=== PATIENT | male | born 1990 | race Caucasian/White ===

== ENCOUNTER → 2017-08-01 | Outpatient (CLI) | payer MEDICARE, MEDICAID ==
[~2017-08-01] MED LIST: AMLO1TAB52; ATRV10T PO; CHLO250T9; CYCL100C3 PO; CYCLOSPORIN PO; CYCLOSPORINE; DIPH25TA82; FLT05NA16; FURO40TA4; HYDR10TA13 PO; HYDR1TAB PO; HYDROCHLOROTHIAZIDE; INSU3CAR; INSULIN PUMP; LABE100T2; LAMO100T69; LAMO100T69 PO; LAMO150T3 PO; LAMO200T14; LISI20TA; LISI40TA; LISI40TA PO; MULT-608 PO; NF-FLON16G; NOVOLOG; OMEP-10; OMG1KC PO; PENICILLIN; PRD10T; PRD10T PO; PRD20T PO; RNT150T; SAWP1CAP PO; SERT50TA2 PO; TRAZ150T42 PO; TRM50T PO; [UNRECOGNIZED DRUG - CODE]; [UNRECOGNIZED DRUG - CODE] PO
[2017-08-01 13:51] LABS: BILIRUBIN,URINE NEGATIVE (NEGATIVE); KETONES,URINE NEGATIVE (NEGATIVE); LEUKOCYTE ESTERASE ,URINE NEGATIVE (NEGATIVE); NITRITE,URINE NEGATIVE (NEGATIVE); PH,URINE 5 (5-9); PROTEIN,URINE 2+ (NEGATIVE); UROBILINOGEN,URINE NORMAL (NORMAL)
[2017-08-01 14:02] LABS: MEAN PLATELET VOLUME 9.9 FL (7.4-10.4); RED BLOOD COUNT 4.4 10^6/uL (4.35-5.85); RED CELL DISTRIBUTION WIDTH 12.1 % (10.0-14.5); WHITE BLOOD COUNT 10.4 10^3/uL (4.3-11.0)
[2017-08-01 14:10] LABS: PROTEIN/CREATININE RATIO 0.76
[2017-08-01 14:16] LABS: SQUAMOUS EPITHELIAL CELL,UR RARE /HPF; WBC,URINE RARE /HPF
[2017-08-01 14:23] LABS: ALBUMIN 3.9 GM/DL (3.2-4.5); CALCIUM 9.3 MG/DL (8.5-10.1); CREATININE SERUM 4.01 MG/DL (0.60-1.30); PHOSPHORUS 4.4 MG/DL (2.3-4.7); POTASSIUM 4.3 MMOL/L (3.6-5.0)
[2017-08-02 07:14] LABS: CALCIUM PARA THYROID HORMONE 9.3 mg/dL (8.5-10.5)
== END ==
LOC: LAB 13:33
PROVIDERS: ATTEND Internal Medicine Nephrology
DX: E10.22 Type 1 diabetes mellitus with diabetic chronic kidney disease (principal); N18.4 Chronic kidney disease, stage 4 (severe); G40.109 Localization-related (focal) (partial) symptomatic epilepsy and epileptic syndromes with simple partial seizures, not intractable, without status epilepticus; R80.9 Proteinuria, unspecified; Z87.448 Personal history of other diseases of urinary system
CPT/HCPCS: 36415; 80069; 81000; 82306; 82570; 83970; 84156; 85027

== ENCOUNTER → 2017-11-06 | Outpatient (CLI) | payer MEDICARE, MEDICAID ==
[2017-11-06 15:28] LABS: HEMOGLOBIN 14.7 G/DL (13.3-17.7); MEAN PLATELET VOLUME 9.7 FL (7.4-10.4); RED BLOOD COUNT 4.95 10^6/uL (4.35-5.85); RED CELL DISTRIBUTION WIDTH 13.2 % (10.0-14.5); WHITE BLOOD COUNT 9.9 10^3/uL (4.3-11.0)
[2017-11-06 15:47] LABS: ALBUMIN 4.2 GM/DL (3.2-4.5); BILIRUBIN,TOTAL 0.4 MG/DL (0.1-1.0); CREATININE SERUM 4.72 MG/DL (0.60-1.30); POTASSIUM 4.9 MMOL/L (3.6-5.0); TOTAL PROTEIN 6.9 GM/DL (6.4-8.2)
== END ==
LOC: LAB 14:43
PROVIDERS: ATTEND Psychiatry & Neurology Neurology
DX: G40.909 Epilepsy, unspecified, not intractable, without status epilepticus (principal); Z79.899 Other long term (current) drug therapy
CPT/HCPCS: 36415; 80053; 80175; 85027

== ENCOUNTER 2017-11-14 18:07 | Emergency (ER) | payer MEDICARE, MEDICAID ==
[~2017-11-14] VITALS: Ht 154.9 cm; Wt 64.4 kg
--- OUTSIDE RECORDS SUMMARY | 2017-11-14 18:13 | XMS REPORT ---
Author Author ROSENDO RODRÍGUEZ Organization [facility] [place], [facility] Address [address] [place] [address] Care Team Providers Care Caterpillar Tractor Operator Name Role Phone ROSENDO RODRÍGUEZ Unavailable PROBLEMS Type Condition ICD9-CM Code WOK41-UT Code Onset Dates Condition Status SNOMED Code Problem Intrinsic eczema L20.84 Active 06062875 Problem Type 1 diabetes mellitus without complication E10.9 Active 007400154 Problem Dysthymic disorder F34.1 Active 94115403 ALLERGIES No Information SOCIAL HISTORY Never Assessed PLAN OF CARE Activity Details Follow Up next available Reason:depression VITAL SIGNS MEDICATIONS Medication Instructions Dosage Frequency Start Date End Date Duration Status PredniSONE Active Lamotrigine Active Furosemide Active Potassium Active Lisinopril Active Citalopram Hydrobromide Active RESULTS No Results PROCEDURES Procedure Date Ordered Result Body Site Psychotherapy, patient &/family, 30 minutes, new patient January 05, 2017 IMMUNIZATIONS No Known Immunizations MEDICAL (GENERAL) HISTORY Type Description Date Medical History nephrotic syndrome Medical History diabetes Medical History epilepsy Medical History HTN Medical History low testosterone Surgical History kidney biopsy Hospitalization History Concussion- hospitalized for 1 month 2014 (?)
--- OUTSIDE RECORDS SUMMARY | 2017-11-14 18:13 | XMS REPORT ---
Author Author ROSENDO RODRÍGUEZ Organization [facility] Address [address] [place] [address] Care Team Providers Care Customer Accounts Advisor Name Role Phone ROSENDO RODRÍGUEZ Unavailable PROBLEMS Type Condition ICD9-CM Code [id number] Code Onset Dates Condition Status SNOMED Code Problem Intrinsic eczema L20.84 Active 29418161 Problem Type 1 diabetes mellitus without complication E10.9 Active 466060120 Problem Dysthymic disorder F34.1 Active 35315247 ALLERGIES No Information SOCIAL HISTORY Never Assessed PLAN OF CARE VITAL SIGNS MEDICATIONS Unknown Medications RESULTS No Results PROCEDURES Procedure Date Ordered Result Body Site [facility] VISIT MENTAL HEALTH ESTAB PT January 23, 2017 Psychotherapy, patient &/family, 30 minutes, established patient January 23, 2017 IMMUNIZATIONS No Known Immunizations MEDICAL (GENERAL) HISTORY Type Description Date Medical History nephrotic syndrome Medical History diabetes Medical History epilepsy Medical History HTN Medical History low testosterone Surgical History kidney biopsy Hospitalization History Concussion- hospitalized for 1 month 2014 (?)
--- OUTSIDE RECORDS SUMMARY | 2017-11-14 18:13 | XMS REPORT ---
Author Author ROSENDO RODRÍGUEZ Organization [facility] Address [address] [place] [address] Care Team Providers Care Real Estate Attorney Name Role Phone ROSENDO RODRÍGUEZ Unavailable PROBLEMS Type Condition ICD9-CM Code GAW26-UD Code Onset Dates Condition Status SNOMED Code Problem Intrinsic eczema L20.84 Active 86439696 Problem Type 1 diabetes mellitus without complication E10.9 Active 562397141 Problem Dysthymic disorder F34.1 Active 78559601 ALLERGIES No Information SOCIAL HISTORY Never Assessed PLAN OF CARE Activity Details Follow Up Next available Reason:depression VITAL SIGNS MEDICATIONS Unknown Medications RESULTS No Results PROCEDURES Procedure Date Ordered Result Body Site [facility] VISIT MENTAL HEALTH ESTAB PT January 15, 2017 Psychotherapy, patient &/family, 30 minutes, established patient January 15, 2017 IMMUNIZATIONS No Known Immunizations MEDICAL (GENERAL) HISTORY Type Description Date Medical History nephrotic syndrome Medical History diabetes Medical History epilepsy Medical History HTN Medical History low testosterone Surgical History kidney biopsy Hospitalization History Concussion- hospitalized for 1 month 2014 (?)
--- NOTE | 2017-11-14 20:12 | ED Head Injury ---
General Chief Complaint: Trauma-Non Activation Stated Complaint: JAW PAIN;NAUSEA Nursing Triage Note: PT AMBULATED TO ED C/O JAW PAIN FROM FALL ON 11/10/17. Source: patient Exam Limitations: no limitations History of Present Illness Date Seen by Provider: Nov 14, 2017 Allergies and Home Medications Allergies Coded Allergies: Penicillins (Verified Allergy, Unknown, 11/14/17) levetiracetam (Verified Allergy, Unknown, 11/14/17) promethazine (Verified Allergy, Unknown, 04/04/09) Home Medications Atorvastatin Calcium 10 Mg Tablet, 1 EACH PO DAILY, (Reported) Chlorothiazide 500 Mg Tablet, 500 MG PO DAILY, (Reported) Cyclosporine, Modified 100 Mg Capsule, 125 MG PO BID, (Reported) Fluticasone Propionate 50 Mcg/16 G [place], 50 MCG NA DAILY, (Reported) Hydrocodone Bit/Acetaminophen 1 Tab Tab, 1 TAB PO Q4H PRN for pain Prescribed by: MAYELA LOPEZ on 11/14/172229 Lamotrigine 100 Mg Tablet, 125 MG PO BID, (Reported) Lisinopril 40 Mg Tablet, 1 EACH PO DAILY, (Reported) Multivitamins 1 Tab Tablet, 1 TAB PO DAILY, (Reported) [place] 3 Polyunsat Fatty Acids 1,000 Mg Cap, 900 MG PO DAILY, (Reported) Prednisone 10 Mg Tab, 10 MG PO QOD, (Reported) Sawpalmtofrtxt/Zinc Picolinate 1 Each Capsule, 1 EACH PO BID, (Reported) Sertraline Hcl 50 Mg Tablet, 50 MG PO DAILY, (Reported) Trazodone Hcl 150 Mg Tablet, 100 MG PO PRN, (Reported) Past Qwxxwcg-Nntqpb-Swfpvi Hx Patient Social History Recent Foreign Travel: No Contact w/Someone Who Travel: No Recent Infectious Disease Expo: No Reproductive System Hx Reproductive Disorders: No Physical Exam Vital Signs Vital Signs - First Documented 11/14/17 11/14/17 18:27 19:10 Temp 98.0 Pulse 87 Resp 16 B/P (MAP) 130/91 (104) Pulse Ox 97 O2 Delivery Room Air Capillary Refill : Less Than 3 Seconds Progress/Results/Core Measures Results/Orders Lab Results Laboratory Tests Test 11/14/17 20:30 11/14/17 20:36 Range/Units White Blood Count 9.6 4.3-11.0 10^3/uL Red Blood Count 4.98 4.35-5.85 10^6/uL Hemoglobin 14.9 13.3-17.7 G/DL Hematocrit 43 40-54 % Mean Corpuscular Volume 86 80-99 FL Mean Corpuscular Hemoglobin 30 25-34 PG Mean Corpuscular Hemoglobin Concent 35 32-36 G/DL Red Cell Distribution Width 13.1 10.0-14.5 % Platelet Count 384 130-400 10^3/uL Mean Platelet Volume 10.0 7.4-10.4 FL Neutrophils (%) (Auto) 52 42-75 % Lymphocytes (%) (Auto) 26 12-44 % Monocytes (%) (Auto) 7 0-12 % Eosinophils (%) (Auto) 14 H 0-10 % Basophils (%) (Auto) 1 0-10 % Neutrophils # (Auto) 5.0 1.8-7.8 X 10^3 Lymphocytes # (Auto) 2.5 1.0-4.0 X 10^3 Monocytes # (Auto) 0.7 0.0-1.0 X 10^3 Eosinophils # (Auto) 1.3 H 0.0-0.3 10^3/uL Basophils # (Auto) 0.1 0.0-0.1 10^3/uL Neutrophils % (Manual) 45 % Lymphocytes % (Manual) 28 % Monocytes % (Manual) 5 % Eosinophils % (Manual) 18 % Basophils % (Manual) 2 % Band Neutrophils 2 % Blood Morphology Comment NORMAL Sodium Level 134 L 135-145 MMOL/L Potassium Level 4.5 3.6-5.0 MMOL/L Chloride Level 109 H 98-107 MMOL/L Carbon Dioxide Level 14 L 21-32 MMOL/L Anion Gap 11 5-14 MMOL/L Blood Urea Nitrogen 42 H 7-18 MG/DL Creatinine 4.90 H 0.60-1.30 MG/DL Estimat Glomerular Filtration Rate 14 BUN/Creatinine Ratio 9 Glucose Level 245 H 70-105 MG/DL Calcium Level 9.4 8.5-10.1 MG/DL Total Bilirubin 0.3 0.1-1.0 MG/DL Aspartate Amino Transf (AST/SGOT) 14 5-34 U/L Alanine Aminotransferase (ALT/SGPT) 15 0-55 U/L Alkaline Phosphatase 83 40-136 U/L Total Protein 6.5 6.4-8.2 GM/DL Albumin 4.1 3.2-4.5 GM/DL TSH Cuming Testing 0.98 0.35-4.94 UIU/ML Urine Color YELLOW Urine Clarity CLEAR Urine pH 5 5-9 Urine Specific [place] 1.015 L 1.016-1.022 Urine Protein 3+ H NEGATIVE Urine Glucose (UA) 4+ H NEGATIVE Urine Ketones NEGATIVE NEGATIVE Urine Nitrite NEGATIVE NEGATIVE Urine Bilirubin NEGATIVE NEGATIVE Urine Urobilinogen NORMAL NORMAL MG/DL Urine Leukocyte Esterase NEGATIVE NEGATIVE Urine RBC (Auto) 1+ H NEGATIVE Urine RBC 0-2 /HPF Urine WBC RARE /HPF Urine Squamous Epithelial Cells 0-2 /HPF Urine Crystals NONE /LPF Urine Bacteria NONE /HPF Urine Casts NONE /LPF Urine Mucus NEGATIVE /LPF Urine Culture Indicated NO My Orders Orders - MAYELA LOPEZ Cbc With Automated Diff (11/14/17 19:26) Comprehensive Metabolic Panel (11/14/17 19:26) Thyroid Analyzer (11/14/17 19:26) Ua Culture If Indicated (11/14/17 19:26) Ct Head/Face/Cervical Wo (11/14/17 19:26) Ct Thoracic/Lumbar Spine Wo (11/14/17 19:26) Saline Lock/Iv-Start (11/14/17 19:26) Manual Differential (11/14/17 20:30) Morphine Injection (Morphine Injection (11/14/17 21:15) Lamotrigine Level (11/14/17 21:18) Free T4 (Free Thyroxine) (11/14/17 20:30) Vital Signs/I&O Vital Sign - Last 12Hours 11/14/17 11/14/17 11/14/17 18:27 19:10 22:49 Temp 98.0 98.0 98.2 Pulse 87 87 94 Resp 16 18 18 B/P (MAP) 130/91 (104) 130/91 (104) 133/97 Pulse Ox 97 98 O2 Delivery Room Air Room Air Departure Impression Impression: Primary Impression: Minor head injury Additional Impressions: Seizures Strain of lumbar spine Strain of thoracic spine Contusion of jaw Disposition: HOME, SELF-CARE Condition: Improved Departure-Patient Inst. Decision time for Depature: 22:27 Referrals: JORGE L JEFFERSON MD (PCP/Family) Primary Care Physician Patient Instructions: Lumbar Muscle Strain (DC), Minor Head Injury (DC) Add. Discharge Instructions: All discharge instructions reviewed with patient and/or family. Voiced understanding. Medications as instructed. Continue usual home medications. Ice pack for 20 minute intervals for 2-3 days, then heating pad or pack as needed. Avoid strenuous activity. Follow-up with Dr. Jefferson, your neurologist your regional vice president surgical sales as an outpatient for recheck. Return to the emergency department for worsened headache, dizziness, changes in behavior, slurred speech , weakness, difficulty swallowing, difficulty breathing, numbness, seizure, shortness of air, chest pain, vomiting, or any other concerns. Scripts Hydrocodone Bit/Acetaminophen (Hydrocodone/Acetaminophen 5/325mg Tablet) 1 Tab Tab 1 TAB PO Q4H Y for pain, #20 TAB 0 Refills Prov: MAYELA LOPEZ 11/14/17 MAYELA LOPEZ Nov 14, 2017 20:12
--- NOTE | 2017-11-14 20:12 | Diagnostic Imaging Report ---
PROCEDURE: CT head, face, and cervical spine without contrast. TECHNIQUE: Multiple contiguous axial images were obtained through the head, neck, and facial bones without the use of intravenous contrast. Sagittal and coronal reformations through the cervical spine and facial bones were also performed. INDICATION: Seizure, fell on Sunday, left jaw pain and headache COMPARISON STUDY: CT scan of the head, face and cervical spine from 2008. FINDINGS: CT scan of the head demonstrates no mass effect, midline shift, hemorrhage, or extra-axial collections. [place]-white matter differentiation is normal. Mastoid air cells are clear. CT scan of the facial bones demonstrates no fracture. Previous sinus disease has cleared. The temporomandibular joints are normally seated. The eye globes appear unremarkable. No hematomas or foreign bodies are identified. CT scanning of the cervical spine demonstrates no fracture or subluxation. The disc spaces are of normal width. No stenotic lesions are present. The soft tissues of the neck appear normal. IMPRESSION: Normal CT scan of the head, cervical spine, and facial bones. The previous sinusitis has cleared. Dictated by: Dictated on workstation # [id number]
--- NOTE | 2017-11-14 20:13 | Diagnostic Imaging Report ---
INDICATION: Seizure, fell on Sunday mid and lower back pain. COMPARISON STUDY: None FINDINGS: CT scanning of the thoracic spine demonstrates normal ossification. No fracture or subluxation is present. Disc spaces are of normal width. Visualized portions of the lungs are clear. A left jugular central venous catheter is in place. CT imaging of the lumbar spine demonstrates no fracture or subluxation. 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 No fractures or subluxations are present. 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 IMPRESSION: 1. Normal thoracic spine. 2. 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 These appear chronic. Dictated by: Dictated on workstation # [id number]
[2017-11-14 20:39] LABS: BASOPHILS # (AUTO) 0.1 10^3/uL (0.0-0.1); BASOPHILS % (AUTO) 1 % (0-10); EOSINOPHILS # (AUTO) 1.3 10^3/uL (0.0-0.3); EOSINOPHILS % (AUTO) 14 % (0-10); HEMATOCRIT 43 % (40-54); HEMOGLOBIN 14.9 G/DL (13.3-17.7); LYMPHOCYTES # (AUTO) 2.5 X 10^3 (1.0-4.0); LYMPHOCYTES % (AUTO) 26 % (12-44); MEAN CORPUSCULAR HEMOGLOBIN 30 PG (25-34); MEAN CORPUSCULAR HGB CONC 35 G/DL (32-36); MEAN CORPUSCULAR VOLUME 86 FL (80-99); MONOCYTES # (AUTO) 0.7 X 10^3 (0.0-1.0); MONOCYTES % (AUTO) 7 % (0-12); NEUTROPHILS % (AUTO) 52 % (42-75); PLATELET COUNT 384 10^3/uL (130-400); RED BLOOD COUNT 4.98 10^6/uL (4.35-5.85); RED CELL DISTRIBUTION WIDTH 13.1 % (10.0-14.5); WHITE BLOOD COUNT 9.6 10^3/uL (4.3-11.0)
[2017-11-14 20:44] LABS: BILIRUBIN,URINE NEGATIVE (NEGATIVE); CLARITY,URINE CLEAR; COLOR,URINE YELLOW; GLUCOSE, URINE (UA) 4+ (NEGATIVE); KETONES,URINE NEGATIVE (NEGATIVE); LEUKOCYTE ESTERASE ,URINE NEGATIVE (NEGATIVE); NITRITE,URINE NEGATIVE (NEGATIVE); PH,URINE 5 (5-9); PROTEIN,URINE 3+ (NEGATIVE); UROBILINOGEN,URINE NORMAL (NORMAL)
[2017-11-14 20:58] LABS: RBC,URINE 0-2 /HPF; SQUAMOUS EPITHELIAL CELL,UR 0-2 /HPF; WBC,URINE RARE /HPF
[2017-11-14 20:59] LABS: ALBUMIN 4.1 GM/DL (3.2-4.5); BILIRUBIN,TOTAL 0.3 MG/DL (0.1-1.0); CALCIUM 9.4 MG/DL (8.5-10.1); CREATININE SERUM 4.9 MG/DL (0.60-1.30); POTASSIUM 4.5 MMOL/L (3.6-5.0); TOTAL PROTEIN 6.5 GM/DL (6.4-8.2)
[2017-11-14 21:05] LABS: BAND NEUTROPHILS 2 %; BASOPHILS % (MANUAL) 2 %; EOSINOPHILS % (MANUAL) 18 %; LYMPHOCYTES % (MANUAL) 28 %; MONOCYTES % (MANUAL) 5 %; NEUTROPHILS % (MANUAL) 45 %; RBC MORPH NORMAL
[2017-11-14] MEDS ORDERED: morphine INJ 10 MG/ML 1ML (SYR OR VIAL) IVP STA (21:15)
[2017-11-14 22:15] LABS: TSH (THYROID ANALYZER) 0.98 UIU/ML (0.35-4.94)
[2017-11-14] MEDS ORDERED: ACHD5005 PO (22:30)
[2017-11-14 22:49] VITALS: BP 133/97
[2017-11-14 23:50] LABS: FREE T4 (FREE THYROXINE) 1.32 NG/DL (0.70-1.48)
== END 2017-11-14 22:47 | disposition home or self-care (01) ==
LOC: EDUNIT# 18:07 → ER 18:08
DX: S09.90XA Unspecified injury of head, initial encounter (principal); S39.012A Strain of muscle, fascia and tendon of lower back, initial encounter; S23.3XXA Sprain of ligaments of thoracic spine, initial encounter; S00.83XA Contusion of other part of head, initial encounter; R56.9 Unspecified convulsions; Z79.52 Long term (current) use of systemic steroids; Z88.0 Allergy status to penicillin; Z88.8 Allergy status to other drugs, medicaments and biological substances; Z88.1 Allergy status to other antibiotic agents; W19.XXXA Unspecified fall, initial encounter
CPT/HCPCS: 36415; 70450; 70486; 72125; 72128; 72131; 80053; 80175; 81000; 84439; 84443; 85007; 85027

== ENCOUNTER → 2017-11-22 | Outpatient (CLI) | payer MEDICARE, MEDICAID ==
[~2017-11-22] MED LIST changes: +ACHD5005 PO
[2017-11-22 18:10] LABS: HEMOGLOBIN 13.8 G/DL (13.3-17.7); MEAN PLATELET VOLUME 9.6 FL (7.4-10.4); RED BLOOD COUNT 4.61 10^6/uL (4.35-5.85); WHITE BLOOD COUNT 13.3 10^3/uL (4.3-11.0)
[2017-11-22 18:27] LABS: ALBUMIN 4.1 GM/DL (3.2-4.5); CALCIUM 9.6 MG/DL (8.5-10.1); CREATININE SERUM 4.56 MG/DL (0.60-1.30); PHOSPHORUS 3.3 MG/DL (2.3-4.7); POTASSIUM 4.7 MMOL/L (3.6-5.0)
== END ==
LOC: RAD 17:48
DX: N18.4 Chronic kidney disease, stage 4 (severe) (principal); G40.109 Localization-related (focal) (partial) symptomatic epilepsy and epileptic syndromes with simple partial seizures, not intractable, without status epilepticus; E10.9 Type 1 diabetes mellitus without complications; R80.9 Proteinuria, unspecified; N04.9 Nephrotic syndrome with unspecified morphologic changes; Z87.448 Personal history of other diseases of urinary system
CPT/HCPCS: 36415; 80069; 82306; 82570; 83970; 84156; 85027

== ENCOUNTER → 2017-12-04 | Outpatient (CLI) | payer MEDICARE, MEDICAID ==
[2017-12-04 17:44] LABS: BASOPHILS # (AUTO) 0.1 10^3/uL (0.0-0.1); BASOPHILS % (AUTO) 1 % (0-10); EOSINOPHILS # (AUTO) 0.9 10^3/uL (0.0-0.3); EOSINOPHILS % (AUTO) 9 % (0-10); HEMATOCRIT 42 % (40-54); HEMOGLOBIN 14.1 G/DL (13.3-17.7); LYMPHOCYTES # (AUTO) 2.7 X 10^3 (1.0-4.0); LYMPHOCYTES % (AUTO) 28 % (12-44); MEAN CORPUSCULAR HEMOGLOBIN 30 PG (25-34); MEAN CORPUSCULAR HGB CONC 34 G/DL (32-36); MEAN CORPUSCULAR VOLUME 88 FL (80-99); MONOCYTES # (AUTO) 0.9 X 10^3 (0.0-1.0); MONOCYTES % (AUTO) 10 % (0-12); NEUTROPHILS % (AUTO) 52 % (42-75); PLATELET COUNT 417 10^3/uL (130-400); RED BLOOD COUNT 4.72 10^6/uL (4.35-5.85); RED CELL DISTRIBUTION WIDTH 13.4 % (10.0-14.5); WHITE BLOOD COUNT 9.6 10^3/uL (4.3-11.0)
[2017-12-04 18:00] LABS: ALBUMIN 4.2 GM/DL (3.2-4.5); BILIRUBIN,TOTAL 0.4 MG/DL (0.1-1.0); CALCIUM 9.4 MG/DL (8.5-10.1); CREATININE SERUM 3.97 MG/DL (0.60-1.30); MAGNESIUM 1.8 MG/DL (1.8-2.4); PHOSPHORUS 3.5 MG/DL (2.3-4.7); POTASSIUM 4.3 MMOL/L (3.6-5.0); TOTAL PROTEIN 6.6 GM/DL (6.4-8.2)
== END ==
LOC: LAB 17:20
PROVIDERS: ATTEND Family Medicine
DX: E10.22 Type 1 diabetes mellitus with diabetic chronic kidney disease (principal); R53.83 Other fatigue; N18.4 Chronic kidney disease, stage 4 (severe)
CPT/HCPCS: 36415; 80053; 83605; 83735; 84100; 85025

== ENCOUNTER → 2017-12-07 | Outpatient (CLI) | payer MEDICARE, MEDICAID ==
--- NOTE | 2017-12-07 15:12 | Diagnostic Imaging Report ---
PROCEDURE: CT head without contrast. TECHNIQUE: Multiple contiguous axial images were obtained through the brain without the use of intravenous contrast. INDICATION: Seizure with fall and headache. CT HEAD: Multiple contiguous axial CT images of the head were obtained. FINDINGS: Ventricles and sulci are within normal limits for size. There is no intracranial hemorrhage identified. There is no abnormal mass effect or shift of midline structures. IMPRESSION: Unremarkable CT of the head. Dictated by: Dictated on workstation # [id number]
== END ==
LOC: RAD 14:56
PROVIDERS: ATTEND Physician Assistant
DX: S06.9X9A Unspecified intracranial injury with loss of consciousness of unspecified duration, initial encounter (principal); R56.9 Unspecified convulsions; W19.XXXA Unspecified fall, initial encounter
CPT/HCPCS: 70450

== ENCOUNTER → 2018-01-31 | Outpatient (CLI) | payer MEDICARE, MEDICAID ==
[2018-01-31 12:13] LABS: HEMOGLOBIN 12.9 G/DL (13.3-17.7); MEAN PLATELET VOLUME 9.8 FL (7.4-10.4); RED BLOOD COUNT 4.32 10^6/uL (4.35-5.85); RED CELL DISTRIBUTION WIDTH 13.5 % (10.0-14.5); WHITE BLOOD COUNT 9.8 10^3/uL (4.3-11.0)
[2018-01-31 12:31] LABS: CALCIUM 8.8 MG/DL (8.5-10.1); CREATININE SERUM 4.72 MG/DL (0.60-1.30); PHOSPHORUS 4.1 MG/DL (2.3-4.7); POTASSIUM 3.9 MMOL/L (3.6-5.0)
== END ==
LOC: LAB 11:40
PROVIDERS: ATTEND Internal Medicine Nephrology
DX: E10.9 Type 1 diabetes mellitus without complications (principal); G40.109 Localization-related (focal) (partial) symptomatic epilepsy and epileptic syndromes with simple partial seizures, not intractable, without status epilepticus; Z87.448 Personal history of other diseases of urinary system; N18.4 Chronic kidney disease, stage 4 (severe); R80.9 Proteinuria, unspecified; N04.9 Nephrotic syndrome with unspecified morphologic changes
CPT/HCPCS: 36415; 80069; 82306; 82570; 83970; 84156; 85027

== ENCOUNTER → 2018-01-31 | Outpatient (CLI) | payer MEDICARE, MEDICAID ==
[2018-01-31 12:13] LABS: MEAN PLATELET VOLUME 9.8 FL (7.4-10.4); RED BLOOD COUNT 4.31 10^6/uL (4.35-5.85); RED CELL DISTRIBUTION WIDTH 13.5 % (10.0-14.5); WHITE BLOOD COUNT 9.5 10^3/uL (4.3-11.0)
[2018-01-31 12:31] LABS: ALBUMIN 4.1 GM/DL (3.2-4.5); BILIRUBIN,TOTAL 0.3 MG/DL (0.1-1.0); CALCIUM 8.7 MG/DL (8.5-10.1); CREATININE SERUM 4.7 MG/DL (0.60-1.30); MAGNESIUM 1.7 MG/DL (1.8-2.4); PHOSPHORUS 4.1 MG/DL (2.3-4.7); POTASSIUM 3.9 MMOL/L (3.6-5.0); TOTAL PROTEIN 6.5 GM/DL (6.4-8.2)
== END ==
LOC: LAB 11:38
PROVIDERS: ATTEND Family Medicine
DX: R53.83 Other fatigue (principal); E10.22 Type 1 diabetes mellitus with diabetic chronic kidney disease; N18.4 Chronic kidney disease, stage 4 (severe)
CPT/HCPCS: 36415; 80053; 83605; 83735; 84100; 85027

== ENCOUNTER → 2018-02-11 | Outpatient (CLI) | payer MEDICARE, MEDICAID ==
--- NOTE | 2018-02-11 10:55 | Diagnostic Imaging Report ---
PROCEDURE: US Renal Bilateral. TECHNIQUE: Multiple real-time grayscale images were obtained over the kidneys in various projections bilaterally. INDICATION: Diabetes and chronic kidney disease. FINDINGS: The right kidney measures 8.8 x 5.3 x 4.9 cm and the left kidney measures 9.8 x 4.9 x 4.4 cm. Cortical thickness and echogenicity is grossly unremarkable. No calculi or hydronephrosis is seen. The bladder is unremarkable. IMPRESSION: Unremarkable renal ultrasound. Dictated by: Dictated on workstation # [id number]
--- NOTE | 2018-02-11 11:03 | Diagnostic Imaging Report ---
INDICATION: Chronic kidney disease. TECHNIQUE: Multiple real-time grayscale images were obtained over the pelvis in various projections transabdominally. Prevoid bladder volume is 32 mL. Post void bladder volume is 0. No bladder wall thickening or mass is seen. IMPRESSION: Unremarkable bladder ultrasound. Dictated by: Dictated on workstation # [id number]
== END ==
LOC: RAD 09:57
PROVIDERS: ATTEND Internal Medicine Nephrology
DX: N18.4 Chronic kidney disease, stage 4 (severe) (principal); E10.9 Type 1 diabetes mellitus without complications; G40.109 Localization-related (focal) (partial) symptomatic epilepsy and epileptic syndromes with simple partial seizures, not intractable, without status epilepticus; G40.909 Epilepsy, unspecified, not intractable, without status epilepticus; N04.9 Nephrotic syndrome with unspecified morphologic changes; N05.9 Unspecified nephritic syndrome with unspecified morphologic changes; E87.2 Acidosis; R39.198 Other difficulties with micturition; Z87.448 Personal history of other diseases of urinary system
CPT/HCPCS: 76770; 76857

== ENCOUNTER → 2018-04-18 | Outpatient (CLI) | payer MEDICARE, MEDICAID ==
[~2018-04-18] MED LIST changes: +CLON1TAB4; +HYDR-3812 PO; +ONDA4TAB8 SL
[2018-04-18 17:56] LABS: HEMOGLOBIN 13.7 G/DL (13.3-17.7); MEAN PLATELET VOLUME 9.2 FL (7.4-10.4); RED BLOOD COUNT 4.6 10^6/uL (4.35-5.85); WHITE BLOOD COUNT 10.3 10^3/uL (4.3-11.0)
[2018-04-18 18:13] LABS: BILIRUBIN,URINE NEGATIVE (NEGATIVE); CLARITY,URINE CLEAR; COLOR,URINE YELLOW; GLUCOSE, URINE (UA) 1+ (NEGATIVE); KETONES,URINE NEGATIVE (NEGATIVE); LEUKOCYTE ESTERASE ,URINE NEGATIVE (NEGATIVE); NITRITE,URINE NEGATIVE (NEGATIVE); PH,URINE 5 (5-9); PROTEIN,URINE 3+ (NEGATIVE); UROBILINOGEN,URINE NORMAL (NORMAL)
[2018-04-18 18:15] LABS: ALBUMIN 4.5 GM/DL (3.2-4.5); CALCIUM 9.1 MG/DL (8.5-10.1); CREATININE SERUM 4.5 MG/DL (0.60-1.30); PHOSPHORUS 4.6 MG/DL (2.3-4.7); POTASSIUM 4.1 MMOL/L (3.6-5.0); URIC ACID 8.3 MG/DL (2.6-7.2)
[2018-04-18 18:24] LABS: RBC,URINE 0-2 /HPF
[2018-04-18 18:25] LABS: URINE OTHER 3+ SPERM /HPF
== END ==
LOC: LAB 17:35
PROVIDERS: ATTEND Internal Medicine Nephrology
DX: N18.4 Chronic kidney disease, stage 4 (severe) (principal); E10.9 Type 1 diabetes mellitus without complications; G40.109 Localization-related (focal) (partial) symptomatic epilepsy and epileptic syndromes with simple partial seizures, not intractable, without status epilepticus; R80.9 Proteinuria, unspecified; N04.9 Nephrotic syndrome with unspecified morphologic changes; N05.0 Unspecified nephritic syndrome with minor glomerular abnormality; E87.2 Acidosis; Z87.448 Personal history of other diseases of urinary system
CPT/HCPCS: 36415; 80069; 81000; 82306; 82570; 83970; 84156; 84550; 85027

== ENCOUNTER → 2018-05-31 | Outpatient (CLI) | payer MEDICARE, MEDICAID ==
[~2018-05-31] MED LIST changes: +CLON1TAB13; -CLON1TAB4
--- NOTE | 2018-05-31 11:57 | Diagnostic Imaging Report ---
INDICATION: Abdominal pain for at least one month. Chronic renal disease. TECHNIQUE: Multiple grayscale sonographic images were obtained of the right upper quadrant of the abdomen. CORRELATION STUDY: None FINDINGS: LIVER: There is uniform echotexture within the visualized portions of the liver. There is normal, hepatopedal direction of flow within the main portal vein. Liver appearing somewhat small at 12 cm. GALLBLADDER: The gallbladder demonstrates no definitive shadowing gallstones. No abnormal gallbladder wall thickening or pericholecystic fluid. COMMON BILE DUCT: Nondilated at 3 mm. PANCREAS: Largely obscured. RIGHT KIDNEY: Measures 7.4 x 5.1 x 4.5 cm. Diffuse thinning of the renal parenchyma likely reflect chronic medical renal disease. No hydronephrosis. AORTA/IVC: Not well visualized. OTHER: None. IMPRESSION: 1. Overall somewhat small appearance about the liver, nonspecific. 2. Diffusely small, thin parenchyma about the left kidney. Dictated by: Dictated on workstation # [id number]
== END ==
LOC: RAD 08:30
PROVIDERS: ATTEND Internal Medicine Endocrinology, Diabetes & Metabolism
DX: R10.9 Unspecified abdominal pain (principal); N18.9 Chronic kidney disease, unspecified
CPT/HCPCS: 76705

== ENCOUNTER → 2018-07-09 | Outpatient (CLI) | payer MEDICARE, MEDICAID ==
[2018-07-09 17:54] LABS: HEMOGLOBIN 13.9 G/DL (13.3-17.7); MEAN PLATELET VOLUME 9.4 FL (7.4-10.4); RED BLOOD COUNT 4.75 10^6/uL (4.35-5.85); WHITE BLOOD COUNT 7.4 10^3/uL (4.3-11.0)
[2018-07-09 17:56] LABS: BILIRUBIN,URINE NEGATIVE (NEGATIVE); CLARITY,URINE CLEAR; COLOR,URINE YELLOW; GLUCOSE, URINE (UA) 1+ (NEGATIVE); KETONES,URINE NEGATIVE (NEGATIVE); LEUKOCYTE ESTERASE ,URINE NEGATIVE (NEGATIVE); NITRITE,URINE NEGATIVE (NEGATIVE); PH,URINE 6.5 (5-9); PROTEIN,URINE 3+ (NEGATIVE); UROBILINOGEN,URINE NORMAL (NORMAL)
[2018-07-09 18:03] LABS: BACTERIA,URINE NEGATIVE /HPF; WBC,URINE RARE /HPF
[2018-07-09 18:14] LABS: ALBUMIN 4.1 GM/DL (3.2-4.5); CALCIUM 9.4 MG/DL (8.5-10.1); CREATININE SERUM 3.22 MG/DL (0.60-1.30); PHOSPHORUS 5.1 MG/DL (2.3-4.7); POTASSIUM 4.3 MMOL/L (3.6-5.0); URIC ACID 9.5 MG/DL (2.6-7.2)
== END ==
LOC: LAB 17:35
PROVIDERS: ATTEND Internal Medicine Nephrology
DX: E10.9 Type 1 diabetes mellitus without complications (principal); N18.4 Chronic kidney disease, stage 4 (severe); G40.109 Localization-related (focal) (partial) symptomatic epilepsy and epileptic syndromes with simple partial seizures, not intractable, without status epilepticus; Z87.448 Personal history of other diseases of urinary system; R80.9 Proteinuria, unspecified; N04.9 Nephrotic syndrome with unspecified morphologic changes; N05.0 Unspecified nephritic syndrome with minor glomerular abnormality; E87.2 Acidosis
CPT/HCPCS: 36415; 80069; 81000; 82306; 82570; 83970; 84156; 84550; 85027

== ENCOUNTER → 2018-07-18 | Outpatient (CLI) | payer MEDICARE, MEDICAID ==
--- NOTE | 2018-07-18 11:52 | Diagnostic Imaging Report ---
INDICATION: Rib fracture. COMPARISON: None. FINDINGS: AP Spine L1-L4: [BMD (g/cm2): 1.074] [T-Score: -1.4] [Z-Score: -0.7] [BMD Previous: ] [BMD % Change: ] LT Hip Neck: [BMD (g/cm2): 0.815] [T-Score: -2.0] [Z-Score: -1.6] LT Hip Total: [BMD (g/cm2):0.865] [T-Score:-1.6] [Z-Score: -1.2] [BMD Previous: ] [BMD % Change: ] RT Hip Neck: [BMD (g/cm2):0.816] [T-Score:-2.0] [Z-Score:-1.6] RT Hip Total: [BMD (g/cm2):0.902] [T-score:-1.4] [Z-Score:-0.9] [BMD Previous: ] [BMD % Change: ] *Indicates significant change from prior examination based on 95% confidence level. World Health Organization criteria for BMD interpretation classify patients as Normal (T-score at or above -1.0), Osteopenic (T-score between -1.0 and -2.5) or Osteoporotic (T-score at or below -2.5). LIMITATIONS AND MODIFICATION: None. FRACTURE RISK (FRAX SCORE): The ten year probability of (%): Major Osteoporotic Fracture: [ ] Hip Fracture: [ ] IMPRESSION: 1. The bone mineral density is below the expected range for the patient's age. 2. Baseline examination. 3. See below National Osteoporosis Foundation guidelines on when to potentially initiate pharmacologic therapy. Based on the National Osteoporosis Foundation Guidelines, pharmacologic treatment should be initiated in any of the following, unless clinical conditions suggest otherwise: * Any patient with prior fragility fracture of the hip or vertebrae. A spine fracture indicates 5X risk for subsequent spine fracture and 2X risk for subsequent hip fracture. * Osteoporosis (T-score <-2.5). * Postmenopausal women and men age 50 and older with low bone mass/osteopenia (T-score between -1.0 and -2.5) by DXA and 10-year major osteoporotic fracture greater than 20% or a 10-year probability of hip fracture greater than 3%. These fracture risks are supplied above in the FRAX score, if applicable. * Clinician judgment and/or patient preferences may indicate treatment for people with 10-year fracture probabilities above or below these levels. Dictated by: Dictated on workstation # [id number]
== END ==
LOC: RAD 08:02
PROVIDERS: ATTEND Family Medicine
DX: S22.31XD Fracture of one rib, right side, subsequent encounter for fracture with routine healing (principal)
CPT/HCPCS: 77080

== ENCOUNTER → 2018-09-11 | Outpatient (CLI) | payer MEDICARE, MEDICAID ==
[2018-09-11 18:10] LABS: BASOPHILS # (AUTO) 0.1 10^3/uL (0.0-0.1); BASOPHILS % (AUTO) 1 % (0-10); EOSINOPHILS % (AUTO) 9 % (0-10); HEMATOCRIT 38 % (40-54); HEMOGLOBIN 12.6 G/DL (13.3-17.7); LYMPHOCYTES # (AUTO) 3.1 X 10^3 (1.0-4.0); LYMPHOCYTES % (AUTO) 29 % (12-44); MEAN CORPUSCULAR HEMOGLOBIN 29 PG (25-34); MEAN CORPUSCULAR HGB CONC 33 G/DL (32-36); MEAN CORPUSCULAR VOLUME 88 FL (80-99); MEAN PLATELET VOLUME 10.1 FL (7.4-10.4); MONOCYTES % (AUTO) 9 % (0-12); NEUTROPHILS # (AUTO) 5.5 X 10^3 (1.8-7.8); NEUTROPHILS % (AUTO) 51 % (42-75); PLATELET COUNT 396 10^3/uL (130-400); RED BLOOD COUNT 4.34 10^6/uL (4.35-5.85); RED CELL DISTRIBUTION WIDTH 13.5 % (10.0-14.5); WHITE BLOOD COUNT 10.6 10^3/uL (4.3-11.0)
== END ==
LOC: LAB 17:45
PROVIDERS: ATTEND Internal Medicine Endocrinology, Diabetes & Metabolism
DX: E29.1 Testicular hypofunction (principal); E10.9 Type 1 diabetes mellitus without complications
CPT/HCPCS: 36415; 84403; 84443; 85025

== ENCOUNTER → 2018-10-31 | Outpatient (CLI) | payer MEDICARE, MEDICAID ==
[2018-10-31 12:43] LABS: HEMOGLOBIN 13.9 G/DL (13.3-17.7); MEAN PLATELET VOLUME 9.9 FL (7.4-10.4); RED CELL DISTRIBUTION WIDTH 14.2 % (10.0-14.5); WHITE BLOOD COUNT 7.8 10^3/uL (4.3-11.0)
[2018-10-31 12:44] LABS: BILIRUBIN,URINE NEGATIVE (NEGATIVE); CLARITY,URINE CLEAR; COLOR,URINE YELLOW; GLUCOSE, URINE (UA) 4+ (NEGATIVE); KETONES,URINE 1+ (NEGATIVE); LEUKOCYTE ESTERASE ,URINE NEGATIVE (NEGATIVE); NITRITE,URINE NEGATIVE (NEGATIVE); PH,URINE 5 (5-9); PROTEIN,URINE 2+ (NEGATIVE); UROBILINOGEN,URINE NORMAL (NORMAL)
[2018-10-31 12:51] LABS: BACTERIA,URINE NEGATIVE /HPF; RBC,URINE RARE /HPF; SQUAMOUS EPITHELIAL CELL,UR RARE /HPF
[2018-10-31 13:03] LABS: ALBUMIN 4.6 GM/DL (3.2-4.5); CALCIUM 9.4 MG/DL (8.5-10.1); CREATININE SERUM 4.03 MG/DL (0.60-1.30); PHOSPHORUS 5.1 MG/DL (2.3-4.7); POTASSIUM 4.4 MMOL/L (3.6-5.0); URIC ACID 10.2 MG/DL (2.6-7.2)
== END ==
LOC: LAB 12:22
PROVIDERS: ATTEND Internal Medicine Nephrology
DX: E10.22 Type 1 diabetes mellitus with diabetic chronic kidney disease (principal); N18.4 Chronic kidney disease, stage 4 (severe); G40.109 Localization-related (focal) (partial) symptomatic epilepsy and epileptic syndromes with simple partial seizures, not intractable, without status epilepticus; R80.9 Proteinuria, unspecified; N04.9 Nephrotic syndrome with unspecified morphologic changes; N05.0 Unspecified nephritic syndrome with minor glomerular abnormality; E87.2 Acidosis
CPT/HCPCS: 36415; 80069; 81000; 82306; 82570; 83970; 84156; 84550; 85027

== ENCOUNTER → 2019-01-02 | Outpatient (CLI) | payer MEDICAID, MEDICARE ==
[2019-01-02 18:01] LABS: HEMOGLOBIN 13.1 G/DL (13.3-17.7); MEAN PLATELET VOLUME 9.9 FL (7.4-10.4); RED CELL DISTRIBUTION WIDTH 14.2 % (10.0-14.5); WHITE BLOOD COUNT 7.7 10^3/uL (4.3-11.0)
[2019-01-02 18:02] LABS: BILIRUBIN,URINE NEGATIVE (NEGATIVE); CLARITY,URINE CLEAR; COLOR,URINE YELLOW; GLUCOSE, URINE (UA) 3+ (NEGATIVE); KETONES,URINE NEGATIVE (NEGATIVE); LEUKOCYTE ESTERASE ,URINE NEGATIVE (NEGATIVE); NITRITE,URINE NEGATIVE (NEGATIVE); PH,URINE 5 (5-9); PROTEIN,URINE 2+ (NEGATIVE); UROBILINOGEN,URINE NORMAL (NORMAL)
[2019-01-02 18:12] LABS: SQUAMOUS EPITHELIAL CELL,UR RARE /HPF
[2019-01-02 18:27] LABS: ALBUMIN 4.2 GM/DL (3.2-4.5); CALCIUM 9.5 MG/DL (8.5-10.1); CREATININE SERUM 4.33 MG/DL (0.60-1.30); PHOSPHORUS 3.7 MG/DL (2.3-4.7); POTASSIUM 4.2 MMOL/L (3.6-5.0); URIC ACID 8.5 MG/DL (2.6-7.2)
== END ==
LOC: LAB 17:40
PROVIDERS: ATTEND Internal Medicine Nephrology
DX: E10.22 Type 1 diabetes mellitus with diabetic chronic kidney disease (principal); N18.4 Chronic kidney disease, stage 4 (severe); G40.109 Localization-related (focal) (partial) symptomatic epilepsy and epileptic syndromes with simple partial seizures, not intractable, without status epilepticus; R80.9 Proteinuria, unspecified; N04.9 Nephrotic syndrome with unspecified morphologic changes; N05.0 Unspecified nephritic syndrome with minor glomerular abnormality; E87.2 Acidosis; R39.198 Other difficulties with micturition; Z87.448 Personal history of other diseases of urinary system
CPT/HCPCS: 36415; 80069; 81000; 82306; 82570; 83970; 84156; 84550; 85027

== ENCOUNTER → 2019-01-06 | Outpatient (CLI) | payer MEDICARE ==
[2019-01-06 17:58] LABS: HEMOGLOBIN 12.1 G/DL (13.3-17.7); MEAN PLATELET VOLUME 9.6 FL (7.4-10.4); RED CELL DISTRIBUTION WIDTH 14.1 % (10.0-14.5)
== END ==
LOC: LAB 17:34
PROVIDERS: ATTEND Internal Medicine Endocrinology, Diabetes & Metabolism
DX: E10.9 Type 1 diabetes mellitus without complications (principal)
CPT/HCPCS: 36415; 84402; 84403; 84443; 85027

== ENCOUNTER → 2019-05-06 | Outpatient (CLI) | payer MEDICARE ==
[2019-05-06 19:18] LABS: BASOPHILS # (AUTO) 0.1 10^3/uL (0.0-0.1); BASOPHILS % (AUTO) 1 % (0-10); EOSINOPHILS # (AUTO) 0.7 10^3/uL (0.0-0.3); EOSINOPHILS % (AUTO) 9 % (0-10); HEMATOCRIT 37 % (40-54); HEMOGLOBIN 12.5 G/DL (13.3-17.7); LYMPHOCYTES # (AUTO) 2.3 X 10^3 (1.0-4.0); LYMPHOCYTES % (AUTO) 30 % (12-44); MEAN CORPUSCULAR HEMOGLOBIN 30 PG (25-34); MEAN CORPUSCULAR HGB CONC 34 G/DL (32-36); MEAN CORPUSCULAR VOLUME 87 FL (80-99); MEAN PLATELET VOLUME 9.7 FL (7.4-10.4); MONOCYTES # (AUTO) 0.7 X 10^3 (0.0-1.0); MONOCYTES % (AUTO) 8 % (0-12); NEUTROPHILS # (AUTO) 4.1 X 10^3 (1.8-7.8); NEUTROPHILS % (AUTO) 53 % (42-75); PLATELET COUNT 355 10^3/uL (130-400); RED CELL DISTRIBUTION WIDTH 13.8 % (10.0-14.5); WHITE BLOOD COUNT 7.8 10^3/uL (4.3-11.0)
== END ==
LOC: LAB 18:52
PROVIDERS: ATTEND Internal Medicine Endocrinology, Diabetes & Metabolism
DX: E10.9 Type 1 diabetes mellitus without complications (principal); E29.1 Testicular hypofunction
CPT/HCPCS: 36415; 84403; 85025

== ENCOUNTER → 2019-05-13 | Outpatient (CLI) | payer MEDICARE ==
[2019-05-13 18:32] LABS: BASOPHILS # (AUTO) 0.1 10^3/uL (0.0-0.1); BASOPHILS % (AUTO) 1 % (0-10); EOSINOPHILS # (AUTO) 0.7 10^3/uL (0.0-0.3); EOSINOPHILS % (AUTO) 11 % (0-10); HEMATOCRIT 36 % (40-54); LYMPHOCYTES # (AUTO) 1.7 X 10^3 (1.0-4.0); LYMPHOCYTES % (AUTO) 26 % (12-44); MEAN CORPUSCULAR HEMOGLOBIN 30 PG (25-34); MEAN CORPUSCULAR HGB CONC 34 G/DL (32-36); MEAN CORPUSCULAR VOLUME 87 FL (80-99); MEAN PLATELET VOLUME 9.8 FL (7.4-10.4); MONOCYTES # (AUTO) 0.6 X 10^3 (0.0-1.0); MONOCYTES % (AUTO) 9 % (0-12); NEUTROPHILS # (AUTO) 3.6 X 10^3 (1.8-7.8); NEUTROPHILS % (AUTO) 54 % (42-75); PLATELET COUNT 336 10^3/uL (130-400); RED CELL DISTRIBUTION WIDTH 13.4 % (10.0-14.5); WHITE BLOOD COUNT 6.7 10^3/uL (4.3-11.0)
[2019-05-13 18:35] LABS: BILIRUBIN,URINE NEGATIVE (NEGATIVE); CLARITY,URINE CLEAR; COLOR,URINE YELLOW; GLUCOSE, URINE (UA) 1+ (NEGATIVE); KETONES,URINE NEGATIVE (NEGATIVE); LEUKOCYTE ESTERASE ,URINE NEGATIVE (NEGATIVE); NITRITE,URINE NEGATIVE (NEGATIVE); PH,URINE 7 (5-9); PROTEIN,URINE 1+ (NEGATIVE); UROBILINOGEN,URINE NORMAL (NORMAL)
[2019-05-13 18:42] LABS: BACTERIA,URINE TRACE /HPF; SQUAMOUS EPITHELIAL CELL,UR RARE /HPF; WBC,URINE RARE /HPF
[2019-05-13 18:43] LABS: URINE OTHER MOD SPERM /HPF
[2019-05-13 18:56] LABS: CALCIUM 9.4 MG/DL (8.5-10.1); CREATININE SERUM 4.48 MG/DL (0.60-1.30); PHOSPHORUS 4.5 MG/DL (2.3-4.7); POTASSIUM 4.4 MMOL/L (3.6-5.0); URIC ACID 8.2 MG/DL (2.6-7.2)
== END ==
LOC: LAB 18:06
PROVIDERS: ATTEND Internal Medicine Nephrology
DX: E10.22 Type 1 diabetes mellitus with diabetic chronic kidney disease (principal); N18.4 Chronic kidney disease, stage 4 (severe); G40.109 Localization-related (focal) (partial) symptomatic epilepsy and epileptic syndromes with simple partial seizures, not intractable, without status epilepticus; G40.909 Epilepsy, unspecified, not intractable, without status epilepticus; N04.9 Nephrotic syndrome with unspecified morphologic changes; N05.0 Unspecified nephritic syndrome with minor glomerular abnormality; R80.9 Proteinuria, unspecified; R39.198 Other difficulties with micturition; Z87.448 Personal history of other diseases of urinary system
CPT/HCPCS: 36415; 80069; 81000; 82306; 82570; 83970; 84156; 84550; 85025

== ENCOUNTER → 2019-09-08 | Outpatient (CLI) | payer MEDICARE ==
[2019-09-08 18:03] LABS: BASOPHILS # (AUTO) 0.1 10^3/uL (0.0-0.1); BASOPHILS % (AUTO) 1 % (0-10); EOSINOPHILS # (AUTO) 1.5 10^3/uL (0.0-0.3); EOSINOPHILS % (AUTO) 16 % (0-10); HEMATOCRIT 38 % (40-54); HEMOGLOBIN 12.7 G/DL (13.3-17.7); LYMPHOCYTES # (AUTO) 2.7 X 10^3 (1.0-4.0); LYMPHOCYTES % (AUTO) 29 % (12-44); MEAN CORPUSCULAR HEMOGLOBIN 29 PG (25-34); MEAN CORPUSCULAR HGB CONC 34 G/DL (32-36); MEAN CORPUSCULAR VOLUME 87 FL (80-99); MEAN PLATELET VOLUME 9.5 FL (7.4-10.4); MONOCYTES # (AUTO) 0.8 X 10^3 (0.0-1.0); MONOCYTES % (AUTO) 9 % (0-12); NEUTROPHILS # (AUTO) 4.3 X 10^3 (1.8-7.8); NEUTROPHILS % (AUTO) 45 % (42-75); PLATELET COUNT 397 10^3/uL (130-400); RED CELL DISTRIBUTION WIDTH 13.8 % (10.0-14.5); WHITE BLOOD COUNT 9.5 10^3/uL (4.3-11.0)
[2019-09-08 18:21] LABS: CHOLESTEROL 216 MG/DL (< 200); HDL CHOLESTEROL 56 MG/DL (40-60); TRIGLYCERIDES 339 MG/DL (<150); VLDL CHOLESTEROL 68 MG/DL (5-40)
[2019-09-08 18:29] LABS: BASOPHILS % (MANUAL) 1 %; EOSINOPHILS % (MANUAL) 17 %; LYMPHOCYTES % (MANUAL) 32 %; MONOCYTES % (MANUAL) 6 %; NEUTROPHILS % (MANUAL) 44 %; RBC MORPH NORMAL
== END ==
LOC: LAB 17:25
PROVIDERS: ATTEND Internal Medicine Endocrinology, Diabetes & Metabolism
DX: E10.9 Type 1 diabetes mellitus without complications (principal); E29.1 Testicular hypofunction
CPT/HCPCS: 36415; 80061; 84403; 85007; 85027

== ENCOUNTER → 2019-09-08 | Outpatient (CLI) | payer MEDICARE ==
[2019-09-08 18:01] LABS: HEMOGLOBIN 12.7 G/DL (13.3-17.7); MEAN PLATELET VOLUME 9.5 FL (7.4-10.4); RED CELL DISTRIBUTION WIDTH 13.8 % (10.0-14.5); WHITE BLOOD COUNT 9.5 10^3/uL (4.3-11.0)
[2019-09-08 18:07] LABS: BILIRUBIN,URINE NEGATIVE (NEGATIVE); CLARITY,URINE CLEAR; COLOR,URINE YELLOW; GLUCOSE, URINE (UA) 2+ (NEGATIVE); KETONES,URINE NEGATIVE (NEGATIVE); LEUKOCYTE ESTERASE ,URINE NEGATIVE (NEGATIVE); NITRITE,URINE NEGATIVE (NEGATIVE); PH,URINE 6.5 (5-9); PROTEIN,URINE TRACE (NEGATIVE)
[2019-09-08 18:16] LABS: BACTERIA,URINE NEGATIVE /HPF; SQUAMOUS EPITHELIAL CELL,UR RARE /HPF
[2019-09-08 18:21] LABS: ALBUMIN 4.4 GM/DL (3.2-4.5); CALCIUM 9.2 MG/DL (8.5-10.1); CREATININE SERUM 4.35 MG/DL (0.60-1.30); PHOSPHORUS 3.9 MG/DL (2.3-4.7); POTASSIUM 3.9 MMOL/L (3.6-5.0); URIC ACID 7.2 MG/DL (2.6-7.2)
== END ==
LOC: LAB 17:29
PROVIDERS: ATTEND Internal Medicine Nephrology
DX: E10.22 Type 1 diabetes mellitus with diabetic chronic kidney disease (principal); G40.109 Localization-related (focal) (partial) symptomatic epilepsy and epileptic syndromes with simple partial seizures, not intractable, without status epilepticus; N18.4 Chronic kidney disease, stage 4 (severe); G40.909 Epilepsy, unspecified, not intractable, without status epilepticus; N04.9 Nephrotic syndrome with unspecified morphologic changes; N05.0 Unspecified nephritic syndrome with minor glomerular abnormality; R39.198 Other difficulties with micturition
CPT/HCPCS: 80069; 81000; 82306; 82570; 83970; 84156; 84550

== ENCOUNTER → 2019-12-16 | Outpatient (CLI) | payer MEDICARE, MEDICAID ==
[~2019-12-16] MED LIST changes: -HYDR-3812 PO
[2019-12-16 17:49] LABS: BILIRUBIN,URINE NEGATIVE (NEGATIVE); CLARITY,URINE CLEAR; COLOR,URINE YELLOW; GLUCOSE, URINE (UA) 2+ (NEGATIVE); KETONES,URINE NEGATIVE (NEGATIVE); LEUKOCYTE ESTERASE ,URINE NEGATIVE (NEGATIVE); NITRITE,URINE NEGATIVE (NEGATIVE); PH,URINE 6.5 (5-9); PROTEIN,URINE NEGATIVE (NEGATIVE)
[2019-12-16 17:50] LABS: HEMOGLOBIN 11.6 G/DL (13.3-17.7); MEAN PLATELET VOLUME 9.6 FL (7.4-10.4); RED CELL DISTRIBUTION WIDTH 14.7 % (10.0-14.5); WHITE BLOOD COUNT 8.1 10^3/uL (4.3-11.0)
[2019-12-16 18:02] LABS: BACTERIA,URINE NEGATIVE /HPF
[2019-12-16 18:11] LABS: ALBUMIN 4.4 GM/DL (3.2-4.5); CALCIUM 8.6 MG/DL (8.5-10.1); CREATININE SERUM 4.22 MG/DL (0.60-1.30); PHOSPHORUS 5.6 MG/DL (2.3-4.7); POTASSIUM 4.1 MMOL/L (3.6-5.0); URIC ACID 8.9 MG/DL (2.6-7.2)
== END ==
LOC: LAB 17:22
PROVIDERS: ATTEND Internal Medicine Nephrology
DX: E10.22 Type 1 diabetes mellitus with diabetic chronic kidney disease (principal); N18.4 Chronic kidney disease, stage 4 (severe); G40.109 Localization-related (focal) (partial) symptomatic epilepsy and epileptic syndromes with simple partial seizures, not intractable, without status epilepticus; R80.9 Proteinuria, unspecified; N04.9 Nephrotic syndrome with unspecified morphologic changes; N05.0 Unspecified nephritic syndrome with minor glomerular abnormality; E87.2 Acidosis; R39.198 Other difficulties with micturition; Z87.448 Personal history of other diseases of urinary system
CPT/HCPCS: 36415; 80069; 81000; 82306; 82570; 83970; 84156; 84550; 85027

== ENCOUNTER → 2020-03-01 | Outpatient (CLI) | payer MEDICARE, MEDICAID ==
[2020-03-01 18:01] LABS: BASOPHILS # (AUTO) 0.1 10^3/uL (0.0-0.1); BASOPHILS % (AUTO) 1 % (0-10); EOSINOPHILS % (AUTO) 11 % (0-10); HEMATOCRIT 36 % (40-54); HEMOGLOBIN 11.7 G/DL (13.3-17.7); LYMPHOCYTES # (AUTO) 2.1 X 10^3 (1.0-4.0); LYMPHOCYTES % (AUTO) 22 % (12-44); MEAN CORPUSCULAR HEMOGLOBIN 30 PG (25-34); MEAN CORPUSCULAR HGB CONC 33 G/DL (32-36); MEAN CORPUSCULAR VOLUME 91 FL (80-99); MONOCYTES # (AUTO) 0.8 X 10^3 (0.0-1.0); MONOCYTES % (AUTO) 9 % (0-12); NEUTROPHILS # (AUTO) 5.6 X 10^3 (1.8-7.8); NEUTROPHILS % (AUTO) 58 % (42-75); PLATELET COUNT 304 10^3/uL (130-400); RED CELL DISTRIBUTION WIDTH 15.3 % (10.0-14.5); WHITE BLOOD COUNT 9.6 10^3/uL (4.3-11.0)
== END ==
LOC: LAB 17:42
PROVIDERS: ATTEND Internal Medicine Endocrinology, Diabetes & Metabolism
DX: E29.1 Testicular hypofunction (principal); E10.9 Type 1 diabetes mellitus without complications
CPT/HCPCS: 36415; 84403; 85025

== ENCOUNTER 2020-03-03 13:23 | Emergency (ER) | payer MEDICARE, MEDICAID ==
[~2020-03-03] VITALS: Ht 154.9 cm; Wt 50.8 kg
--- NOTE | 2020-03-03 13:51 | ED Lower Extremity ---
General Stated Complaint: TOE INJ Source: patient Exam Limitations: no limitations History of Present Illness Date Seen by Provider: Mar 03, 2020 Time Seen by Provider: 13:51 Initial Comments 29-year-old male presents with right toe pain. He reports that he hit his hurt it about a month ago on a refrigerator and that he was doing [employer] couple days ago and re-hurt it. He comes in today because he is taking Tylenol so that doesn't help. He wants to have it evaluated for fracture. He reports no other injuries. Allergies and Home Medications Allergies Coded Allergies: Penicillins (Verified Allergy, Unknown, 03/03/20) levetiracetam (Verified Allergy, Unknown, 11/14/17) promethazine (Verified Allergy, Unknown, 03/03/20) Home Medications Atorvastatin Calcium 10 Mg Tablet, 1 EACH PO DAILY, (Reported) Chlorothiazide 500 Mg Tablet, 500 MG PO DAILY, (Reported) Cyclosporine, Modified 100 Mg Capsule, 125 MG PO BID, (Reported) Fluticasone Propionate 50 Mcg/16 G [place], 50 MCG NA DAILY, (Reported) Hydrocodone Bit/Acetaminophen 1 Tab Tab, 1 TAB PO Q4H PRN for pain Prescribed by: MAYELA LOPEZ on 11/14/17 2230 Hydrocodone Bit/Acetaminophen 1 Each Tablet, 1 EACH PO Q4H PRN for PAIN-MODERATE TO SEVERE Prescribed by: SIMONE MADISON on 04/23/18 1352 Lamotrigine 100 Mg Tablet, 125 MG PO BID, (Reported) Lisinopril 40 Mg Tablet, 1 EACH PO DAILY, (Reported) Multivitamins 1 Tab Tablet, 1 TAB PO DAILY, (Reported) [place] 3 Polyunsat Fatty Acids 1,000 Mg Cap, 900 MG PO DAILY, (Reported) Ondansetron 4 Mg Tab.rapdis, 4 MG SL Q4H PRN for NAUSEA/VOMITING-1ST LINE Prescribed by: SIMONE MADISON on 04/23/18 1408 Prednisone 10 Mg Tab, 10 MG PO QOD, (Reported) Sawpalmtofrtxt/Zinc Picolinate 1 Each Capsule, 1 EACH PO BID, (Reported) Sertraline Hcl 50 Mg Tablet, 50 MG PO DAILY, (Reported) Trazodone Hcl 150 Mg Tablet, 100 MG PO PRN, (Reported) Patient Home Medication List Home Medication List Reviewed: Yes Review of Systems Constitutional: no symptoms reported Respiratory: no symptoms reported Cardiovascular: no symptoms reported Gastrointestinal: no symptoms reported Musculoskeletal: see HPI Past Kgjpzld-Okikgp-Uunhuy Hx Past Med/Social Hx: Reviewed Nursing Past Med/Soc Hx Patient Social History Drug of Choice: POT Type Used: Cigarettes 2nd Hand Smoke Exposure: No Recent Foreign Travel: No Contact w/Someone Who Travel: No Recent Hopitalizations: No ( renal failure, need for transplant) Immunizations Up To Date PED Vaccines UTD: Yes Past Medical History Surgeries: Yes (5 groshong placements; kidney bx's.) Respiratory: Yes Pneumonia Cardiac: Yes Hypertension Neurological: Yes Headaches /Migraines, Seizure Disorder Reproductive Disorders: No Sexually Transmitted Disease: No Genitourinary: Yes Renal Failure Gastrointestinal: Yes Musculoskeletal: No Endocrine: Yes Diabetes, Insulin dep HEENT: No Cancer: No Psychosocial: Yes Suicide Attempts Integumentary: No Blood Disorders: No Family Medical History No Pertinent Family Hx Physical Exam Vital Signs Vital Signs - First Documented 03/03/20 13:43 Temp 36.3 Pulse 72 Resp 20 B/P (MAP) 128/88 (101) Pulse Ox 99 Capillary Refill : Height, Weight, BMI Height: 5'1.00" Weight: 132lbs. oz. 59.438216rs; BMI Method:Stated General Appearance: WD/WN, no apparent distress Neck: supple Cardiovascular: regular rate, rhythm Respiratory: no respiratory distress, no accessory muscle use Gastrointestinal: non tender, soft Hips: bilateral hip non-tender Legs: bilateral leg non-tender Knees: bilateral knee non-tender Ankles: bilateral ankle non-tender Feet: bilateral foot other (tenderness to the right great toe, no obvious swelling or deformity) Neurologic/Tendon: normal sensation, normal motor functions, normal tendon functions Neurologic/Psychiatric: alert, normal mood/affect, oriented x 3 Skin: normal color, warm/dry Progress/Results/Core Measures Results/Orders My Orders Orders - CLARK DONOHUE DO Toe(S) (03/03/20 13:53) Vital Signs/I&O 03/03/20 03/03/20 13:43 15:05 Temp 36.3 36.3 Pulse 72 72 Resp 20 20 B/P (MAP) 128/88 (101) 128/88 (101) Pulse Ox 99 99 Diagnostic Imaging Diagonstic Imaging: Xray Comments [facility]. [place], [place] NAME: [facility] REC#: [id number] PT STATUS: REG ER : 1990 PHYSICIAN: CLARK DONOHUE DO ADMIT DATE: 03/03/20/ER Draft Date of Exam:03/03/20 TOE(S) INDICATION: Stubbed right big toe one month ago on a freezer. Reinjury more recently. Increasing pain. TECHNIQUE: Three views, right toes. CORRELATION STUDY: None. FINDINGS: There is no acute fracture of the toes. Alignment is anatomic. Mild cystic change at the first MTP joint is noted with joint space otherwise maintained. No significant marginal osteophyte formation. There is noted prominent-severity vascular calcification in the soft tissues. IMPRESSION: 1. Negative for acute fracture of the toes of the right foot. Cystic change is noted at the first MTP joint. 2. There is noted prominent vascular calcification, particularly given the patient's age. Question for potential etiologies such as is there a history of diabetes or renal disease. Departure Impression Primary Impression: Unspecified sprain of right great toe, initial encounter Disposition: HOME, SELF-CARE Condition: Stable Departure-Patient Inst. Referrals: JORGE L TYLER MD (PCP/Family) Primary Care Physician Patient Instructions: Toe Injury (DC), Foot Sprain (DC) Add. Discharge Instructions: Emergency department focuses on treating and ruling out life-threatening diseases. Whenever possible, a diagnosis is given. However, most patients are given an impression based on their history, physical exam, and workup during your brief time in the ER. Information about probable diagnosis and other educational material has been provided. Please take the time to read and understand this information. It is very important that you follow up with a physician as discussed during the visit today. Failure to adhere to your follow-up instructions may lead to severe disability, injury, or so please make sure to keep your appointments or obtain one as requested. Please keep in mind the emergency department is not designed to your primary care or "family doctor" and nonurgent issues are best evaluated by an outpatient physician CLARK DONOHUE DO Mar 03, 2020 13:51
--- NOTE | 2020-03-03 14:36 | Diagnostic Imaging Report ---
INDICATION: Stubbed right big toe one month ago on a freezer. Reinjury more recently. Increasing pain. TECHNIQUE: Three views, right toes. CORRELATION STUDY: None. FINDINGS: There is no acute fracture of the toes. Alignment is anatomic. Mild cystic change at the first MTP joint is noted with joint space otherwise maintained. No significant marginal osteophyte formation. There is noted prominent-severity vascular calcification in the soft tissues. IMPRESSION: 1. Negative for acute fracture of the toes of the right foot. Cystic change is noted at the first MTP joint. 2. There is noted prominent vascular calcification, particularly given the patient's age. Question for potential etiologies such as is there a history of diabetes or renal disease. Dictated by: Dictated on workstation # [id number]
[2020-03-03 15:05] VITALS: BP 128/88
--- OUTSIDE RECORDS SUMMARY | 2020-03-03 17:06 | XMS REPORT ---
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 Active 356088294 Problem Cough R05 Active 46861349 Problem Common cold virus J00 Active 82 935643 Problem Intrinsic eczema L20.84 Active 240 06743 Problem 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 Active 92697362 Problem Nonintractable epilepsy with out status epilepticus, unspecified epilepsy type G40.909 Active 288441055 Problem Mild episode of recurrent major depressive disorder F33.0 Active 653586550 ALLERGIES No Information ENCOUNTERS Encounter Location Date Diagnosis [facility] [address] [facility] [id number] [address] [place] [phone] Jun, [facility] [address] [facility] [id number] [address] [place] [address] May, [facility] [address] [facility] [id number] [address] [place] [address] Apr, [facility] [address] [facility] [id number] [address] [place] [address] Apr, [facility] [address] [facility] [id number] [address] [place] [address] Apr, Nausea R11.0 ; Insect bite ( nonvenomous) of right hand, initial encounter S60.561A and Insect bite, initial encounter W57.XXXA [facility] [address] [facility] [id number] [address] [place] [address] Mar, [facility] [address] [facility] [id number] [address] [place] [phone] January, [facility] [address] [facility] [id number] [address] [place] [address] January, [facility] [address] [place] [id number] [address] [place] [phone] January, [facility] [address] [facility] [id number] [address] [place] [phone] January, Cough R05 and Common cold vi sonia J00 [facility] [address] [place] [id number] [address] [place] [phone] January, [facility] [address] [place] [id number] [address] [place] [id number] Dec, Encounter for dental examina tion Z01.20 [facility] [id number] [place] [address] Dec, [facility] [address] [place] [id number] [address] [place] [phone] Dec, 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, initial encounter S06.9X9A and Nonintractable epilepsy without status epilepticus, unspecified epilepsy type G40.909 [facility] [address] [place] [id number] [address] [place] [address] Dec, Fatigue, unspecified type R5 3.83 ; 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 and Mild episode of recurrent major depressive disorder F33.0 [facility] [address] [address] Oct, [facility] [address] [address] Oct, [facility] [address] [address] Aug, [facility] [address] [address] Jul, [facility] [address] [address] Jul, History of renal insufficien cy syndrome Z87.448 [facility] [address] [address] Jun, [facility] [address] [address] May, [facility] [address] [address] May, History of renal insufficien cy syndrome Z87.448 [facility] [address] [address] May, [facility] [address] [address] Mar, [facility] [address] [address] Mar, Intrinsic eczema L20.84 [facility] [address] [place] [id number] [address] [place] [phone] Mar, Type 1 diabetes mellitus wit hout complication E10.9 [place] [address] [place] [address] Feb, Type 1 diabetes mellitus wit hout complication E10.9 ; Partial symptomatic epilepsy with simple partial seizures, not intractable, without status epilepticus G40.109 ; History of renal insufficiency syndrome Z87.448 and 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 [place] [address] [place] [id number] [address] [place] [address] January, Dysthymic disorder F34.1 [place] [address] [place] [id number] [address] [place] [address] January, Dysthymic disorder F34.1 [place] [address] [place] [id number] [address] [place] [address] January, Dysthymic disorder F34.1 IMMUNIZATIONS No Known Immunizations SOCIAL HISTORY Never Assessed REASON FOR VISIT medication PLAN OF CARE VITAL SIGNS MEDICATIONS Unknown Medications RESULTS No Results PROCEDURES No Known procedures INSTRUCTIONS MEDICATIONS ADMINISTERED No Known Medications MEDICAL (GENERAL) HISTORY Type Description Date Medical History nephrotic syndrome Medical History diabetes Medical History epilepsy Medical History HTN Medical History low testosterone Surgical History kidney biopsy Hospitalization History Concussion- hospitalized for 1 month 2014 (?)
--- OUTSIDE RECORDS SUMMARY | 2020-03-03 17:06 | XMS REPORT ---
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 Active 749568982 Problem Cough R05 Active 46219603 Problem Common cold virus J00 Active 82 180339 Problem Intrinsic eczema L20.84 Active 240 37646 Problem 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 Active 05792837 Problem Nonintractable epilepsy with out status epilepticus, unspecified epilepsy type G40.909 Active 256051102 Problem Mild episode of recurrent major depressive disorder F33.0 Active 505298662 ALLERGIES Substance Reaction Event Type Date Status Phenergan anaphylaxis Drug Allergy May, Active Penicillin V Potassium hives Drug Allergy May, Activ e Keppra Unknown Drug Allergy May, Active ENCOUNTERS Encounter Location Date Diagnosis [facility] [address] [facility] [id number] [address] [place] [phone] Jun, [facility] [address] [facility] [id number] [address] [place] [address] May, Type 1 diabetes mellitus wit h diabetic chronic kidney disease E10.22 ; Chronic kidney disease, stage 4 (severe) N18.4 ; 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 ; Nonintractable epilepsy without status epilepticus, unspecified epilepsy type G40.909 and Elevated parathyroid hormone E34.9 [facility] [address] [facility] [id number] [address] [place] [address] Apr, [facility] [address] [facility] [id number] [address] [place] [address] Apr, [facility] [address] [facility] [id number] [address] [place] [address] Apr, Nausea R11.0 ; Insect bite ( nonvenomous) of right hand, initial encounter S60.561A and Insect bite, initial encounter W57.XXXA [facility] [address] [facility] [id number] [address] [place] [address] Mar, [facility] [address] [facility] [id number] [address] [place] [address] January, [facility] [address] [facility] [id number] [address] [place] [address] January, [facility] [address] [facility] [id number] [address] [place] [address] January, [facility] [address] [facility] [id number] [address] [place] [address] January, Cough R05 and Common cold vi sonia J00 [facility] [address] [facility] [id number] [address] [place] [address] January, [facility] [address] [facility] [id number] [address] [place] [id number] Dec, Encounter for dental examina tion Z01.20 [facility] [address] [id number] [place] [address] Dec, [facility] [address] [facility] [id number] [address] [place] [address] Dec, 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, initial encounter S06.9X9A and Nonintractable epilepsy without status epilepticus, unspecified epilepsy type G40.909 [facility] [address] [facility] [id number] [address] [place] [address] 03 Apr, 2018 Fatigue, unspecified type R5 3.83 ; 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 ; Chronic kidney disease, stage 4 (severe) N18.4 and Nephrotic syndrome N04.9 [facility] [address] [place] [id number] [address] [place] [address] Dec, [facility] [address] [place] [id number] [address] [place] [address] Nov, [facility] [address] [place] [id number] [address] [place] [address] Nov, Dermatitis L30.9 [facility] [address] [place] [id number] [place] [address] Nov, Chronic kidney disease, stag e 4 (severe) N18.4 ; 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 and Mild episode of recurrent major depressive disorder F33.0 [place] [address] [address] Oct, [facility] [address] [place] [id number] [address] [place] [address] Oct, [facility] [address] [address] Aug, [facility] [address] [place] [id number] [address] [place] [address] Jul, [facility] [address] [place] [id number] [address] [place] [address] Jul, History of renal insufficien cy syndrome Z87.448 [facility] [address] [place] [id number] [address] [place] [address] Jun, [facility] [address] [place] [id number] [address] [place] [address] May, [facility] [address] [place] [id number] [address] [place] [address] May, History of renal insufficien cy syndrome Z87.448 [facility] [address] [place] [id number] [address] [place] [address] May, [place] [address] [facility] [id number] [address] [place] [address] Mar, [place] [address] [place] [id number] [address] [place] [address] Mar, Intrinsic eczema L20.84 [place] [address] [place] [id number] [address] [place] [address] Mar, Type 1 diabetes mellitus wit hout complication E10.9 [place] [address] [place] [id number] [address] [place] [address] Feb, Type 1 diabetes mellitus wit hout complication E10.9 ; Partial symptomatic epilepsy with simple partial seizures, not intractable, without status epilepticus G40.109 ; History of renal insufficiency syndrome Z87.448 and 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 [place] [address] [place] [address] January, Dysthymic disorder F34.1 [place] [address] [place] [id number] [address] [place] [address] January, Dysthymic disorder F34.1 [place] [address] [place] [id number] [address] [place] [address] January, Dysthymic disorder F34.1 IMMUNIZATIONS No Known Immunizations SOCIAL HISTORY Never Assessed REASON FOR VISIT [facility]- PTH levels high, increased seizure activity, dehydration- 04/23 and 04/30/18 CORINNE Webb PLAN OF CARE Activity Details Follow Up 3 Months with Li baptiste: VITAL SIGNS Height 62 in 2018-05-08 Weight 134.1 lbs 2018-05-08 Temperature 98.2 degrees Fahrenheit 2018-05-08 Heart Rate 65 bpm 2018-05-08 Respiratory Rate 18 2018-05-08 BMI 24.52 kg/m2 2018-05-08 Blood pressure systolic 144 mmHg 2018-05-08 Blood pressure diastolic 104 mmHg 2018-05-08 MEDICATIONS Medication Instructions Dosage Frequency Start Date End Date Duration S tatus Lasix 40 mg Orally PRN 1 tablet Active Klonopin 1 MG Orally every night at bedtime 1 capsule Dec, Active Testosterone Cypionate 200 MG/ML Intramuscular every 2 weeks 1 ml May, Active Lamictal 200 mg Orally Twice a day 1 tablet 12h Active PredniSONE 5 mg Orally Once a day 1 tablet every other day alternating w/ 1.5 tablets every other day 24h Acti ve Lisinopril 10 mg Orally Once a day 1 tablet 24h Active Zonisamide 100 MG Orally every night at bedtime 2 capsules Active Lancets - Active Flonase 50 MCG/ACT Nasally twice a day 1 spray in each nostril 12h January, 30 day(s) Active Zoloft 50 mg Orally Once a day 1/2 tab x 1 week then 1 tab daily 24 h Nov, 30 day(s) Active Propranolol HCl ER 60 MG Orally Once a day 1 capsule 24h Active Amlodipine Besylate 5 MG Orally Once a day 1 tablet 24h Active Triamcinolone Acetonide 0.025 % Externally Twice a day for u p to two weeks 1 application to affected area Mar, Active Test strips Active Percocet 10-325 MG Orally every 6 hrs 1 tablet as needed 6h Active NovoLog 100 UNIT/ML Subcutaneous, via pump daily 50 units 24h Active Sodium Bicarbonate 650 MG Orally 2 times a day 2 tablets 12h Active RESULTS No Results PROCEDURES Procedure Date Ordered Result Body Site [facility] VISIT ESTABLISHED PATIENT May 08, 2018 INSTRUCTIONS MEDICATIONS ADMINISTERED No Known Medications MEDICAL (GENERAL) HISTORY Type Description Date Medical History nephrotic syndrome Medical History diabetes Medical History epilepsy Medical History HTN Medical History low testosterone Surgical History kidney biopsy Hospitalization History Concussion- hospitalized for 1 month 2014 (?)
--- OUTSIDE RECORDS SUMMARY | 2020-03-03 17:06 | XMS REPORT ---
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 Active 21994329864175 Problem Chronic kidney disease, stage 4 (severe) N18.4 Active 988591239 Problem Growth hormone deficiency E23.0 Acti ve 172727315 Problem 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 Active 802680127 Problem Cough R05 Active 67433848 Problem Common cold virus J00 Active 82 668335 Problem Intrinsic eczema L20.84 Active 240 70808 Problem 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 Active 02426651 Problem Nonintractable epilepsy with out status epilepticus, unspecified epilepsy type G40.909 Active 430385882 Problem Mild episode of recurrent major depressive disorder F33.0 Active 960459881 ALLERGIES No Information ENCOUNTERS Encounter Location Date Diagnosis [facility] [address] [facility] [id number] [address] [place] [address] Jun, [facility] [address] [facility] [id number] [address] [place] [address] 05 May, 2018 Type 1 diabetes mellitus wit h diabetic chronic kidney disease E10.22 ; Chronic kidney disease, stage 4 (severe) N18.4 ; 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 ; Nonintractable epilepsy without status epilepticus, unspecified epilepsy type G40.909 and Elevated parathyroid hormone E34.9 [facility] [address] [facility] [id number] [address] [place] [address] Apr, [facility] [address] [facility] [id number] [address] [place] [address] Apr, [facility] [address] [place] [id number] [address] [place] [address] Apr, Nausea R11.0 ; Insect bite ( nonvenomous) of right hand, initial encounter S60.561A and Insect bite, initial encounter W57.XXXA [facility] [address] [place] [id number] [address] [place] [address] Mar, [facility] [address] [place] [id number] [address] [place] [address] January, [facility] [address] [facility] [id number] [address] [place] [address] January, [facility] [address] [place] [id number] [place] [address] January, [facility] [address] [place] [id number] [place] [address] January, Cough R05 and Common cold vi sonia J00 [facility] [address] [place] [id number] [address] [place] [address] January, [facility] [address] [place] [id number] [address] [place] [id number] Dec, Encounter for dental examina tion Z01.20 [facility] [address] [id number] [address] [address] Dec, [facility] [address] [place] [id number] [address] [place] [address] Dec, 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, initial encounter S06.9X9A and Nonintractable epilepsy without status epilepticus, unspecified epilepsy type G40.909 [facility] [address] [place] [id number] [address] [place] [address] Dec, Fatigue, unspecified type R5 3.83 ; 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 ; Chronic kidney disease, stage 4 (severe) N18.4 and Nephrotic syndrome N04.9 [facility] [address] [facility] [id number] [address] [place] [address] Dec, [facility] [address] [facility] [id number] [address] [place] [phone] Nov, [facility] [address] [facility] [id number] [address] [place] [address] Nov, Dermatitis L30.9 [facility] [address] [facility] [id number] [address] [place] [address] Nov, Chronic kidney disease, stag e 4 (severe) N18.4 ; 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 and Mild episode of recurrent major depressive disorder F33.0 [facility] [address] [facility] [id number] [address] [place] [address] Oct, [facility] [address] [place] [id number] [address] [place] [address] Oct, [facility] [address] [place] [id number] [address] [place] [address] Aug, [facility] [address] [place] [id number] [address] [place] [address] Jul, [facility] [address] [place] [id number] [address] [place] [address] Jul, History of renal insufficien cy syndrome Z87.448 [facility] [address] [place] [id number] [address] [place] [address] Jun, [facility] [address] [facility] [id number] [address] [place] [address] May, [facility] [address] [place] [id number] [address] [place] [address] May, History of renal insufficien cy syndrome Z87.448 [facility] [address] [place] [id number] [address] [place] [address] May, [facility] [address] [place] [id number] [address] [place] [address] Mar, [place] [address] [place] [id number] [address] [place] [address] Mar, Intrinsic eczema L20.84 [place] [address] [place] [id number] [address] [place] [address] Mar, Type 1 diabetes mellitus wit hout complication E10.9 [place] [address] [address] Feb, Type 1 diabetes mellitus wit hout complication E10.9 ; Partial symptomatic epilepsy with simple partial seizures, not intractable, without status epilepticus G40.109 ; History of renal insufficiency syndrome Z87.448 and 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 [place] [address] [place] [id number] [address] [place] [address] January, Dysthymic disorder F34.1 [place] [address] [place] [id number] [address] [place] [address] January, Dysthymic disorder F34.1 [place] [address] [place] [id number] [address] [place] [address] January, Dysthymic disorder F34.1 IMMUNIZATIONS No Known Immunizations SOCIAL HISTORY Never Assessed REASON FOR VISIT Refill Request PLAN OF CARE VITAL SIGNS MEDICATIONS Medication Instructions Dosage Frequency Start Date End Date Duration S tatus Lisinopril 10 mg Orally Once a day 1 tablet 24h Active RESULTS No Results PROCEDURES No Known procedures INSTRUCTIONS MEDICATIONS ADMINISTERED No Known Medications MEDICAL (GENERAL) HISTORY Type Description Date Medical History nephrotic syndrome Medical History diabetes Medical History epilepsy Medical History HTN Medical History low testosterone Surgical History kidney biopsy Hospitalization History Concussion- hospitalized for 1 month 2014 (?)
--- OUTSIDE RECORDS SUMMARY | 2020-03-03 17:06 | XMS REPORT ---
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 Active 19344040825980 Problem Chronic kidney disease, stage 4 (severe) N18.4 Active 458371581 Problem Growth hormone deficiency E23.0 Acti ve 092275837 Problem 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 Active 229809182 Problem Cough R05 Active 19306829 Problem Common cold virus J00 Active 82 572867 Problem Intrinsic eczema L20.84 Active 240 20445 Problem 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 Active 84754514 Problem Nonintractable epilepsy with out status epilepticus, unspecified epilepsy type G40.909 Active 018471394 Problem Mild episode of recurrent major depressive disorder F33.0 Active 087438178 ALLERGIES Substance Reaction Event Type Date Status Phenergan anaphylaxis Drug Allergy Apr, Active Penicillin V Potassium hives Drug Allergy Apr, Activ e Keppra Unknown Drug Allergy Apr, Active ENCOUNTERS Encounter Location Date Diagnosis [id number] [place] [id number] [place] [phone] Jun, [place] [address] [place] [id number] [place] [phone] May, Type 1 diabetes mellitus wit h diabetic chronic kidney disease E10.22 ; Chronic kidney disease, stage 4 (severe) N18.4 ; 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 [id number] [address] [place] [phone] Apr, [facility] [address] [facility] [id number] [address] [place] [phone] Apr, Nausea R11.0 ; Insect bite ( nonvenomous) of right hand, initial encounter S60.561A and Insect bite, initial encounter W57.XXXA [facility] [address] [facility] [id number] [address] [place] [phone] Mar, [facility] [address] [facility] [facility] [id number] [address] [place] [phone] January, [facility] [address] [facility] [id number] [address] [place] [phone] January, [facility] [address] [facility] [id number] [address] [place] [phone] January, [facility] [address] [facility] [id number] [address] [place] [phone] January, Cough R05 and Common cold vi sonia J00 [facility] [address] [facility] [id number] [address] [place] [phone] January, [facility] [address] [facility] [id number] [address] [place] [id number] Dec, Encounter for dental examina tion Z01.20 [facility] [address] [id number] [place], [place] [address] Dec, [facility] [address] 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 ; Chronic kidney disease, stage 4 (severe) N18.4 and Nephrotic syndrome N04.9 [facility] [address] [place] [id number] [place] [phone] Dec, [facility] [address] [place] [id number] [place] [phone] Nov, [facility] [address] [address] Nov, Dermatitis L30.9 [facility] [address] [address] Nov, Chronic kidney disease, stag e 4 (severe) N18.4 ; 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 and Mild episode of recurrent major depressive disorder F33.0 [facility] [address] [address] Oct, [facility] [address] [address] Oct, [facility] [address] [phone] Aug, [facility] [address] [address] Jul, [facility] [address] [address] Jul, History of renal insufficien cy syndrome Z87.448 [facility] [address] [place] [id number] [place] [phone] Jun, [place] [address] [place] [id number] [place] [phone] May, [facility] [address] [place] [id number] [place] [phone] May, History of renal insufficien cy syndrome Z87.448 [place] [address] [place] [id number] [place] [phone] May, [place] [address] [place] [id number] [place] [phone] Mar, [place] [address] [place] [id number] [place] [address] Mar, Intrinsic eczema L20.84 [place] [address] [place] [id number] [place] [phone] Mar, Type 1 diabetes mellitus wit hout complication E10.9 [place] [address] [address] Feb, Type 1 diabetes mellitus wit hout complication E10.9 ; Partial symptomatic epilepsy with simple partial seizures, not intractable, without status epilepticus G40.109 ; History of renal insufficiency syndrome Z87.448 and 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 [place] [address] [place] [id number] [place] [phone] January, Dysthymic disorder F34.1 [place] [address] [address] January, Dysthymic disorder F34.1 [place] [address] [place] [id number] [place] [phone] January, Dysthymic disorder F34.1 IMMUNIZATIONS No Known Immunizations SOCIAL HISTORY Never Assessed REASON FOR VISIT was complaining of nausea last noc, and when he woke up this am...he had a "bump " on his right hand betweem his thumb et index finger. reports the bump itches. [email or web address] PLAN OF CARE Activity Details Follow Up prn Reason: VITAL SIGNS Height 62 in 2018-04-07 Weight 139.4 lbs 2018-04-07 Temperature 98.4 degrees Fahrenheit 2018-04-07 Heart Rate 86 bpm 2018-04-07 Respiratory Rate 20 2018-04-07 BMI 25.49 kg/m2 2018-04-07 Blood pressure systolic 120 mmHg 2018-04-07 Blood pressure diastolic 76 mmHg 2018-04-07 MEDICATIONS Medication Instructions Dosage Frequency Start Date End Date Duration S tat Lancets - Active Zoloft 50 mg Orally Once a day 1/2 tab x 1 week then 1 tab daily 24 h Nov, 30 day(s) Active Abilify 20 MG Orally Once a day 1 tablet 24h Active Triamcinolone Acetonide 0.025 % Externally Twice a day for u p to two weeks 1 application to affected area Mar, Active Lamictal 200 mg Orally Twice a day 1 tablet 12h Active Flonase 50 MCG/ACT Nasally twice a day 1 spray in each nostril 12h January, 30 day(s) Active Lisinopril 10 mg Orally Once a day 1 tablet 24h Active Lasix 40 mg Orally PRN 1 tablet Active Testosterone Cypionate 200 MG/ML Intramuscular every 2 weeks 1 ml May, Active PredniSONE 5 mg Orally Once a day 1 tablet every other day alternating w/ 1.5 tablets every other day 24h Acti ve Klonopin 0.5 MG Orally Once a day 1 tablet for 1 week, then increas e to 2 24h Dec, Active Test strips Active Propranolol HCl ER 60 MG Orally Once a day 1 capsule 24h Active Tramadol HCl 50 mg Orally every 12 PRN pain 1-2 tablet Dec, 018 Active NovoLog 100 UNIT/ML Subcutaneous, via pump daily 50 units 24h Active Percocet 10-325 MG Orally every 6 hrs 1 tablet as needed 6h Active RESULTS No Results PROCEDURES Procedure Date Ordered Result Body Site [facility] VISIT ESTABLISHED PATIENT Apr 07, 2018 INSTRUCTIONS MEDICATIONS ADMINISTERED No Known Medications MEDICAL (GENERAL) HISTORY Type Description Date Medical History nephrotic syndrome Medical History diabetes Medical History epilepsy Medical History HTN Medical History low testosterone Surgical History kidney biopsy Hospitalization History Concussion- hospitalized for 1 month 2014 (?)
--- OUTSIDE RECORDS SUMMARY | 2020-03-03 17:06 | XMS REPORT ---
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 Active 206857656 Problem Cough R05 Active 53448984 Problem Common cold virus J00 Active 82 430133 Problem Intrinsic eczema L20.84 Active 240 40398 Problem 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 Active 34107770 Problem Nonintractable epilepsy with out status epilepticus, unspecified epilepsy type G40.909 Active 519452390 Problem Mild episode of recurrent major depressive disorder F33.0 Active 637301886 ALLERGIES No Information ENCOUNTERS Encounter Location Date Diagnosis [facility] [address] [facility] [id number] [address] [place] [phone] Jun, [facility] [address] [facility] [address] [facility] [id number] [address] [place] [address] 05 May, 2018 Type 1 diabetes mellitus wit h diabetic chronic kidney disease E10.22 ; Chronic kidney disease, stage 4 (severe) N18.4 ; 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0 ; Insect bite ( nonvenomous) of right hand, initial encounter S60.561A and Insect bite, initial encounter W57.XXXA [facility] [address] [place] [id number] [place] [phone] Mar, [facility] [address] [place] [id number] [place] [phone] January, [facility] [address] [facility] [address] [facility] [id number] [address] [place] [phone] January, [facility] [address] [place] [id number] [place] [phone] January, [facility] [address] [place] [id number] [place] [phone] January, Cough R05 and Common cold vi sonia J00 [facility] [address] [place] [id number] [place] [phone] January, [facility] [address] [place] [id number] [place] [id number] Dec, Encounter for dental examina tion Z01.20 [facility] [address] [id number] [address], [place] [address] Dec, [facility] [address] [place] [id number] [place] [phone] Dec, 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, initial encounter S06.9X9A and Nonintractable epilepsy without status epilepticus, unspecified epilepsy type G40.909 [facility] [address] [place] [id number] [place] [phone] Dec, Fatigue, unspecified type R5 3.83 ; 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 ; Chronic kidney disease, stage 4 (severe) N18.4 and Nephrotic syndrome N04.9 [facility] [address] [facility] [address] [facility] [id number] [address] [place] [phone] Dec, [facility] [address] [address] [facility] [id number] [address] [place] [phone] Nov, [facility] [address] [facility] [address] [facility] [id number] [address] [place] [phone] Nov, Dermatitis L30.9 [facility] [address] [facility] [address] [facility] [id number] [address] [place] [phone] Nov, Chronic kidney disease, stag e 4 (severe) N18.4 ; 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 and Mild episode of recurrent major depressive disorder F33.0 [facility] [address] [facility] [address] [facility] [id number] [address] [place] [phone] Oct, [facility] [address] [place] [id number] [place] [phone] Oct, [facility] [address] [place] [id number] [place] [phone] Aug, [facility] [address] [place] [id number] [place] [phone] Jul, [facility] [address] [place] [id number] [place] [phone] Jul, History of renal insufficien cy syndrome Z87.448 [facility] [address] [place] [id number] [place] [phone] Jun, [facility] [address] [facility] [address] [facility] [id number] [address] [place] [phone] May, [facility] [address] [place] [id number] [place] [address] May, History of renal insufficien cy syndrome Z87.448 [facility] [address] [place] [id number] [place] [address] May, [facility] [id number] [place] [phone] Mar, [place] [address] [address] Mar, Intrinsic eczema L20.84 [place] [address] [address] Mar, Type 1 diabetes mellitus wit hout complication E10.9 [place] [address] [address] Feb, Type 1 diabetes mellitus wit hout complication E10.9 ; Partial symptomatic epilepsy with simple partial seizures, not intractable, without status epilepticus G40.109 ; History of renal insufficiency syndrome Z87.448 and 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 [place] [address] [place] [id number] [address] [place] [address] January, Dysthymic disorder F34.1 [place] [address] [address] January, Dysthymic disorder F34.1 [place] [address] [address] January, Dysthymic disorder F34.1 IMMUNIZATIONS No Known Immunizations SOCIAL HISTORY Never Assessed REASON FOR VISIT ER Visit PLAN OF CARE VITAL SIGNS MEDICATIONS Unknown [...]
--- OUTSIDE RECORDS SUMMARY | 2020-03-03 17:06 | XMS REPORT ---
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 Active 542731162 Problem Nephrotic syndrome N04.9 Active 5 4359778 Problem Chronic kidney disease, stage 4 (severe) N18.4 Active 245014325 Problem senior living (current) use of systemic steroids Z79.5 2 Active [id number] Problem Frequent fractures of bone Z87.81 Act jamie 785253492 Problem Nonintractable epilepsy with out status epilepticus, unspecified epilepsy type G40.909 Active 815421342 Problem Mild episode of recurrent major depressive disorder F33.0 Active 842135050 Problem Cough R05 Active 09152379 Problem Common cold virus J00 Active 82 104436 ALLERGIES No Information ENCOUNTERS Encounter Location Date Diagnosis [facility] [address] [facility] [id number] [address] [place] [phone] Aug, [facility] [address] [facility] [id number] [address] [place] [address] Jul, Frequent fractures of bone Z 87.81 and 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 [facility] [address] [facility] [id number] [address] [place] [address] Jun, Medicare annual wellness vis it, initial Z00.00 ; Encounter for immunization Z23 ; Mild episode of recurrent major depressive disorder F33.0 ; 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 ; Chronic kidney disease, stage 4 (severe) N18.4 ; Nephrotic syndrome N04.9 and Growth hormone deficiency E23.0 [facility] [address] [place] [id number] [address] [place] [address] Jun, [place] [address] [address] Jun, Mild episode of recurrent ma patric depressive disorder F33.0 [facility] [address] [address] Jun, Rib pain on right side R07.8 1 ; Finger pain, right M79.644 and Pain around toenail, left foot M79.675 [place] [address] [address] May, Type 1 diabetes mellitus wit h diabetic chronic kidney disease E10.22 ; Chronic kidney disease, stage 4 (severe) N18.4 ; 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 ; Nonintractable epilepsy without status epilepticus, unspecified epilepsy type G40.909 and Elevated parathyroid hormone E34.9 [place] [address] [address] Apr, [place] [address] [address] Apr, [facility] [address] [address] Apr, Nausea R11.0 ; Insect bite ( nonvenomous) of right hand, initial encounter S60.561A and Insect bite, initial encounter W57.XXXA [place] [address] [address] Mar, [place] [address] [address] January, [place] [address] [address] January, [facility] [address] [facility] [id number] [address] [place] [address] January, [facility] [address] [facility] [id number] [address] [place] [address] January, Cough R05 and Common cold vi sonia J00 [facility] [address] [facility] [id number] [address] [place] [address] January, [facility] [address] [place] [id number] [address] [place] [id number] Dec, Encounter for dental examina tion Z01.20 [facility] [address] [id number] [place] [address] Dec, [facility] [address] [place] [id number] [address] [place] [address] Dec, 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 [address] [place] [id number] [address] [place] [phone] Dec, [facility] [address] [facility] [id number] [address] [place] [phone] Nov, [facility] [address] [facility] [id number] [address] [place] [address] Nov, Dermatitis L30.9 [facility] [address] [facility] [id number] [address] [place] [address] Nov, Chronic kidney disease, stag e 4 (severe) N18.4 ; 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 and Mild episode of recurrent major depressive disorder F33.0 [facility] [address] [id number] [address] [place] [phone] Oct, [facility] [address] [facility] [id number] [address] [place] [address] Oct, [facility] [address] [facility] [id number] [address] [place] [address] Aug, [facility] [address] [facility] [id number] [address] [place] [address] Jul, [facility] [address] [facility] [id number] [address] [place] [address] Jul, History of renal insufficien cy syndrome Z87.448 [facility] [address] [facility] [id number] [address] [place] [address] Jun, [facility] [address] [facility] [id number] [address] [place] [address] May, [facility] [address] [facility] [id number] [address] [place] [address] May, History of renal insufficien cy syndrome Z87.448 [facility] [address] [facility] [id number] [address] [place] [address] May, [facility] [address] [facility] [id number] [address] [place] [address] Mar, [facility] [address] [facility] [id number] [address] [place] [address] Mar, Intrinsic eczema L20.84 [facility] [address] [facility] [id number] [address] [place] [phone] Mar, Type 1 diabetes mellitus wit hout complication E10.9 [facility] [address] [facility] [id number] [address] [place] [address] Feb, Type 1 diabetes mellitus wit hout complication E10.9 ; Partial symptomatic epilepsy with simple partial seizures, not intractable, without status epilepticus G40.109 ; History of renal insufficiency syndrome Z87.448 and 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 [place] [address] [place] [address] January, Dysthymic disorder F34.1 [place] [address] [place] [address] January, Dysthymic disorder F34.1 [place] [address] [place] [address] January, Dysthymic disorder F34.1 IMMUNIZATIONS No Known Immunizations SOCIAL HISTORY Never Assessed REASON FOR VISIT Dexa order clarification PLAN OF CARE Activity Details Pending Test DEXA VITAL SIGNS MEDICATIONS Unknown Medications RESULTS No Results PROCEDURES No Known procedures INSTRUCTIONS MEDICATIONS ADMINISTERED No Known Medications MEDICAL (GENERAL) HISTORY Type Description Date Medical History nephrotic syndrome Medical History diabetes Medical History epilepsy Medical History HTN Medical History low testosterone Medical History gastopernesis Surgical History kidney biopsy Hospitalization History Concussion- hospitalized for 1 month 2014 (?)
--- OUTSIDE RECORDS SUMMARY | 2020-03-03 17:08 | XMS REPORT | Continuity of Care Document ---
Author Organization Unknown Address Unknown Phone Unavailable Allergies Active Description Code Type Severity Reaction Onset Reported/Identified Relationship to Patient Clinical Status Yes promethazine [id number] Drug Allergy Unknown N/A 04/04/2009 Yes levetiracetam [id number] Raúl g Allergy Unknown N/A 11/14/2017 Yes Penicillins [id number] Drug Aller gy Unknown N/A 11/14/2017 Medications There is no data. 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,NOT 08/22/2017 ADRY ZHOU MD Ot N18.4 CHRONIC KIDNEY DISEASE, STAGE 4 (SEVERE) 08/22/2017 ADYR ZHOU MD Ot R80.9 PROTEINURIA, UNSPECIFIED 08/22/2017 ADRY ZHOU MD Ot Z87.448 PERSONAL HISTORY OF OTHER DISEASES OF UR 08/31/2017 ADRY ZHOU MD Ot E10.22 TYPE 1 DIABETES MELLITUS W DIABETIC TOBACCO SIEVE OPERATOR 08/31/2017 ADRY ZHOU MD Ot 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,NOT 08/31/2017 ADRY ZHOU MD Ot N18.4 CHRONIC KIDNEY DISEASE, STAGE 4 (SEVERE) 08/31/2017 ADRY ZHOU MD Ot R80.9 PROTEINURIA, UNSPECIFIED 08/31/2017 ADRY ZHOU MD Ot Z87.448 PERSONAL HISTORY OF OTHER DISEASES OF UR 11/06/2017 ADRY ZHOU MD Ot E10.22 TYPE 1 DIABETES MELLITUS W DIABETIC TOBACCO SIEVE OPERATOR 11/06/2017 ADRY ZHOU MD, Ot 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,NOT 11/06/2017 ADRY ZHOU MD, Ot N18.4 CHRONIC KIDNEY DISEASE, STAGE 4 (SEVERE) 11/06/2017 ADRY ZHOU MD, Ot R80.9 PROTEINURIA, UNSPECIFIED 11/06/2017 ADRY ZHOU MD, Ot Z87.448 PERSONAL HISTORY OF OTHER DISEASES OF UR 11/07/2017 BLAINE HOLCOMB MD Ot G40.909 EPILEPSY, UNSP, NOT INTRACTABLE, WITHOUT 11/07/2017 BLAINE HOLCOMB MD Ot 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 11/14/2017 MAYELA GUERRERO Ot R56.9 UNSPECIFIED CONVULSIONS 11/14/2017 MAYELA GUERRERO Ot R68.84 JAW PAIN 11/14/2017 MAYELA GUERRERO Ot S00.83XA CONTUSION OF OTHER PART OF HEAD, INITIAL 11/14/2017 MAYELA GUERRERO Ot S09.90XA UNSPECIFIED INJURY OF HEAD, INITIAL ENCO 11/14/2017 MAYELA GUERRERO Ot S23.3XXA SPRAIN OF LIGAMENTS OF THORACIC SPINE, I 11/14/2017 MAYELA GUERRERO Ot S39.012A STRAIN OF MUSCLE, FASCIA AND TENDON OF L 11/14/2017 MAYELA GUERRERO Ot W19.XXXA UNSPECIFIED FALL, INITIAL ENCOUNTER 11/14/2017 MAYELA GUERRERO Ot Z79.52 [facility] (CURRENT) USE OF SYSTEMIC STER 11/14/2017 MAYELA GUERRERO Ot Z88.0 ALLERGY STATUS TO PENICILLIN 11/14/2017 MAYELA GUERRERO Ot Z88.1 ALLERGY STATUS TO OTHER ANTIBIOTIC AGENT 11/14/2017 MAYELA GUERRERO Ot Z88.8 ALLERGY STATUS TO OTH DRUG/MEDS/BIOL SUB 11/16/2017 MAYELA GUERRERO Ot R56.9 UNSPECIFIED CONVULSIONS 11/16/2017 MAYELA GUERRERO Ot R68.84 JAW PAIN 11/16/2017 MAYELA GUERRERO Ot S00.83XA CONTUSION OF OTHER PART OF HEAD, INITIAL 11/16/2017 MAYELA GUERRERO Ot S09.90XA UNSPECIFIED INJURY OF HEAD, INITIAL ENCO 11/16/2017 MAYELA GUERRERO Ot S23.3XXA SPRAIN OF LIGAMENTS OF THORACIC SPINE, I 11/16/2017 MAYELA GUERRERO Ot S39.012A STRAIN OF MUSCLE, FASCIA AND TENDON OF L 11/16/2017 MAYELA GUERRERO Ot W19.XXXA UNSPECIFIED FALL, INITIAL ENCOUNTER 11/16/2017 MAYELA GUERRERO Ot Z79.52 [facility] (CURRENT) USE OF SYSTEMIC STER 11/16/2017 MAYELA GUERRERO Ot Z88.0 ALLERGY STATUS TO PENICILLIN 11/16/2017 MAYELA GUERRERO Ot Z88.1 ALLERGY STATUS TO OTHER ANTIBIOTIC AGENT 11/16/2017 MAYELA GUERRERO Ot Z88.8 ALLERGY STATUS TO OTH DRUG/MEDS/BIOL SUB 11/23/2017 ADRY ZHOU MD Ot E10.9 TYPE 1 DIABETES MELLITUS WITHOUT COMPLIC 11/23/2017 ADRY ZHOU MD Ot 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,NOT 11/23/2017 ADRY ZHOU MD Ot N04.9 NEPHROTIC SYNDROME WITH UNSPECIFIED MORP 11/23/2017 ADRY ZHOU MD Ot N18.4 CHRONIC KIDNEY DISEASE, STAGE 4 (SEVERE) 11/23/2017 ADRY ZHOU MD Ot R80.9 PROTEINURIA, UNSPECIFIED 11/23/2017 ADRY ZHOU MD Ot Z87.448 PERSONAL HISTORY OF OTHER DISEASES OF UR 11/28/2017 BLAINE HOLCOMB MD Ot G40.909 EPILEPSY, UNSP, NOT INTRACTABLE, WITHOUT 11/28/2017 BLAINE HOLCOMB MD Ot Z79.899 OTHER [facility] (CURRENT) DRUG THERAPY 12/04/2017 ADRY ZHOU MD Ot E10.9 TYPE 1 DIABETES MELLITUS WITHOUT COMPLIC 12/04/2017 ADRY ZHOU MD Ot 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,NOT 12/04/2017 ADRY ZHOU MD Ot N04.9 NEPHROTIC SYNDROME WITH UNSPECIFIED MORP 12/04/2017 ADRY ZHOU MD, Ot N18.4 CHRONIC KIDNEY DISEASE, STAGE 4 (SEVERE) 12/04/2017 ADRY ZHOU MD Ot R80.9 PROTEINURIA, UNSPECIFIED 12/04/2017 ADRY ZHOU MD, Ot Z87.448 PERSONAL HISTORY OF OTHER DISEASES OF UR 12/05/2017 JORGE L TYLER MD Ot E10.2 2 TYPE 1 DIABETES MELLITUS W DIABETIC TOBACCO SIEVE OPERATOR 12/05/2017 JORGE L TYLER MD Ot N18.4 CHRONIC KIDNEY DISEASE, STAGE 4 (SEVERE) 12/05/2017 JORGE L TYLER MD Ot R53.8 3 OTHER FATIGUE 12/07/2017 BLAINE HOLCOMB MD Ot G40.909 EPILEPSY, UNSP, NOT INTRACTABLE, WITHOUT 12/07/2017 BLAINE HOLCOMB MD Ot Z79.899 OTHER [facility] (CURRENT) DRUG THERAPY 12/10/2017 VALENTINO WILLAMS Ot R56. 9 UNSPECIFIED CONVULSIONS 12/10/2017 VALENTINO WILLAMS Ot S06.9X9A UNSP INTRACRANIAL INJURY W LOC OF UNSP D 12/10/2017 VALENTINO WILLAMS Ot W19.XXXA UNSPECIFIED FALL, INITIAL ENCOUNTER 12/21/2017 ADRY ZHOU MD Ot E10.9 TYPE 1 DIABETES MELLITUS WITHOUT COMPLIC 12/21/2017 ADRY ZHOU MD Ot G40.109 LOCAL-[facility] SYMPTC EPI W SIMP PRT SEIZ,NOT 12/21/2017 ADRY ZHOU MD Ot N04.9 NEPHROTIC SYNDROME WITH UNSPECIFIED MORP 12/21/2017 ADRY ZHOU MD, Ot N18.4 CHRONIC KIDNEY DISEASE, STAGE 4 (SEVERE) 12/21/2017 ADRY ZHOU MD Ot R80.9 PROTEINURIA, UNSPECIFIED 12/21/2017 ADRY ZHOU MD Ot Z87.448 PERSONAL HISTORY OF OTHER DISEASES OF UR 12/27/2017 JORGE L TYLER MD Ot E10.2 2 TYPE 1 DIABETES MELLITUS W DIABETIC TOBACCO SIEVE OPERATOR 12/27/2017 JORGE L TYLER MD Ot N18.4 CHRONIC KIDNEY DISEASE, STAGE 4 (SEVERE) 12/27/2017 JORGE L TYLER MD Ot R53.8 3 OTHER FATIGUE 12/28/2017 MIGUEL IBANEZ, VALENTINO Ot R56. 9 UNSPECIFIED CONVULSIONS 12/28/2017 VALENTINO WILLAMS Ot S06.9X9A UNSP INTRACRANIAL INJURY W LOC OF [facility] D 12/28/2017 VALENTINO WILLAMS Ot W19.XXXA UNSPECIFIED FALL, INITIAL ENCOUNTER 12/28/2017 ADRY ZHOU MD Ot E10.9 TYPE 1 DIABETES MELLITUS WITHOUT COMPLIC 12/28/2017 ADRY ZHOU MD Ot G40.109 LOCAL-[facility] SYMPTC EPI W SIMP PRT SEIZ,NOT 12/28/2017 ADRY ZHOU MD Ot N04.9 NEPHROTIC SYNDROME WITH UNSPECIFIED MORP 12/28/2017 ADRY ZHOU MD Ot N18.4 CHRONIC KIDNEY DISEASE, STAGE 4 (SEVERE) 12/28/2017 ADRY ZHOU MD Ot R80.9 PROTEINURIA, UNSPECIFIED 12/28/2017 ADRY ZHOU MD Ot Z87.448 PERSONAL HISTORY OF OTHER DISEASES OF UR 01/04/2018 JORGE L TYLER MD Ot E10.2 2 TYPE 1 DIABETES MELLITUS W DIABETIC TOBACCO SIEVE OPERATOR 01/04/2018 JORGE L TYLER MD Ot N18.4 CHRONIC KIDNEY DISEASE, STAGE 4 (SEVERE) 01/04/2018 JORGE L TYLER MD Ot R53.8 3 OTHER FATIGUE 01/04/2018 VALENTINO WILLAMS Ot R56. 9 UNSPECIFIED CONVULSIONS 01/04/2018 VALENTINO WILLAMS Ot S06.9X9A UNSP INTRACRANIAL INJURY W LOC OF [facility] D 01/04/2018 VALENTINO WILLAMS Ot W19.XXXA UNSPECIFIED FALL, INITIAL ENCOUNTER 02/01/2018 JORGE L TYLER MD Ot E10.2 2 TYPE 1 DIABETES MELLITUS W DIABETIC TOBACCO SIEVE OPERATOR 02/01/2018 JORGE L TYLER MD Ot N18.4 CHRONIC KIDNEY DISEASE, STAGE 4 (SEVERE) 02/01/2018 JORGE L TYLER MD Ot R53.8 3 OTHER FATIGUE 02/01/2018 ADRY ZHOU MD Ot E10.9 TYPE 1 DIABETES MELLITUS WITHOUT COMPLIC 02/01/2018 ADRY ZHOU MD, Ot G40.109 [facility]P PRT SEIZ,NOT 02/01/2018 ADRY ZHOU MD Ot N04.9 NEPHROTIC SYNDROME WITH UNSPECIFIED MORP 02/01/2018 WINNIE MAKI, ADRY Ot N18.4 CHRONIC KIDNEY DISEASE, STAGE 4 (SEVERE) 02/01/2018 ADRY ZHOU MD Ot R80.9 PROTEINURIA, UNSPECIFIED 02/01/2018 ADRY ZHOU MD Ot Z87.448 PERSONAL HISTORY OF OTHER DISEASES OF UR 02/12/2018 XI ZHOU MD Ot E10.9 TYPE 1 DIABETES MELLITUS WITHOUT COMPLIC 02/12/2018 XI ZHOU MD Ot E87.2 ACIDOSIS 02/12/2018 XI ZHOU MD Ot G40.109 [facility] SIMP PRT SEIZ,NOT 02/12/2018 XI ZHOU MD Ot G40.909 EPILEPSY, UNSP, NOT INTRACTABLE, WITHOUT 02/12/2018 WINNIE MAKI, XI Rahman Ot N04.9 NEPHROTIC SYNDROME WITH UNSPECIFIED MORP 02/12/2018 XI ZHOU MD Ot N05.9 UNSP NEPHRITIC SYNDROME WITH UNSPECIFIED 02/12/2018 WINNIE MAKI, XI Rahman Ot N18.4 CHRONIC KIDNEY DISEASE, STAGE 4 (SEVERE) 02/12/2018 XI ZHOU MD Ot R39.198 OTHER DIFFICULTIES WITH MICTURITION 02/12/2018 WINNIE MAKI, XI Rahman Ot Z87.448 PERSONAL HISTORY OF OTHER DISEASES OF UR 02/20/2018 JORGE L TYLER MD Ot E10.2 2 TYPE 1 DIABETES MELLITUS W DIABETIC TOBACCO SIEVE OPERATOR 02/20/2018 JORGE L TYLER MD Ot N18.4 CHRONIC KIDNEY DISEASE, STAGE 4 (SEVERE) 02/20/2018 JORGE L TYLER MD Ot R53.8 3 OTHER FATIGUE 02/20/2018 ADRY ZHOU MD Ot E10.9 TYPE 1 DIABETES MELLITUS WITHOUT COMPLIC 02/20/2018 ADRY ZHOU MD Ot G40.109 LOCAL-[facility] SYMPTC EPI W SIMP PRT SEIZ,NOT 02/20/2018 ADRY ZHOU MD Ot N04.9 NEPHROTIC SYNDROME WITH UNSPECIFIED MORP 02/20/2018 ADRY ZHOU MD Ot N18.4 CHRONIC KIDNEY DISEASE, STAGE 4 (SEVERE) 02/20/2018 DARY ZHOU MD Ot R80.9 PROTEINURIA, UNSPECIFIED 02/20/2018 ADRY ZHOU MD Ot Z87.448 PERSONAL HISTORY OF OTHER DISEASES OF UR 03/01/2018 JORGE L TYLER MD Ot E10.2 2 TYPE 1 DIABETES MELLITUS W DIABETIC TOBACCO SIEVE OPERATOR 03/01/2018 JORGE L TYLER MD Ot N18.4 CHRONIC KIDNEY DISEASE, STAGE 4 (SEVERE) 03/01/2018 JORGE L TYLER MD Ot R53.8 3 OTHER FATIGUE 03/01/2018 ADRY ZHOU MD Ot E10.9 TYPE 1 DIABETES MELLITUS WITHOUT COMPLIC 03/01/2018 ADRY ZHOU MD Ot 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,NOT 03/01/2018 ADRY ZHOU MD Ot N04.9 NEPHROTIC SYNDROME WITH UNSPECIFIED MORP 03/01/2018 ADRY ZHOU MD Ot N18.4 CHRONIC KIDNEY DISEASE, STAGE 4 (SEVERE) 03/01/2018 ADRY ZHOU MD Ot R80.9 PROTEINURIA, UNSPECIFIED 03/01/2018 ADRY ZHOU MD Ot Z87.448 PERSONAL HISTORY OF OTHER DISEASES OF UR 03/07/2018 XI ZHOU MD Ot E10.9 TYPE 1 DIABETES MELLITUS WITHOUT COMPLIC 03/07/2018 XI ZHOU MD Ot E87.2 ACIDOSIS 03/07/2018 XI ZHOU MD Ot 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,NOT 03/07/2018 XI ZHOU MD Ot G40.909 EPILEPSY, UNSP, NOT INTRACTABLE, WITHOUT 03/07/2018 XI ZHOU MD Ot N04.9 NEPHROTIC SYNDROME WITH UNSPECIFIED MORP 03/07/2018 XI ZHOU MD Ot N05.9 UNSP NEPHRITIC SYNDROME WITH UNSPECIFIED 03/07/2018 XI ZHOU MD Ot N18.4 CHRONIC KIDNEY DISEASE, STAGE 4 (SEVERE) 03/07/2018 WINNIE MAKI MAXIMONICA Rahman Ot R39.198 OTHER DIFFICULTIES WITH MICTURITION 03/07/2018 WINNIE MAKI MAXIMONICA Rahman Ot Z87.448 PERSONAL HISTORY OF OTHER DISEASES OF UR 03/15/2018 XI ZHOU MD Ot E10.9 TYPE 1 DIABETES MELLITUS WITHOUT COMPLIC 03/15/2018 XI ZHOU MD Ot E87.2 ACIDOSIS 03/15/2018 XI ZHOU MD Ot 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,NOT 03/15/2018 WINNIE MAKI MAXIMONICA Rahman Ot G40.909 EPILEPSY, UNSP, NOT INTRACTABLE, WITHOUT 03/15/2018 XI ZHOU MD Ot N04.9 NEPHROTIC SYNDROME WITH UNSPECIFIED MORP 03/15/2018 XI ZHOU MD Ot N05.9 UNSP NEPHRITIC SYNDROME WITH UNSPECIFIED 03/15/2018 WINNIE MAKI MAXIMONICA Rahman Ot N18.4 CHRONIC KIDNEY DISEASE, STAGE 4 (SEVERE) 03/15/2018 WINNIE MAKI MAXIMONICA Rahman Ot R39.198 OTHER DIFFICULTIES WITH MICTURITION 03/15/2018 WINNIE MAKI MAXIMONICA Rahman Ot Z87.448 PERSONAL HISTORY OF OTHER DISEASES OF UR 04/19/2018 Ot 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.4 TOBACCO SIEVE OPERATOR GYALE KIDNEY DISEASE, STAGE 4 (SEVERE) 04/22/2018 Ot E10.9 TYPE 1 DIABETES MELLITUS WITHOUT COMPLIC 04/22/2018 Ot E87.2 ACID OSIS 04/22/2018 Ot G40.109 LO AG-REL SYMPTC EPI W SIMP PRT SEIZ,NOT 04/22/2018 Ot N04.9 NEPH ROTIC SYNDROME WITH UNSPECIFIED MORP 04/22/2018 Ot 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 04/22/2018 Ot 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 KIDNEY DISEASE, STAGE 4 (SEVERE) 04/22/2018 Ot R80.9 PROT EINURIA, UNSPECIFIED 04/22/2018 Ot Z87.448 PE RSONAL HISTORY OF OTHER DISEASES OF UR 04/23/2018 SIMONE PRATER MD Ot E10.22 TYPE 1 DIABETES MELLITUS W DIABETIC TOBACCO SIEVE OPERATOR 04/23/2018 SIMONE PRATER MD Ot E10.65 TYPE 1 DIABETES MELLITUS WITH HYPERGLYCE 04/23/2018 SIMONE PRATER MD Ot F17.210 NICOTINE DEPENDENCE, CIGARETTES, UNCOMPL 04/23/2018 SIMONE PRATER MD Ot G40.909 EPILEPSY, UNSP, NOT INTRACTABLE, WITHOUT 04/23/2018 SIMONE PRATER MD Ot G43.909 MIGRAINE, UNSP, NOT INTRACTABLE, WITHOUT 04/23/2018 SIMONE PRATER MD Ot I11.0 HYPERTENSIVE HEART DISEASE WITH HEART FA 04/23/2018 SIMONE PRATER MD Ot M79.1 MYALGIA 04/23/2018 SIMONE PRATER MD Ot N18.9 CHRONIC KIDNEY DISEASE, UNSPECIFIED 04/23/2018 SIMONE PRATER MD Ot R11.2 NAUSEA WITH VOMITING, UNSPECIFIED 04/23/2018 SIMONE PRATER MD Ot Z79.51 RESEARCH QUALITY ASSURANCE SPECIALIST (CURRENT) USE OF INHALED STERO 04/23/2018 SIMONE PRATER MD Ot Z79.52 RESEARCH QUALITY ASSURANCE SPECIALIST (CURRENT) USE OF SYSTEMIC STER 04/23/2018 SIMONE PRATER MD Ot Z87.01 PERSONAL HISTORY OF PNEUMONIA (RECURRENT 04/23/2018 SIMONE PRATER MD, Ot Z88.0 ALLERGY STATUS TO PENICILLIN 04/23/2018 SIMONE PRATER MD Ot Z88.8 ALLERGY STATUS TO OTH DRUG/MEDS/BIOL SUB 04/23/2018 SIMONE PRATER MD Ot Z91.5 PERSONAL HISTORY OF SELF-HARM 04/30/2018 LUIS CONNOR MD Ot E10.22 TYPE 1 DIABETES MELLITUS W DIABETIC TOBACCO SIEVE OPERATOR 04/30/2018 LUIS CONNOR MD Ot F12.10 CANNABIS ABUSE, UNCOMPLICATED 04/30/2018 LUIS CONNOR MD Ot G40.909 EPILEPSY, UNSP, NOT INTRACTABLE, WITHOUT 04/30/2018 LUIS CONNOR MD Ot G43.909 MIGRAINE, UNSP, NOT INTRACTABLE, WITHOUT 04/30/2018 LUIS CONNOR MD Ot I12 .9 HYPERTENSIVE CHRONIC KIDNEY DISEASE W ST 04/30/2018 LUIS CONNOR MD Ot N18 .9 CHRONIC KIDNEY DISEASE, UNSPECIFIED 04/30/2018 LUIS CONNOR MD Ot R11 .2 NAUSEA WITH VOMITING, UNSPECIFIED 04/30/2018 LUIS CONNOR MD Ot R56 .9 UNSPECIFIED CONVULSIONS 04/30/2018 LUIS CONNOR MD Ot Z79.51 [facility] (CURRENT) USE OF INHALED STERO 04/30/2018 LUIS CONNOR MD Ot Z79.52 [facility] (CURRENT) USE OF SYSTEMIC STER 04/30/2018 LUIS CONNOR MD Ot Z87.01 PERSONAL HISTORY OF PNEUMONIA (RECURRENT 04/30/2018 LUIS CONNOR MD Ot Z88 .0 ALLERGY STATUS TO PENICILLIN 04/30/2018 LUIS CONNOR MD Ot Z88 .8 ALLERGY STATUS TO OTH DRUG/MEDS/BIOL SUB 04/30/2018 LUIS CONNOR MD Ot Z91 .5 PERSONAL HISTORY OF SELF-HARM 05/02/2018 LUIS CONNOR MD Ot E10.22 TYPE 1 DIABETES MELLITUS W DIABETIC TOBACCO SIEVE OPERATOR 05/02/2018 LUIS CONNOR MD Ot F12.10 CANNABIS ABUSE, UNCOMPLICATED 05/02/2018 LUIS CONNOR MD Ot G40.909 EPILEPSY, UNSP, NOT INTRACTABLE, WITHOUT 05/02/2018 LUIS CONNOR MD Ot G43.909 MIGRAINE, UNSP, NOT INTRACTABLE, WITHOUT 05/02/2018 LUIS CONNOR MD Ot I12 .9 HYPERTENSIVE CHRONIC KIDNEY DISEASE W ST 05/02/2018 LUIS CONNOR MD Ot N18 .9 CHRONIC KIDNEY DISEASE, UNSPECIFIED 05/02/2018 LUIS CONNOR MD Ot R11 .2 NAUSEA WITH VOMITING, UNSPECIFIED 05/02/2018 LUIS CONNOR MD Ot R56 .9 UNSPECIFIED CONVULSIONS 05/02/2018 LUIS CONNOR MD Ot Z79.51 [facility] (CURRENT) USE OF INHALED STERO 05/02/2018 LUIS CONNOR MD Ot Z79.52 RESEARCH QUALITY ASSURANCE SPECIALIST (CURRENT) USE OF SYSTEMIC STER 05/02/2018 LUIS CONNOR MD Ot Z87.01 PERSONAL HISTORY OF PNEUMONIA (RECURRENT 05/02/2018 NIKOLAS MAKI, LUIS Quinones Ot Z88 .0 ALLERGY STATUS TO PENICILLIN 05/02/2018 LUIS CONNOR MD Ot Z88 .8 ALLERGY STATUS TO OTH DRUG/MEDS/BIOL SUB 05/02/2018 LUIS CONNOR MD Ot Z91 .5 PERSONAL HISTORY OF SELF-HARM 05/23/2018 Ot E10.9 TYPE 1 DIABETES MELLITUS WITHOUT COMPLIC 05/23/2018 Ot E87.2 ACID OSIS 05/23/2018 Ot G40.109 LO AG-REL SYMPTC EPI W SIMP PRT SEIZ,NOT 05/23/2018 Ot N04.9 NEPH ROTIC SYNDROME WITH UNSPECIFIED MORP 05/23/2018 Ot 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 05/23/2018 Ot 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 KIDNEY DISEASE, STAGE 4 (SEVERE) 05/23/2018 Ot R80.9 PROT EINURIA, UNSPECIFIED 05/23/2018 Ot Z87.448 PE RSONAL HISTORY OF OTHER DISEASES OF UR 05/31/2018 Ot E10.9 TYPE 1 DIABETES MELLITUS WITHOUT COMPLIC 05/31/2018 Ot E87.2 ACID OSIS 05/31/2018 Ot G40.109 LO AG-REL SYMPTC EPI W SIMP PRT SEIZ,NOT 05/31/2018 Ot N04.9 NEPH ROTIC SYNDROME WITH UNSPECIFIED MORP 05/31/2018 Ot 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 05/31/2018 Ot 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 KIDNEY DISEASE, STAGE 4 (SEVERE) 05/31/2018 Ot R80.9 PROT EINURIA, UNSPECIFIED 05/31/2018 Ot Z87.448 PE RSONAL HISTORY OF OTHER DISEASES OF UR 06/24/2018 RUELAS DO, GABE L Ot N18.9 CHRONIC KIDNEY DISEASE, UNSPECIFIED 06/24/2018 RUELAS DO, GABE L Ot R10.9 UNSPECIFIED ABDOMINAL PAIN 06/28/2018 RUELAS DO, GABE L Ot N18.9 CHRONIC KIDNEY DISEASE, UNSPECIFIED 06/28/2018 RUELAS DO, GABE L Ot R10.9 UNSPECIFIED ABDOMINAL PAIN 07/03/2018 JAYSON MAKI, JORGE L Cheung Ot S22.31XD FRACTURE OF ONE RIB, RIGHT SIDE, SUBS FO 07/09/2018 ADRY ZHOU MD Ot N18.4 CHRONIC KIDNEY DISEASE, STAGE 4 (SEVERE) 07/09/2018 ADRY ZHOU MD, Ot N18.4 CHRONIC KIDNEY DISEASE, STAGE 4 (SEVERE) 07/10/2018 ADRY ZHOU MD Ot E10.9 TYPE 1 DIABETES MELLITUS WITHOUT COMPLIC 07/10/2018 ADRY ZHOU MD Ot E87.2 ACIDOSIS 07/10/2018 ADRY ZHOU MD, Ot G40.109 LOCAL-[facility] SYMPTC EPI W SIMP PRT SEIZ,NOT 07/10/2018 ADRY ZHOU MD Ot N04.9 NEPHROTIC SYNDROME WITH UNSPECIFIED MORP 07/10/2018 ADRY ZHOU MD, Ot 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 07/10/2018 ADRY ZHOU MD, Ot N18.4 CHRONIC KIDNEY DISEASE, STAGE 4 (SEVERE) 07/10/2018 ADRY ZHOU MD, Ot R80.9 PROTEINURIA, UNSPECIFIED 07/10/2018 ADRY ZHOU MD, Ot Z87.448 PERSONAL HISTORY OF OTHER DISEASES OF UR 07/17/2018 JORGE L TYLER MD Ot Z79.5 2 RESEARCH QUALITY ASSURANCE SPECIALIST (CURRENT) USE OF SYSTEMIC STER 07/17/2018 JORGE L TYLER MD Ot Z79.5 2 RESEARCH QUALITY ASSURANCE SPECIALIST (CURRENT) USE OF SYSTEMIC STER 07/19/2018 JORGE L TYLER MD Ot S22.31XD FRACTURE OF ONE RIB, RIGHT SIDE, SUBS FO 07/19/2018 JORGE L TYLER MD Ot S22.31XD FRACTURE OF ONE RIB, RIGHT SIDE, SUBS FO 07/19/2018 JORGE L TYLER MD Ot S22.31XD FRACTURE OF ONE RIB, RIGHT SIDE, SUBS FO 07/29/2018 JORGE L TYLER MD Ot M81.0 AGE-RELATED OSTEOPOROSIS W/O CURRENT PAT 07/29/2018 JORGE L TYLER MD Ot S22.31XD FRACTURE OF ONE RIB, RIGHT SIDE, SUBS FO 07/31/2018 ADRY ZHOU MD Ot E10.9 TYPE 1 DIABETES MELLITUS WITHOUT COMPLIC 07/31/2018 ADRY ZHOU MD, Ot E87.2 ACIDOSIS 07/31/2018 ADRY ZHOU MD Ot G40.109 LOCAL-[facility] SYMPTC EPI W SIMP PRT SEIZ,NOT 07/31/2018 ADRY ZHOU MD Ot N04.9 NEPHROTIC SYNDROME WITH UNSPECIFIED MORP 07/31/2018 KAIA ZHOU MDINE Ot 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 07/31/2018 ADRY ZHOU MD Ot N18.4 CHRONIC KIDNEY DISEASE, STAGE 4 (SEVERE) 07/31/2018 ADRY ZHOU MD Ot R80.9 PROTEINURIA, UNSPECIFIED 07/31/2018 ADRY ZHOU MD Ot Z87.448 PERSONAL HISTORY OF OTHER DISEASES OF UR 08/02/2018 ADRY ZHOU MD Ot E10.9 TYPE 1 DIABETES MELLITUS WITHOUT COMPLIC 08/02/2018 ADRY ZHOU MD Ot E87.2 ACIDOSIS 08/02/2018 KAIA ZHOU MDINE Ot G40.109 LOCAL-[facility] SYMPTC EPI W SIMP PRT SEIZ,NOT 08/02/2018 ADRY ZHOU MD Ot N04.9 NEPHROTIC SYNDROME WITH UNSPECIFIED MORP 08/02/2018 ADRY ZHOU MD Ot 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 08/02/2018 ADRY ZHOU MD Ot N18.4 CHRONIC KIDNEY DISEASE, STAGE 4 (SEVERE) 08/02/2018 ADRY ZHOU MD Ot R80.9 PROTEINURIA, UNSPECIFIED 08/02/2018 ADRY ZHOU MD Ot Z87.448 PERSONAL HISTORY OF OTHER DISEASES OF UR 08/15/2018 JORGE L TYLER MD Ot M81.0 AGE-RELATED OSTEOPOROSIS W/O CURRENT PAT 08/15/2018 JORGE L TYLER MD Ot S22.31XD FRACTURE OF ONE RIB, RIGHT SIDE, SUBS FO 09/11/2018 SURAJ MENDEZ, GABE L Ot E29.1 TESTICULAR HYPOFUNCTION 09/13/2018 SURAJ MENDEZ GABE L Ot E10.9 TYPE 1 DIABETES MELLITUS WITHOUT COMPLIC 09/13/2018 SURAJ MENDEZ GABE L Ot E29.1 TESTICULAR HYPOFUNCTION 10/03/2018 RUELAS DO, GABE L Ot E10.9 TYPE 1 DIABETES MELLITUS WITHOUT COMPLIC 10/03/2018 RUELAS DO, GABE L Ot E29.1 TESTICULAR HYPOFUNCTION 10/11/2018 RUELAS DO, GABE L Ot E10.9 TYPE 1 DIABETES MELLITUS WITHOUT COMPLIC 10/11/2018 RUELAS DO, GABE L Ot E29.1 TESTICULAR HYPOFUNCTION 11/04/2018 WINNIE MAKI, ADRY Ot E10.22 TYPE 1 DIABETES MELLITUS W DIABETIC TOBACCO SIEVE OPERATOR 11/04/2018 KAIA ZHOU MDINE Ot E87.2 ACIDOSIS 11/04/2018 KAIA ZHOU MDINE Ot 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,NOT 11/04/2018 KAIA ZHOU MDINE Ot N04.9 NEPHROTIC SYNDROME WITH UNSPECIFIED MORP 11/04/2018 KAIA ZHOU MDINE Ot 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 11/04/2018 KAIA ZHOU MDINE Ot N18.4 CHRONIC KIDNEY DISEASE, STAGE 4 (SEVERE) 11/04/2018 KAIA ZHOU MDINE Ot R80.9 PROTEINURIA, UNSPECIFIED 11/25/2018 KAIA ZHOU MDINE Ot E10.22 TYPE 1 DIABETES MELLITUS W DIABETIC TOBACCO SIEVE OPERATOR 11/25/2018 KAIA ZHOU MDINE Ot E87.2 ACIDOSIS 11/25/2018 ADRY ZHOU MD Ot 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,NOT 11/25/2018 DARY ZHOU MD Ot N04.9 NEPHROTIC SYNDROME WITH UNSPECIFIED MORP 11/25/2018 KAIA ZHOU MDINE Ot 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 11/25/2018 KAIA ZHOU MDINE Ot N18.4 CHRONIC KIDNEY DISEASE, STAGE 4 (SEVERE) 11/25/2018 KAIA ZHOU MDINE Ot R80.9 PROTEINURIA, UNSPECIFIED 11/29/2018 WINNIE MAKI ADRY Ot E10.22 TYPE 1 DIABETES MELLITUS W DIABETIC TOBACCO SIEVE OPERATOR 11/29/2018 KAIA ZHOU MDINE Ot E87.2 ACIDOSIS 11/29/2018 ADRY ZHOU MD Ot G40.109 LOCAL-[facility] SYMPTC EPI W SIMP PRT SEIZ,NOT 11/29/2018 ADRY ZHOU MD Ot N04.9 NEPHROTIC SYNDROME WITH UNSPECIFIED MORP 11/29/2018 ADRY ZHOU MD Ot 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 11/29/2018 ADRY ZHOU MD Ot N18.4 CHRONIC KIDNEY DISEASE, STAGE 4 (SEVERE) 11/29/2018 ADRY ZHOU MD Ot R80.9 PROTEINURIA, UNSPECIFIED 01/02/2019 ADRY ZHOU MD Ot N18.4 CHRONIC KIDNEY DISEASE, STAGE 4 (SEVERE) 01/02/2019 ADRY ZHOU MD Ot N18.4 CHRONIC KIDNEY DISEASE, STAGE 4 (SEVERE) 01/06/2019 GABE RUELAS DO Ot E10.9 TYPE 1 DIABETES MELLITUS WITHOUT COMPLIC 01/06/2019 ADRY ZHOU MD Ot E10.22 TYPE 1 DIABETES MELLITUS W DIABETIC TOBACCO SIEVE OPERATOR 01/06/2019 ADRY ZHOU MD Ot E87.2 ACIDOSIS 01/06/2019 ADRY ZHOU [facility] Ot G40.109 [facility]P PRT SEIZ,NOT 01/06/2019 ADRY ZHOU MD Ot N04.9 NEPHROTIC SYNDROME WITH UNSPECIFIED MORP 01/06/2019 ADRY ZHOU MD Ot 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 01/06/2019 ADRY ZHOU MD Ot N18.4 CHRONIC KIDNEY DISEASE, STAGE 4 (SEVERE) 01/06/2019 ADRY ZHOU MD Ot R39.198 OTHER DIFFICULTIES WITH MICTURITION 01/06/2019 ADRY ZHOU MD Ot R80.9 PROTEINURIA, UNSPECIFIED 01/06/2019 ADRY ZHOU MD Ot Z87.448 PERSONAL HISTORY OF OTHER DISEASES OF UR 01/06/2019 ADRY ZHOU MD Ot E10.22 TYPE 1 DIABETES MELLITUS W DIABETIC TOBACCO SIEVE OPERATOR 01/06/2019 ADRY ZHOU MD Ot E87.2 ACIDOSIS 01/06/2019 ADRY ZHOU MD Ot G40.109 LOCAL-[facility] SYMPTC EPI W SIMP PRT SEIZ,NOT 01/06/2019 ADRY ZHOU MD Ot N04.9 NEPHROTIC SYNDROME WITH UNSPECIFIED MORP 01/06/2019 ADRY ZHOU MD Ot 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 01/06/2019 ADRY ZHOU MD Ot N18.4 CHRONIC KIDNEY DISEASE, STAGE 4 (SEVERE) 01/06/2019 ADRY ZHOU MD Ot R39.198 OTHER DIFFICULTIES WITH MICTURITION 01/06/2019 ADRY ZHOU MD Ot R80.9 PROTEINURIA, UNSPECIFIED 01/06/2019 ADRY ZHOU MD Ot Z87.448 PERSONAL HISTORY OF OTHER DISEASES OF UR 01/09/2019 GABE RUELAS DO L Ot E10.9 TYPE 1 DIABETES MELLITUS WITHOUT COMPLIC 01/23/2019 ADRY ZHOU MD Ot E10.22 TYPE 1 DIABETES MELLITUS W DIABETIC TOBACCO SIEVE OPERATOR 01/23/2019 ADRY ZHOU MD Ot E87.2 ACIDOSIS 01/23/2019 ADRY ZHOU MD Ot G40.109 [facility]P PRT SEIZ,NOT 01/23/2019 ADRY ZOHU MD Ot N04.9 NEPHROTIC SYNDROME WITH UNSPECIFIED MORP 01/23/2019 ADRY ZHOU MD Ot 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 01/23/2019 ADRY ZHOU MD Ot N18.4 CHRONIC KIDNEY DISEASE, STAGE 4 (SEVERE) 01/23/2019 ADRY ZHOU MD Ot R39.198 OTHER DIFFICULTIES WITH MICTURITION 01/23/2019 ADRY ZHOU MD Ot R80.9 PROTEINURIA, UNSPECIFIED 01/23/2019 ADRY ZHOU MD Ot Z87.448 PERSONAL HISTORY OF OTHER DISEASES OF UR 01/29/2019 SALO RUELAS DOISON L Ot E10.9 TYPE 1 DIABETES MELLITUS WITHOUT COMPLIC 05/15/2019 ADRY ZHOU MD Ot E10.22 TYPE 1 DIABETES MELLITUS W DIABETIC TOBACCO SIEVE OPERATOR 05/15/2019 ADRY ZHOU MD Ot G40.109 LOCAL-[facility] SYMPTC EPI W SIMP PRT SEIZ,NOT 05/15/2019 ADRY ZHOU MD Ot G40.909 EPILEPSY, UNSP, NOT INTRACTABLE, WITHOUT 05/15/2019 ADRY ZHOU MD Ot N04.9 NEPHROTIC SYNDROME WITH UNSPECIFIED MORP 05/15/2019 ADRY ZHOU MD Ot 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 05/15/2019 ADRY ZHOU MD Ot N18.4 CHRONIC KIDNEY DISEASE, STAGE 4 (SEVERE) 05/15/2019 ADRY ZHOU MD Ot R39.198 OTHER DIFFICULTIES WITH MICTURITION 05/15/2019 ADRY ZHOU MD Ot R80.9 PROTEINURIA, UNSPECIFIED 05/15/2019 ADRY ZHOU MD Ot Z87.448 PERSONAL HISTORY OF OTHER DISEASES OF UR 05/29/2019 SALO RUELAS DOISON L Ot E10.9 TYPE 1 DIABETES MELLITUS WITHOUT COMPLIC 05/29/2019 GABE RUELAS DO L Ot E29.1 TESTICULAR HYPOFUNCTION 06/04/2019 ADRY ZHOU MD Ot E10.22 TYPE 1 DIABETES MELLITUS W DIABETIC TOBACCO SIEVE OPERATOR 06/04/2019 ADRY ZHOU MD Ot G40.109 [facility] PRT SEIZ,NOT 06/04/2019 ADRY ZHOU MD Ot G40.909 EPILEPSY, UNSP, NOT INTRACTABLE, WITHOUT 06/04/2019 ADRY ZHOU MD Ot N04.9 NEPHROTIC SYNDROME WITH UNSPECIFIED MORP 06/04/2019 ADRY ZHOU MD Ot 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 06/04/2019 ADRY ZHOU MD Ot N18.4 CHRONIC KIDNEY DISEASE, STAGE 4 (SEVERE) 06/04/2019 ADRY ZHOU MD Ot R39.198 OTHER DIFFICULTIES WITH MICTURITION 06/04/2019 ADRY ZHOU MD Ot R80.9 PROTEINURIA, UNSPECIFIED 06/04/2019 ADRY ZHOU MD Ot Z87.448 PERSONAL HISTORY OF OTHER DISEASES OF UR 09/08/2019 ADRY ZHOU MD Ot E10.22 TYPE 1 DIABETES MELLITUS W DIABETIC TOBACCO SIEVE OPERATOR 09/08/2019 ADRY ZHOU MD Ot G40.109 [facility] SYMP EPI W SIMP PRT SEIZ,NOT 09/08/2019 ADRY ZHOU MD Ot N18.4 CHRONIC KIDNEY DISEASE, STAGE 4 (SEVERE) 09/08/2019 ADRY ZHOU MD Ot R80.9 PROTEINURIA, UNSPECIFIED 09/08/2019 ADRY ZHOU MD Ot Z87.448 PERSONAL HISTORY OF OTHER DISEASES OF UR 09/08/2019 BLAINE HOLCOMB MD Ot G40.909 EPILEPSY, UNSP, NOT INTRACTABLE, WITHOUT 09/08/2019 BLAINE HOLCOMB MD Ot Z79.899 OTHER [facility] (CURRENT) DRUG THERAPY 09/08/2019 ADRY ZHOU MD Ot E10.9 TYPE 1 DIABETES MELLITUS WITHOUT COMPLIC 09/08/2019 ADRY ZHOU MD Ot G40.109 [facility] EPI W SIMP PRT SEIZ,NOT 09/08/2019 ADRY ZHOU MD Ot N04.9 NEPHROTIC SYNDROME WITH UNSPECIFIED MORP 09/08/2019 ADRY ZHOU MD Ot N18.4 CHRONIC KIDNEY DISEASE, STAGE 4 (SEVERE) 09/08/2019 ADRY ZHOU MD Ot R80.9 PROTEINURIA, UNSPECIFIED 09/08/2019 ADRY ZHOU MD Ot Z87.448 PERSONAL HISTORY OF OTHER DISEASES OF UR 09/08/2019 JORGE L TYLER MD Ot E10.2 2 TYPE 1 DIABETES MELLITUS W DIABETIC TOBACCO SIEVE OPERATOR 09/08/2019 JORGE L TYLER MD Ot N18.4 CHRONIC KIDNEY DISEASE, STAGE 4 (SEVERE) 09/08/2019 JORGE L TYLER MD Ot R53.8 3 OTHER FATIGUE 09/08/2019 VALENTINO WILLAMS Ot R56. 9 UNSPECIFIED CONVULSIONS 09/08/2019 VALENTINO WILLAMS Ot S06.9X9A UNSP INTRACRANIAL INJURY W LOC OF UNSP D 09/08/2019 VALENTINO WILLAMS Ot W19.XXXA UNSPECIFIED FALL, INITIAL ENCOUNTER 09/08/2019 JAYSON MAKI, JORGE L Cheung Ot E10.2 2 TYPE 1 DIABETES MELLITUS W DIABETIC TOBACCO SIEVE OPERATOR 09/08/2019 JORGE L TYLER MD Ot N18.4 CHRONIC KIDNEY DISEASE, STAGE 4 (SEVERE) 09/08/2019 JORGE L TYLER MD Ot R53.8 3 OTHER FATIGUE 09/08/2019 ADRY ZHOU MD Ot E10.9 TYPE 1 DIABETES MELLITUS WITHOUT COMPLIC 09/08/2019 ADRY ZHOU MD Ot G40.109 [facility] W SIMP PRT SEIZ,NOT 09/08/2019 ADRY ZHOU MD Ot N04.9 NEPHROTIC SYNDROME WITH UNSPECIFIED MORP 09/08/2019 ADRY ZHOU MD Ot N18.4 CHRONIC KIDNEY DISEASE, STAGE 4 (SEVERE) 09/08/2019 ADRY ZHOU MD Ot R80.9 PROTEINURIA, UNSPECIFIED 09/08/2019 ADRY ZHOU MD Ot Z87.448 PERSONAL HISTORY OF OTHER DISEASES OF UR 09/08/2019 XI ZHOU MD Ot E10.9 TYPE 1 DIABETES MELLITUS WITHOUT COMPLIC 09/08/2019 XI ZHOU MD Ot E87.2 ACIDOSIS 09/08/2019 XI ZHOU MD Ot G40.109 [facility] EPI W SIMP PRT SEIZ,NOT 09/08/2019 XI ZHOU MD Ot G40.909 EPILEPSY, UNSP, NOT INTRACTABLE, WITHOUT 09/08/2019 XI ZHOU MD Ot N04.9 NEPHROTIC SYNDROME WITH UNSPECIFIED MORP 09/08/2019 XI ZHOU MD Ot N05.9 UNSP NEPHRITIC SYNDROME WITH UNSPECIFIED 09/08/2019 XI ZHOU MD Ot N18.4 CHRONIC KIDNEY DISEASE, STAGE 4 (SEVERE) 09/08/2019 XI ZHOU MD Ot R39.198 OTHER DIFFICULTIES WITH MICTURITION 09/08/2019 XI ZHOU MD Ot Z87.448 PERSONAL HISTORY OF OTHER DISEASES OF UR 09/08/2019 Ot E10.9 TYPE 1 DIABETES MELLITUS WITHOUT COMPLIC 09/08/2019 Ot E87.2 ACID OSIS 09/08/2019 Ot G40.109 [facility] SYMPTC EPI W SIMP PRT SEIZ,NOT 09/08/2019 Ot N04.9 NEPH ROTIC SYNDROME WITH UNSPECIFIED MORP 09/08/2019 Ot 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 09/08/2019 Ot 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 KIDNEY DISEASE, STAGE 4 (SEVERE) 09/08/2019 Ot R80.9 PROT EINURIA, UNSPECIFIED 09/08/2019 Ot Z87.448 PE RSONAL HISTORY OF OTHER DISEASES OF UR 09/08/2019 RUELAS DO, GABE L Ot N18.9 CHRONIC KIDNEY DISEASE, UNSPECIFIED 09/08/2019 RUELAS DO, GABE L Ot R10.9 UNSPECIFIED ABDOMINAL PAIN 09/08/2019 JORGE L TYLER MD Ot M81.0 AGE-RELATED OSTEOPOROSIS W/O CURRENT PAT 09/08/2019 JORGE L TYLER MD Ot S22.31XD FRACTURE OF ONE RIB, RIGHT SIDE, SUBS FO 09/08/2019 ADRY ZHOU MD Ot E10.9 TYPE 1 DIABETES MELLITUS WITHOUT COMPLIC 09/08/2019 ADRY ZHOU MD Ot E87.2 ACIDOSIS 09/08/2019 ADRY ZHOU MD Ot G40.109 [facility] SYMP EPI W SIMP PRT SEIZ,NOT 09/08/2019 ADRY ZHOU MD Ot N04.9 NEPHROTIC SYNDROME WITH UNSPECIFIED MORP 09/08/2019 ADRY ZHOU MD Ot 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 09/08/2019 ADRY ZHOU MD Ot N18.4 CHRONIC KIDNEY DISEASE, STAGE 4 (SEVERE) 09/08/2019 ADRY ZHOU MD Ot R80.9 PROTEINURIA, UNSPECIFIED 09/08/2019 ADRY ZHOU MD Ot Z87.448 PERSONAL HISTORY OF OTHER DISEASES OF UR 09/08/2019 RUELAS DO, GABE L Ot E10.9 TYPE 1 DIABETES MELLITUS WITHOUT COMPLIC 09/08/2019 RUELAS DO, GABE L Ot E29.1 TESTICULAR HYPOFUNCTION 09/08/2019 ADRY ZHOU MD Ot E10.22 TYPE 1 DIABETES MELLITUS W DIABETIC TOBACCO SIEVE OPERATOR 09/08/2019 ADRY ZHOU MD Ot E87.2 ACIDOSIS 09/08/2019 ADRY ZHOU MD Ot G40.109 [facility] E[facility] W SIMP PRT SEIZ,NOT 09/08/2019 ADRY ZHOU MD Ot N04.9 NEPHROTIC SYNDROME WITH UNSPECIFIED MORP 09/08/2019 KAIA ZHOU MDINE Ot 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 09/08/2019 KAIA ZHOU MDINE Ot N18.4 CHRONIC KIDNEY DISEASE, STAGE 4 (SEVERE) 09/08/2019 ADRY ZHOU MD Ot R80.9 PROTEINURIA, UNSPECIFIED 09/08/2019 ADRY ZHOU MD Ot E10.22 TYPE 1 DIABETES MELLITUS W DIABETIC TOBACCO SIEVE OPERATOR 09/08/2019 ADRY ZHOU MD Ot E87.2 ACIDOSIS 09/08/2019 KAIA ZHOU MDINE Ot G40.109 [facility] EPI W SIMP PRT SEIZ,NOT 09/08/2019 ADRY ZHOU MD Ot N04.9 NEPHROTIC SYNDROME WITH UNSPECIFIED MORP 09/08/2019 KAIA ZHOU MDINE Ot 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 09/08/2019 KAIA ZHOU MDINE Ot N18.4 CHRONIC KIDNEY DISEASE, STAGE 4 (SEVERE) 09/08/2019 ADRY ZHOU MD Ot R39.198 OTHER DIFFICULTIES WITH MICTURITION 09/08/2019 ADRY ZHOU MD Ot R80.9 PROTEINURIA, UNSPECIFIED 09/08/2019 KAIA ZHOU MDINE Ot Z87.448 PERSONAL HISTORY OF OTHER DISEASES OF UR 09/08/2019 RUELAS DO, GABE L Ot E10.9 TYPE 1 DIABETES MELLITUS WITHOUT COMPLIC 09/08/2019 RUELAS DO, GABE L Ot E10.9 TYPE 1 DIABETES MELLITUS WITHOUT COMPLIC 09/08/2019 RUELAS DO, GABE L Ot E29.1 TESTICULAR HYPOFUNCTION 09/08/2019 ADRY ZHOU MD Ot E10.22 TYPE 1 DIABETES MELLITUS W DIABETIC TOBACCO SIEVE OPERATOR 09/08/2019 ADRY ZHOU MD Ot G40.109 [facility] SYMP[facility] EPI W SIMP PRT SEIZ,NOT 09/08/2019 ADRY ZHOU MD Ot G40.909 EPILEPSY, UNSP, NOT INTRACTABLE, WITHOUT 09/08/2019 ADRY ZHOU MD Ot N04.9 NEPHROTIC SYNDROME WITH UNSPECIFIED MORP 09/08/2019 ADRY ZHOU MD Ot 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 09/08/2019 ADRY ZHOU MD Ot N18.4 CHRONIC KIDNEY DISEASE, STAGE 4 (SEVERE) 09/08/2019 ADRY ZHOU MD Ot R39.198 OTHER DIFFICULTIES WITH MICTURITION 09/08/2019 ADRY ZHOU MD Ot R80.9 PROTEINURIA, UNSPECIFIED 09/08/2019 ADRY ZHOU MD Ot Z87.448 PERSONAL HISTORY OF OTHER DISEASES OF UR 09/08/2019 GABE RUELAS DO Ot E10.9 TYPE 1 DIABETES MELLITUS WITHOUT COMPLIC 09/08/2019 ADRY ZHOU MD Ot E10.9 TYPE 1 DIABETES MELLITUS WITHOUT COMPLIC 09/10/2019 ADRY ZHOU MD Ot E10.22 TYPE 1 DIABETES MELLITUS W DIABETIC TOBACCO SIEVE OPERATOR 09/10/2019 ADRY ZHOU MD Ot G40.109 [facility] EPI W SIMP PRT SEIZ,NOT 09/10/2019 ADRY ZHOU MD Ot G40.909 EPILEPSY, UNSP, NOT INTRACTABLE, WITHOUT 09/10/2019 ADRY ZHOU MD Ot N04.9 NEPHROTIC SYNDROME WITH UNSPECIFIED MORP 09/10/2019 ADRY ZHOU MD Ot 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 09/10/2019 ADRY ZHOU MD Ot N18.4 CHRONIC KIDNEY DISEASE, STAGE 4 (SEVERE) 09/10/2019 ADRY ZHOU MD Ot R39.198 OTHER DIFFICULTIES WITH MICTURITION 09/24/2019 ADRY ZHOU MD Ot E10.22 TYPE 1 DIABETES MELLITUS W DIABETIC TOBACCO SIEVE OPERATOR 09/24/2019 ADRY ZHOU MD Ot G40.109 [facility] E[facility] W SIMP PRT SEIZ,NOT 09/24/2019 ADRY ZHOU MD Ot G40.909 EPILEPSY, UNSP, NOT INTRACTABLE, WITHOUT 09/24/2019 ADRY ZHOU MD Ot N04.9 NEPHROTIC SYNDROME WITH UNSPECIFIED MORP 09/24/2019 ADRY ZHOU MD Ot 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 09/24/2019 ADRY ZHOU MD Ot N18.4 CHRONIC KIDNEY DISEASE, STAGE 4 (SEVERE) 09/24/2019 ADRY ZHOU MD Ot R39.198 OTHER DIFFICULTIES WITH MICTURITION 09/30/2019 GABE RUELAS DO L Ot E10.9 TYPE 1 DIABETES MELLITUS WITHOUT COMPLIC 09/30/2019 GABE RUELAS DO L Ot E29.1 TESTICULAR HYPOFUNCTION 12/16/2019 ADRY ZHOU MD Ot E10.22 TYPE 1 DIABETES MELLITUS W DIABETIC TOBACCO SIEVE OPERATOR 12/16/2019 [facility]HOU [facility] Ot G40.109 [facility]NOT 12/16/2019 ADRY ZHOU MD Ot N18.4 CHRONIC KIDNEY DISEASE, STAGE 4 (SEVERE) 12/16/2019 ADRY ZHOU MD Ot R80.9 PROTEINURIA, UNSPECIFIED 12/16/2019 ADRY ZHOU MD Ot Z87.448 PERSONAL HISTORY OF OTHER DISEASES OF UR 12/16/2019 BLAINE HOLCOMB MD Ot G40.909 EPILEPSY, UNSP, NOT INTRACTABLE, WITHOUT 12/16/2019 BLAINE HOLCOMB MD Ot 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 12/16/2019 ADRY ZHOU MD Ot E10.9 TYPE 1 DIABETES MELLITUS WITHOUT COMPLIC 12/16/2019 ADRY ZHOU MD Ot G40.109 [facility] E[facility] W SIMP PRT SEIZ,NOT 12/16/2019 ADRY ZHOU MD Ot N04.9 NEPHROTIC SYNDROME WITH UNSPECIFIED MORP 12/16/2019 ADRY ZHOU MD Ot N18.4 CHRONIC KIDNEY DISEASE, STAGE 4 (SEVERE) 12/16/2019 ADRY ZHOU MD Ot R80.9 PROTEINURIA, UNSPECIFIED 12/16/2019 ADRY ZHOU MD, Ot Z87.448 PERSONAL HISTORY OF OTHER DISEASES OF UR 12/16/2019 JORGE L TYLER MD Ot E10.2 2 TYPE 1 DIABETES MELLITUS W DIABETIC TOBACCO SIEVE OPERATOR 12/16/2019 JORGE L TYLER MD Ot N18.4 CHRONIC KIDNEY DISEASE, STAGE 4 (SEVERE) 12/16/2019 JORGE L TYLER MD Ot R53.8 3 OTHER FATIGUE 12/16/2019 VALENTINO WILLAMS Ot R56. 9 UNSPECIFIED CONVULSIONS 12/16/2019 VALENTINO WILLAMS Ot S06.9X9A UNSP INTRACRANIAL INJURY W LOC OF UNSP D 12/16/2019 VALENTINO WILLAMS Ot W19.XXXA UNSPECIFIED FALL, INITIAL ENCOUNTER 12/16/2019 JORGE L TYLER MD Ot E10.2 2 TYPE 1 DIABETES MELLITUS W DIABETIC TOBACCO SIEVE OPERATOR 12/16/2019 JORGE L TYLER MD Ot N18.4 CHRONIC KIDNEY DISEASE, STAGE 4 (SEVERE) 12/16/2019 JORGE L TYLER MD Ot R53.8 3 OTHER FATIGUE 12/16/2019 ADRY ZHOU MD Ot E10.9 TYPE 1 DIABETES MELLITUS WITHOUT COMPLIC 12/16/2019 ADRY ZHOU MD, Ot 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,NOT 12/16/2019 ADRY ZHOU MD Ot N04.9 NEPHROTIC SYNDROME WITH UNSPECIFIED MORP 12/16/2019 ADRY ZHOU MD, Ot N18.4 CHRONIC KIDNEY DISEASE, STAGE 4 (SEVERE) 12/16/2019 ADRY ZHOU MD Ot R80.9 PROTEINURIA, UNSPECIFIED 12/16/2019 ADRY ZHOU MD Ot Z87.448 PERSONAL HISTORY OF OTHER DISEASES OF UR 12/16/2019 XI ZHOU MD Ot E10.9 TYPE 1 DIABETES MELLITUS WITHOUT COMPLIC 12/16/2019 XI ZHOU MD Ot E87.2 ACIDOSIS 12/16/2019 XI ZHOU MD S Ot 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,NOT 12/16/2019 WINNIE MAKI, XI Rahman Ot G40.909 EPILEPSY, UNSP, NOT INTRACTABLE, WITHOUT 12/16/2019 WINNIE MAKI, XI Rahman Ot N04.9 NEPHROTIC SYNDROME WITH UNSPECIFIED MORP 12/16/2019 WINNIE MAKI, XI Rahman Ot N05.9 UNSP NEPHRITIC SYNDROME WITH UNSPECIFIED 12/16/2019 WINNIE MAKI, XI S Ot N18.4 CHRONIC KIDNEY DISEASE, STAGE 4 (SEVERE) 12/16/2019 WINNIE MAKI, XI Rahman Ot R39.198 OTHER DIFFICULTIES WITH MICTURITION 12/16/2019 WINNIE MAKI, XI Rahman Ot Z87.448 PERSONAL HISTORY OF OTHER DISEASES OF UR 12/16/2019 Ot E10.9 TYPE 1 DIABETES MELLITUS WITHOUT COMPLIC 12/16/2019 Ot E87.2 ACID OSIS 12/16/2019 Ot G40.109 [facility] SYMP EPI W SIMP PRT SEIZ,NOT 12/16/2019 Ot N04.9 NEPH ROTIC SYNDROME WITH UNSPECIFIED MORP 12/16/2019 Ot 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 12/16/2019 Ot 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 KIDNEY DISEASE, STAGE 4 (SEVERE) 12/16/2019 Ot R80.9 PROT EINURIA, UNSPECIFIED 12/16/2019 Ot Z87.448 PE RSONAL HISTORY OF OTHER DISEASES OF UR 12/16/2019 SURAJ DO, GABE L Ot N18.9 CHRONIC KIDNEY DISEASE, UNSPECIFIED 12/16/2019 SURAJ DO GABE L Ot R10.9 UNSPECIFIED ABDOMINAL PAIN 12/16/2019 JORGE L TYLER MD Ot M81.0 AGE-RELATED OSTEOPOROSIS W/O CURRENT PAT 12/16/2019 JORGE L TYLER MD Ot S22.31XD FRACTURE OF ONE RIB, RIGHT SIDE, SUBS FO 12/16/2019 WINNIE MAKI, ADRY Ot E10.9 TYPE 1 DIABETES MELLITUS WITHOUT COMPLIC 12/16/2019 WINNIE MAKI, ADRY Ot E87.2 ACIDOSIS 12/16/2019 WINNIE MAKI, ADRY Ot G40.109 [facility] SYMPTC EPI W SIMP PRT SEIZ,NOT 12/16/2019 ADRY ZHOU MD Ot N04.9 NEPHROTIC SYNDROME WITH UNSPECIFIED MORP 12/16/2019 WINNIE MAKI, ADRY Ot 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 12/16/2019 WINNIE MAKI, ADRY Ot N18.4 CHRONIC KIDNEY DISEASE, STAGE 4 (SEVERE) 12/16/2019 ADRY ZHOU MD Ot R80.9 PROTEINURIA, UNSPECIFIED 12/16/2019 WINNIE MAKI, ADRY Ot Z87.448 PERSONAL HISTORY OF OTHER DISEASES OF UR 12/16/2019 GABE RUELAS DO L Ot E10.9 TYPE 1 DIABETES MELLITUS WITHOUT COMPLIC 12/16/2019 GABE RUELAS DO Ot E29.1 TESTICULAR HYPOFUNCTION 12/16/2019 ADRY ZHOU MD Ot E10.22 TYPE 1 DIABETES MELLITUS W DIABETIC TOBACCO SIEVE OPERATOR 12/16/2019 ADRY ZHOU MD Ot E87.2 ACIDOSIS 12/16/2019 ADRY ZHOU MD Ot G40.109 [facility] SY[facility] EPI W SIMP PRT SEIZ,NOT 12/16/2019 ADRY ZHOU MD Ot N04.9 NEPHROTIC SYNDROME WITH UNSPECIFIED MORP 12/16/2019 WINNIE MAKI, ADRY Ot 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 12/16/2019 WINNIE MAKI, ADRY Ot N18.4 CHRONIC KIDNEY DISEASE, STAGE 4 (SEVERE) 12/16/2019 ADRY ZHOU MD Ot R80.9 PROTEINURIA, UNSPECIFIED 12/16/2019 WINNIE MAKI, DARY Ot E10.22 TYPE 1 DIABETES MELLITUS W DIABETIC TOBACCO SIEVE OPERATOR 12/16/2019 ADRY ZHOU MD Ot E87.2 ACIDOSIS 12/16/2019 ADRY ZHOU MD Ot 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,NOT 12/16/2019 ADRY ZHOU MD Ot N04.9 NEPHROTIC SYNDROME WITH UNSPECIFIED MORP 12/16/2019 WINNIE MAKI, ADRY Ot 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 12/16/2019 ADRY ZHOU MD Ot N18.4 CHRONIC KIDNEY DISEASE, STAGE 4 (SEVERE) 12/16/2019 ADRY ZHOU MD Ot R39.198 OTHER DIFFICULTIES WITH MICTURITION 12/16/2019 ADRY ZHOU MD Ot R80.9 PROTEINURIA, UNSPECIFIED 12/16/2019 ADRY ZHOU MD Ot Z87.448 PERSONAL HISTORY OF OTHER DISEASES OF UR 12/16/2019 RUELAS DO, GABE L Ot E10.9 TYPE 1 DIABETES MELLITUS WITHOUT COMPLIC 12/16/2019 RUELAS DO, GABE L Ot E10.9 TYPE 1 DIABETES MELLITUS WITHOUT COMPLIC 12/16/2019 RUELAS DO, GABE L Ot E29.1 TESTICULAR HYPOFUNCTION 12/16/2019 ADRY ZHOU MD Ot E10.22 TYPE 1 DIABETES MELLITUS W DIABETIC TOBACCO SIEVE OPERATOR 12/16/2019 ADRY ZHOU MD Ot 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,NOT 12/16/2019 ADRY ZHOU MD Ot G40.909 EPILEPSY, UNSP, NOT INTRACTABLE, WITHOUT 12/16/2019 ADRY ZHOU MD Ot N04.9 NEPHROTIC SYNDROME WITH UNSPECIFIED MORP 12/16/2019 ADRY ZHOU MD Ot 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 12/16/2019 ADRY ZHOU MD Ot N18.4 CHRONIC KIDNEY DISEASE, STAGE 4 (SEVERE) 12/16/2019 ADRY ZHOU MD Ot R39.198 OTHER DIFFICULTIES WITH MICTURITION 12/16/2019 ADRY ZHOU MD Ot R80.9 PROTEINURIA, UNSPECIFIED 12/16/2019 ADRY ZHOU MD Ot Z87.448 PERSONAL HISTORY OF OTHER DISEASES OF UR 12/16/2019 RUELAS DO, GABE L Ot E10.9 TYPE 1 DIABETES MELLITUS WITHOUT COMPLIC 12/16/2019 RUELAS DO, GABE L Ot E29.1 TESTICULAR HYPOFUNCTION 12/16/2019 ADRY ZHOU MD Ot E10.22 TYPE 1 DIABETES MELLITUS W DIABETIC TOBACCO SIEVE OPERATOR 12/16/2019 ADRY ZHOU MD Ot 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,NOT 12/16/2019 ADRY ZHOU MD Ot G40.909 EPILEPSY, UNSP, NOT INTRACTABLE, WITHOUT 12/16/2019 WINNIE MAKI, ADRY Ot N04.9 NEPHROTIC SYNDROME WITH UNSPECIFIED MORP 12/16/2019 WINNIE MAKI, ADRY Ot 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 12/16/2019 WINNIE MAKI, ADRY Ot N18.4 CHRONIC KIDNEY DISEASE, STAGE 4 (SEVERE) 12/16/2019 WINNIE MAKI, ADRY Ot R39.198 OTHER DIFFICULTIES WITH MICTURITION 12/17/2019 ADRY ZHOU MD Ot E10.22 TYPE 1 DIABETES MELLITUS W DIABETIC TOBACCO SIEVE OPERATOR 12/17/2019 ADRY ZHOU MD Ot E87.2 ACIDOSIS 12/17/2019 ADRY ZHOU MD Ot G40.109 [facility] SYMPTC EPI W SIMP PRT SEIZ,NOT 12/17/2019 ADRY ZHOU MD Ot N04.9 NEPHROTIC SYNDROME WITH UNSPECIFIED MORP 12/17/2019 WINNIE MAKI, ADRY Ot 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 12/17/2019 WINNIE MAKI, ADRY Ot N18.4 CHRONIC KIDNEY DISEASE, STAGE 4 (SEVERE) 12/17/2019 WINNIE MAKI, ADRY Ot R39.198 OTHER DIFFICULTIES WITH MICTURITION 12/17/2019 ADRY ZHOU MD Ot R80.9 PROTEINURIA, UNSPECIFIED 12/17/2019 WINNIE MAKI, ADRY Ot Z87.448 PERSONAL HISTORY OF OTHER DISEASES OF UR 01/06/2020 ADRY ZHOU MD Ot E10.22 TYPE 1 DIABETES MELLITUS W DIABETIC TOBACCO SIEVE OPERATOR 01/06/2020 ADRY ZHOU MD Ot E87.2 ACIDOSIS 01/06/2020 ADRY ZHOU MD Ot G40.109 [facility] SYMPTC EPI W SIMP PRT SEIZ,NOT 01/06/2020 ADRY ZHOU MD Ot N04.9 NEPHROTIC SYNDROME WITH UNSPECIFIED MORP 01/06/2020 ADRY ZHOU MD Ot 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 01/06/2020 ADRY ZHOU MD Ot N18.4 CHRONIC KIDNEY DISEASE, STAGE 4 (SEVERE) 01/06/2020 ADRY ZHOU MD Ot R39.198 OTHER DIFFICULTIES WITH MICTURITION 01/06/2020 ADRY ZHOU MD Ot R80.9 PROTEINURIA, UNSPECIFIED 01/06/2020 ADRY ZHOU MD Ot Z87.448 PERSONAL HISTORY OF OTHER DISEASES OF UR 01/16/2020 ADRY ZHOU MD Ot E10.22 TYPE 1 DIABETES MELLITUS W DIABETIC TOBACCO SIEVE OPERATOR 01/16/2020 ADRY ZHOU MD Ot E87.2 ACIDOSIS 01/16/2020 ADRY ZHOU MD Ot G40.109 [facility] EPI W SIMP PRT SEIZ,NOT 01/16/2020 ADRY ZHOU MD Ot N04.9 NEPHROTIC SYNDROME WITH UNSPECIFIED MORP 01/16/2020 ADRY ZHOU MD Ot 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 Results Test Result Range - 03/20/17 09:17 Glucose, Serum 111 mg/dL 65-99 BUN 51 mg/dL 6-20 Creatinine, Serum 4.36 mg/dL 0.76-1.27 eGFR If NonAfricn Am 18 mL/min/1.73 >59 eGFR If Africn Am 20 mL/min/1.73 >59 BUN/Creatinine Ratio 12 9-20 Sodium, Serum 138 mmol/L 134-144 Potassium, Serum 5.3 mmol/L 3.5-5.2 Chloride, Serum 103 mmol/L 96-106 Carbon Dioxide, Total 15 mmol/L 18-29 Calcium, Serum 9.3 mg/dL 8.7-10.2 Protein, Total, Serum 6.4 g/dL 6.0-8.5 Albumin, Serum 4.5 g/dL 3.5-5.5 Globulin, Total 1.9 g/dL 1.5-4.5 A/G Ratio 2.4 1.2-2.2 Bilirubin, Total <0.2 mg/dL 0.0-1.2 Alkaline Phosphatase, S 87 IU/L 39-117 AST (SGOT) 17 IU/L 0-40 ALT (SGPT) 17 IU/L 0-44 CBC With Differential/Platelet - 7 09:17 WBC 9.7 x10E3/uL 3.4-10.8 RBC 4.60 x10E6/uL 4.14-5.80 Hemoglobin 13.4 g/dL 12.6-17.7 Hematocrit 39.2 % 37.5-51.0 MCV 85 fL 79-97 MCH 29.1 pg 26.6-33.0 MCHC 34.2 g/dL 31.5-35.7 RDW 13.7 % 12.3-15.4 Platelets 434 x10E3/uL 150-379 Neutrophils 74 % Lymphs 18 % Monocytes 6 % Eos 2 % Basos 0 % Neutrophils (Absolute) 7.2 x10E3/uL 1.4- 7.0 Lymphs (Absolute) 1.8 x10E3/uL 0.7-3.1 Monocytes(Absolute) 0.6 x10E3/uL 0.1-0.9 Eos (Absolute) 0.2 x10E3/uL 0.0-0.4 Baso (Absolute) 0.0 x10E3/uL 0.0-0.2 Immature Granulocytes 0 % Immature Grans (Abs) 0.0 x10E3/uL 0.0-0. 1 Comp. Metabolic Panel (14) - 03/20/17 09 :17 Glucose, Serum 111 mg/dL 65-99 BUN 51 mg/dL 6-20 Creatinine, Serum 4.36 mg/dL 0.76-1.27 eGFR If NonAfricn Am 18 mL/min/1.73 >59 eGFR If Africn Am 20 mL/min/1.73 >59 BUN/Creatinine Ratio 12 9-20 Sodium, Serum 138 mmol/L 134-144 Potassium, Serum 5.3 mmol/L 3.5-5.2 Chloride, Serum 103 mmol/L 96-106 Carbon Dioxide, Total 15 mmol/L 18-29 Calcium, Serum 9.3 mg/dL 8.7-10.2 Protein, Total, Serum 6.4 g/dL 6.0-8.5 Albumin, Serum 4.5 g/dL 3.5-5.5 Globulin, Total 1.9 g/dL 1.5-4.5 A/G Ratio 2.4 1.2-2.2 Bilirubin, Total <0.2 mg/dL 0.0-1.2 Alkaline Phosphatase, S 87 IU/L 39-117 AST (SGOT) 17 IU/L 0-40 ALT (SGPT) 17 IU/L 0-44 Lipid Panel - 03/20/17 09:17 Cholesterol, Total 232 mg/dL 100-199 Triglycerides 278 mg/dL 0-149 HDL Cholesterol 54 mg/dL >39 VLDL Cholesterol Ag 56 mg/dL 5-40 LDL Cholesterol Calc 122 mg/dL 0-99 TSH - 03/20/17 09:17 TSH 1.010 uIU/mL 0.450-4.500 RENAL PROFILE - 07/05/17 14:15 GLUCOSE 236 mg/dL 65-99 UREA NITROGEN (BUN) 49 mg/dL 7-25 CREATININE 3.58 mg/dL 0.60-1.35 eGFR NON-AFR. [place] 22 mL/min/1.73m2 > OR = 60 eGFR 26 mL/min/1.73m2 > OR = 60 BUN/CREATININE RATIO 14 (calc) 6-22 SODIUM 139 mmol/L 135-146 POTASSIUM 4.5 mmol/L 3.5-5.3 CHLORIDE 107 mmol/L 98-110 CARBON DIOXIDE 22 mmol/L 20-31 CALCIUM 9.5 mg/dL 8.6-10.3 ALBUMIN 4.2 g/dL 3.6-5.1 PHOSPHATE ( PHOSPHORUS) 2.9 mg/dL 2.5- 4.5 PROTEIN, TOTAL W/CREAT, RANDOM URINE - 1 09/04/16 14:15 CREATININE, RANDOM URINE 71 mg/dL 20-37 0 PROTEIN/CREATININE RATIO 1183 mg/g creat 22-128 PROTEIN, TOTAL, RANDOM UR 84 mg/dL 5-25 Urine protein/creatinine mass ratio - 13:45 Urine protein measurement (mass/volume) 39 mg/dL 6-12 Urine creatinine measurement (mass/volume) 51 mg/d L 30-125 Urine protein/creatinine mass ratio 0.76 NRG Complete urinalysis with reflex to cultu re - 08/01/17 13:45 Urine color determination YELLOW NRG Urine clarity determination CLEAR NR G Urine pH measurement by test strip 5 5-9 Specific gravity of urine by test strip 1.010 1.016-1.022 Urine protein assay by test strip, semi-quantitative 2+ NEGATIVE Urine glucose detection by automated test strip 4+ NEGATIVE Erythrocytes detection in urine sediment by light micr oscopy NEGATIVE NEGATIVE Urine ketones detection by automated test strip NE GATIVE NEGATIVE Urine nitrite detection by test strip NEGATIVE NEGATIVE Urine total bilirubin detection by test strip NEGA TIVE NEGATIVE Urine urobilinogen measurement by automated test strip (mass/volume) NORMAL NORMAL Urine leukocyte esterase detection by dipstick NEG ATIVE NEGATIVE Automated urine sediment erythrocyte cou nt by microscopy (number/high power field) NONE NRG Automated urine sediment leukocyte count by microscopy (number/high power field) RARE NRG Bacteria detection in urine sediment by light microsco py NEGATIVE NRG Squamous epithelial cells detection in u rine sediment by light microscopy RARE NRG Crystals detection in urine sediment by light microsco py NONE NRG Casts detection in urine sediment by light microscopy NONE NRG Mucus detection in urine sediment by light microscopy NEGATIVE NRG Complete urinalysis with reflex to culture NO NRG Automated blood complete blood count ( mogram) panel - 08/01/17 13:56 Blood leukocytes automated count (number/volume) 10.4 10*3/uL 4.3-11.0 Blood erythrocytes automated count (number/volume) 4.40 10*6/uL 4.35-5.85 Venous blood hemoglobin measurement (mass/volume) 13.2 g/dL 13.3-17.7 Blood hematocrit (volume fraction) 39 % 40-54 Automated erythrocyte mean corpuscular volume 89 [ foz_us] 80-99 Automated erythrocyte mean corpuscular h emoglobin (mass per erythrocyte) 30 pg 25-34 Automated erythrocyte mean corpuscular h emoglobin concentration measurement (mass/volume) 34 g/dL 32-36 Automated erythrocyte distribution width ratio 12. 1 % 10.0- 14.5 Automated blood platelet count (count/volume) 443 10*3/uL 130-400 Automated blood platelet mean volume measurement 9.9 [foz_us] 7.4-10.4 Serum or plasma renal function panel (Na , K, Cl, CO2, BUN, Cr, glucose,Ca, phos, alb) - 08/01/17 13:56 Serum or plasma sodium measurement (moles/volume) 140 mmol/L 135-145 Serum or plasma potassium measurement (moles/volume) 4.3 mmol/L 3.6-5.0 Serum or plasma chloride measurement (moles/volume) 110 mmol/L 98-107 Carbon dioxide 18 mmol/L 21-32 Serum or plasma anion gap determination (moles/volume) 12 mmol/L 5-14 Serum or plasma urea nitrogen measurement (mass/volume ) 49 mg/dL 7-18 Serum or plasma creatinine measurement (mass/volume) 4.01 mg/dL 0.60-1.30 Serum or plasma urea nitrogen/creatinine mass ratio 12 NRG Serum or plasma creatinine measurement w ith calculation of estimated glomerular filtration rate 18 NRG Serum or plasma glucose measurement (mass/volume) 232 mg/dL 70-105 Serum or plasma calcium measurement (mass/volume) 9.3 mg/dL 8.5-10.1 Serum or plasma albumin measurement (mass/volume) 3.9 g/dL 3.2-4.5 Serum or plasma phosphate measurement (mass/volume) 4.4 mg/dL 2.3-4.7 Serum or plasma intact pararthyroid horm one measurement (mass/volume) - 08/01/17 13:56 Serum or plasma intact parathyroid hormone measurement (mass/volume) 88.0 pg/mL 10.0-65.0 Bio-intact parathyroid hormone (PTH) measurement with calcium 9.3 % 8.5-10.5 25-hydroxyvitamin D measurement - 13:56 25-hydroxy vitamin D measurement 13 % 30-100 Automated blood complete blood count (he mogram) panel - 11/06/17 15:21 Blood leukocytes automated count (number/volume) 9.9 10*3/uL 4.3-11.0 Blood erythrocytes automated count (number/volume) 4.95 10*6/uL 4.35-5.85 Venous blood hemoglobin measurement (mass/volume) 14.7 g/dL 13.3-17.7 Blood hematocrit (volume fraction) 43 % 40-54 Automated erythrocyte mean corpuscular volume 87 [ foz_us] 80-99 Automated erythrocyte mean corpuscular h emoglobin (mass per erythrocyte) 30 pg 25-34 Automated erythrocyte mean corpuscular h emoglobin concentration measurement (mass/volume) 34 g/dL 32-36 Automated erythrocyte distribution width ratio 13. 2 % 10.0- 14.5 Automated blood platelet count (count/volume) 445 10*3/uL 130-400 Automated blood platelet mean volume measurement 9.7 [foz_us] 7.4-10.4 Comprehensive metabolic panel - 11/06/17 15:21 Serum or plasma sodium measurement (moles/volume) 137 mmol/L 135-145 Serum or plasma potassium measurement (moles/volume) 4.9 mmol/L 3.6-5.0 Serum or plasma chloride measurement (moles/volume) 110 mmol/L 98-107 Carbon dioxide 15 mmol/L 21-32 Serum or plasma anion gap determination (moles/volume) 12 mmol/L 5-14 Serum or plasma urea nitrogen measurement (mass/volume ) 64 mg/dL 7-18 Serum or plasma creatinine measurement (mass/volume) 4.72 mg/dL 0.60-1.30 Serum or plasma urea nitrogen/creatinine mass ratio 14 NRG Serum or plasma creatinine measurement w ith calculation of estimated glomerular filtration rate 15 NRG Serum or plasma glucose measurement (mass/volume) 168 mg/dL 70-105 Serum or plasma calcium measurement (mass/volume) 9.0 mg/dL 8.5-10.1 Serum or plasma total bilirubin measurement (mass/volu me) 0.4 mg/dL 0.1-1.0 Serum or plasma alkaline phosphatase wily surement (enzymatic activity/volume) 91 U/L 40-136 Serum or plasma aspartate aminotransfera se measurement (enzymatic activity/volume) 11 U/L 5-34 Serum or plasma alanine aminotransferase measurement (enzymatic activity/volume) 11 U/L 0-55 Serum or plasma protein measurement (mass/volume) 6.9 g/dL 6.4-8.2 Serum or plasma albumin measurement (mass/volume) 4.2 g/dL 3.2-4.5 LAMOTRIGINE LEVEL - 11/06/17 15:21 LAMOTRIGINE 12.9 ug/mL 2.5-15.0 Complete blood count (CBC) with automate d white blood cell (WBC) differential - 11/14/17 20:30 Blood leukocytes automated count (number/volume) 9.6 10*3/uL 4.3-11.0 Blood erythrocytes automated count (number/volume) 4.98 10*6/uL 4.35-5.85 Venous blood hemoglobin measurement (mass/volume) 14.9 g/dL 13.3-17.7 Blood hematocrit (volume fraction) 43 % 40-54 Automated erythrocyte mean corpuscular volume 86 [ foz_us] 80-99 Automated erythrocyte mean corpuscular h emoglobin (mass per erythrocyte) 30 pg 25-34 Automated erythrocyte mean corpuscular h emoglobin concentration measurement (mass/volume) 35 g/dL 32-36 Automated erythrocyte distribution width ratio 13. 1 % 10.0- 14.5 Automated blood platelet count (count/volume) 384 10*3/uL 130-400 Automated blood platelet mean volume measurement 10.0 [foz_us] 7.4-10.4 Automated blood neutrophils/100 leukocytes 52 % 42-75 Automated blood lymphocytes/100 leukocytes 26 % 12-44 Blood monocytes/100 leukocytes 7 % 0-12 Automated blood eosinophils/100 leukocytes 14 % 0-10 Automated blood basophils/100 leukocytes 1 % 0-10 Blood neutrophils automated count (number/volume) 5.0 10*3 1.8-7.8 Blood lymphocytes automated count (number/volume) 2.5 10*3 1.0-4.0 Blood monocytes automated count (number/volume) 0. 7 10*3 0.0-1.0 Automated eosinophil count 1.3 10*3/uL 0 .0-0.3 Automated blood basophil count (count/volume) 0.1 10*3/uL 0.0-0.1 Comprehensive metabolic panel - 11/14/17 20:30 Serum or plasma sodium measurement (moles/volume) 134 mmol/L 135-145 Serum or plasma potassium measurement (moles/volume) 4.5 mmol/L 3.6-5.0 Serum or plasma chloride measurement (moles/volume) 109 mmol/L 98-107 Carbon dioxide 14 mmol/L 21-32 Serum or plasma anion gap determination (moles/volume) 11 mmol/L 5-14 Serum or plasma urea nitrogen measurement (mass/volume ) 42 mg/dL 7-18 Serum or plasma creatinine measurement (mass/volume) 4.90 mg/dL 0.60-1.30 Serum or plasma urea nitrogen/creatinine mass ratio 9 NRG Serum or plasma creatinine measurement w ith calculation of estimated glomerular filtration rate 14 NRG Serum or plasma glucose measurement (mass/volume) 245 mg/dL 70-105 Serum or plasma calcium measurement (mass/volume) 9.4 mg/dL 8.5-10.1 Serum or plasma total bilirubin measurement (mass/volu me) 0.3 mg/dL 0.1-1.0 Serum or plasma alkaline phosphatase wily surement (enzymatic activity/volume) 83 U/L 40-136 Serum or plasma aspartate aminotransfera se measurement (enzymatic activity/volume) 14 U/L 5-34 Serum or plasma alanine aminotransferase measurement (enzymatic activity/volume) 15 U/L 0-55 Serum or plasma protein measurement (mass/volume) 6.5 g/dL 6.4-8.2 Serum or plasma albumin measurement (mass/volume) 4.1 g/dL 3.2-4.5 Blood manual differential performed dete ction - 11/14/17 20:30 Blood monocytes/100 leukocytes 5 % NRG Manual blood segmented neutrophils/100 leukocytes 45 % NRG Blood band neutrophils/100 leukocytes 2 % NRG Manual blood lymphocytes/100 leukocytes 28 % NRG Manual eosinophils/100 leukocytes in nose 18 % NRG Manual blood basophils/100 leukocytes 2 % NRG Blood erythrocyte morphology finding identification NORMAL NRG Serum or plasma thyroxine (T4) free torito urement (mass/volume) - 11/14/17 20:30 Serum or plasma thyroxine (T4) free measurement (mass/ volume) 1.32 ng/dL 0.70-1.48 Serum or plasma thyrotropin measurement by detection limit <=0.05 miu/l (units/volume) - 11/14/17 20:30 Serum or plasma thyrotropin measurement by detection limit <=0.05 miu/l (units/volume) 0.98 u[iU]/mL 0.35-4.94 LAMOTRIGINE LEVEL - 11/14/17 20:30 LAMOTRIGINE 12.2 % 2.5-15.0 Complete urinalysis with reflex to cultu re - 11/14/17 20:36 Urine color determination YELLOW NRG Urine clarity determination CLEAR NR G Urine pH measurement by test strip 5 5-9 Specific gravity of urine by test strip 1.015 1.016-1.022 Urine protein assay by test strip, semi-quantitative 3+ NEGATIVE Urine glucose detection by automated test strip 4+ NEGATIVE Erythrocytes detection in urine sediment by light micr oscopy 1+ NEGATIVE Urine ketones detection by automated test strip NE GATIVE NEGATIVE Urine nitrite detection by test strip NEGATIVE NEGATIVE Urine total bilirubin detection by test strip NEGA TIVE NEGATIVE Urine urobilinogen measurement by automated test strip (mass/volume) NORMAL NORMAL Urine leukocyte esterase detection by dipstick NEG ATIVE NEGATIVE Automated urine sediment erythrocyte cou nt by microscopy (number/high power field) [HPF] NRG Automated urine sediment leukocyte count by microscopy (number/high power field) RARE NRG Bacteria detection in urine sediment by light microsco py NONE NRG Squamous epithelial cells detection in u rine sediment by light microscopy 0-2 NRG Crystals detection in urine sediment by light microsco py NONE NRG Casts detection in urine sediment by light microscopy NONE NRG Mucus detection in urine sediment by light microscopy NEGATIVE NRG Complete urinalysis with reflex to culture NO NRG Automated blood complete blood count (he mogram) panel - 11/22/17 18:05 Blood leukocytes automated count (number/volume) 13.3 10*3/uL 4.3-11.0 Blood erythrocytes automated count (number/volume) 4.61 10*6/uL 4.35-5.85 Venous blood hemoglobin measurement (mass/volume) 13.8 g/dL 13.3-17.7 Blood hematocrit (volume fraction) 41 % 40-54 Automated erythrocyte mean corpuscular volume 88 [ foz_us] 80-99 Automated erythrocyte mean corpuscular h emoglobin (mass per erythrocyte) 30 pg 25-34 Automated erythrocyte mean corpuscular h emoglobin concentration measurement (mass/volume) 34 g/dL 32-36 Automated erythrocyte distribution width ratio 13. 0 % 10.0- 14.5 Automated blood platelet count (count/volume) 521 10*3/uL 130-400 Automated blood platelet mean volume measurement 9.6 [foz_us] 7.4-10.4 Urine protein/creatinine mass ratio - 18:09 Urine protein measurement (mass/volume) 147 mg/dL 6-12 Urine creatinine measurement (mass/volume) 114 mg/ dL 30-125 Urine protein/creatinine mass ratio 1.29 NRG Serum or plasma renal function panel (Na , K, Cl, CO2, BUN, Cr, glucose,Ca, phos, alb) - 11/22/17 18:09 Serum or plasma sodium measurement (moles/volume) 138 mmol/L 135-145 Serum or plasma potassium measurement (moles/volume) 4.7 mmol/L 3.6-5.0 Serum or plasma chloride measurement (moles/volume) 109 mmol/L 98-107 Carbon dioxide 21 mmol/L 21-32 Serum or plasma anion gap determination (moles/volume) 8 mmol/L 5-14 Serum or plasma urea nitrogen measurement (mass/volume ) 42 mg/dL 7-18 Serum or plasma creatinine measurement (mass/volume) 4.56 mg/dL 0.60-1.30 Serum or plasma urea nitrogen/creatinine mass ratio 9 NRG Serum or plasma creatinine measurement w ith calculation of estimated glomerular filtration rate 16 NRG Serum or plasma glucose measurement (mass/volume) 235 mg/dL 70-105 Serum or plasma calcium measurement (mass/volume) 9.6 mg/dL 8.5-10.1 Serum or plasma albumin measurement (mass/volume) 4.1 g/dL 3.2-4.5 Serum or plasma phosphate measurement (mass/volume) 3.3 mg/dL 2.3-4.7 Serum or plasma intact pararthyroid horm one measurement (mass/volume) - 11/22/17 18:09 Serum or plasma intact parathyroid hormone measurement (mass/volume) 66.0 pg/mL 10.0-65.0 Bio-intact parathyroid hormone (PTH) measurement with calcium 9.6 % 8.5-10.5 VITAMIN D 25-HYDROXY - 11/22/17 18:09 VITAMIN D 25-HYDROXY (TOTAL) 9 % 3 0-100 Complete blood count (CBC) with automate d white blood cell (WBC) differential - 12/04/17 17:35 Blood leukocytes automated count (number/volume) 9.6 10*3/uL 4.3-11.0 Blood erythrocytes automated count (number/volume) 4.72 10*6/uL 4.35-5.85 Venous blood hemoglobin measurement (mass/volume) 14.1 g/dL 13.3-17.7 Blood hematocrit (volume fraction) 42 % 40-54 Automated erythrocyte mean corpuscular volume 88 [ foz_us] 80-99 Automated erythrocyte mean corpuscular h emoglobin (mass per erythrocyte) 30 pg 25-34 Automated erythrocyte mean corpuscular h emoglobin concentration measurement (mass/volume) 34 g/dL 32-36 Automated erythrocyte distribution width ratio 13. 4 % 10.0- 14.5 Automated blood platelet count (count/volume) 417 10*3/uL 130-400 Automated blood platelet mean volume measurement 10.0 [foz_us] 7.4-10.4 Automated blood neutrophils/100 leukocytes 52 % 42-75 Automated blood lymphocytes/100 leukocytes 28 % 12-44 Blood monocytes/100 leukocytes 10 % 0-12 Automated blood eosinophils/100 leukocytes 9 % 0-10 Automated blood basophils/100 leukocytes 1 % 0-10 Blood neutrophils automated count (number/volume) 5.0 10*3 1.8-7.8 Blood lymphocytes automated count (number/volume) 2.7 10*3 1.0-4.0 Blood monocytes automated count (number/volume) 0. 9 10*3 0.0-1.0 Automated eosinophil count 0.9 10*3/uL 0 .0-0.3 Automated blood basophil count (count/volume) 0.1 10*3/uL 0.0-0.1 Blood lactic acid measurement (moles/vol ume) - 12/04/17 17:35 Blood lactic acid measurement (moles/volume) 1.21 mmol/L 0.50-2.00 Comprehensive metabolic panel - 12/04/17 17:35 Serum or plasma sodium measurement (moles/volume) 138 mmol/L 135-145 Serum or plasma potassium measurement (moles/volume) 4.3 mmol/L 3.6-5.0 Serum or plasma chloride measurement (moles/volume) 106 mmol/L 98-107 Carbon dioxide 17 mmol/L 21-32 Serum or plasma anion gap determination (moles/volume) 15 mmol/L 5-14 Serum or plasma urea nitrogen measurement (mass/volume ) 38 mg/dL 7-18 Serum or plasma creatinine measurement (mass/volume) 3.97 mg/dL 0.60-1.30 Serum or plasma urea nitrogen/creatinine mass ratio 10 NRG Serum or plasma creatinine measurement w ith calculation of estimated glomerular filtration rate 18 NRG Serum or plasma glucose measurement (mass/volume) 198 mg/dL 70-105 Serum or plasma calcium measurement (mass/volume) 9.4 mg/dL 8.5-10.1 Serum or plasma total bilirubin measurement (mass/volu me) 0.4 mg/dL 0.1-1.0 Serum or plasma alkaline phosphatase wily surement (enzymatic activity/volume) 76 U/L 40-136 Serum or plasma aspartate aminotransfera se measurement (enzymatic activity/volume) 15 U/L 5-34 Serum or plasma alanine aminotransferase measurement (enzymatic activity/volume) 17 U/L 0-55 Serum or plasma protein measurement (mass/volume) 6.6 g/dL 6.4-8.2 Serum or plasma albumin measurement (mass/volume) 4.2 g/dL 3.2-4.5 Serum or plasma phosphate measurement (m ass/volume) - 12/04/17 17:35 Serum or plasma phosphate measurement (mass/volume) 3.5 mg/dL 2.3-4.7 Magnesium - 12/04/17 17:35 Magnesium 1.8 mg/dL 1.8-2.4 Urine protein/creatinine mass ratio - 12:03 Urine protein measurement (mass/volume) 47 mg/dL 6-12 Urine creatinine measurement (mass/volume) 63 mg/d L 30-125 Urine protein/creatinine mass ratio 0.75 NRG Automated blood complete blood count (he mogram) panel - 01/31/18 12:05 Blood leukocytes automated count (number/volume) 9.8 10*3/uL 4.3-11.0 Blood erythrocytes automated count (number/volume) 4.32 10*6/uL 4.35-5.85 Venous blood hemoglobin measurement (mass/volume) 12.9 g/dL 13.3-17.7 Blood hematocrit (volume fraction) 39 % 40-54 Automated erythrocyte mean corpuscular volume 89 [ foz_us] 80-99 Automated erythrocyte mean corpuscular h emoglobin (mass per erythrocyte) 30 pg 25-34 Automated erythrocyte mean corpuscular h emoglobin concentration measurement (mass/volume) 33 g/dL 32-36 Automated erythrocyte distribution width ratio 13. 5 % 10.0- 14.5 Automated blood platelet count (count/volume) 392 10*3/uL 130-400 Automated blood platelet mean volume measurement 9.8 [foz_us] 7.4-10.4 Automated blood complete blood count (he mogram) panel - 01/31/18 12:05 Blood leukocytes automated count (number/volume) 9.5 10*3/uL 4.3-11.0 Blood erythrocytes automated count (number/volume) 4.31 10*6/uL 4.35-5.85 Venous blood hemoglobin measurement (mass/volume) 13.0 g/dL 13.3-17.7 Blood hematocrit (volume fraction) 39 % 40-54 Automated erythrocyte mean corpuscular volume 89 [ foz_us] 80-99 Automated erythrocyte mean corpuscular h emoglobin (mass per erythrocyte) 30 pg 25-34 Automated erythrocyte mean corpuscular h emoglobin concentration measurement (mass/volume) 34 g/dL 32-36 Automated erythrocyte distribution width ratio 13. 5 % 10.0- 14.5 Automated blood platelet count (count/volume) 391 10*3/uL 130-400 Automated blood platelet mean volume measurement 9.8 [foz_us] 7.4-10.4 Blood lactic acid measurement (moles/vol ume) - 01/31/18 12:05 Blood lactic acid measurement (moles/volume) 1.58 mmol/L 0.50-2.00 Serum or plasma renal function panel (Na , K, Cl, CO2, BUN, Cr, glucose,Ca, phos, alb) - 01/31/18 12:05 Serum or plasma sodium measurement (moles/volume) 139 mmol/L 135-145 Serum or plasma potassium measurement (moles/volume) 3.9 mmol/L 3.6-5.0 Serum or plasma chloride measurement (moles/volume) 104 mmol/L 98-107 Carbon dioxide 21 mmol/L 21-32 Serum or plasma anion gap determination (moles/volume) 14 mmol/L 5-14 Serum or plasma urea nitrogen measurement (mass/volume ) 34 mg/dL 7-18 Serum or plasma creatinine measurement (mass/volume) 4.72 mg/dL 0.60-1.30 Serum or plasma urea nitrogen/creatinine mass ratio 7 NRG Serum or plasma creatinine measurement w ith calculation of estimated glomerular filtration rate 15 NRG Serum or plasma glucose measurement (mass/volume) 381 mg/dL 70-105 Serum or plasma calcium measurement (mass/volume) 8.8 mg/dL 8.5-10.1 Serum or plasma albumin measurement (mass/volume) 4.0 g/dL 3.2-4.5 Serum or plasma phosphate measurement (mass/volume) 4.1 mg/dL 2.3-4.7 Comprehensive metabolic panel - 01/31/18 12:05 Serum or plasma sodium measurement (moles/volume) 140 mmol/L 135-145 Serum or plasma potassium measurement (moles/volume) 3.9 mmol/L 3.6-5.0 Serum or plasma chloride measurement (moles/volume) 104 mmol/L 98-107 Carbon dioxide 22 mmol/L 21-32 Serum or plasma anion gap determination (moles/volume) 14 mmol/L 5-14 Serum or plasma urea nitrogen measurement (mass/volume ) 34 mg/dL 7-18 Serum or plasma creatinine measurement (mass/volume) 4.70 mg/dL 0.60-1.30 Serum or plasma urea nitrogen/creatinine mass ratio 7 NRG Serum or plasma creatinine measurement w ith calculation of estimated glomerular filtration rate 15 NRG Serum or plasma glucose measurement (mass/volume) 379 mg/dL 70-105 Serum or plasma calcium measurement (mass/volume) 8.7 mg/dL 8.5-10.1 Serum or plasma total bilirubin measurement (mass/volu me) 0.3 mg/dL 0.1-1.0 Serum or plasma alkaline phosphatase wily surement (enzymatic activity/volume) 88 U/L 40-136 Serum or plasma aspartate aminotransfera se measurement (enzymatic activity/volume) 12 U/L 5-34 Serum or plasma alanine aminotransferase measurement (enzymatic activity/volume) 14 U/L 0-55 Serum or plasma protein measurement (mass/volume) 6.5 g/dL 6.4-8.2 Serum or plasma albumin measurement (mass/volume) 4.1 g/dL 3.2-4.5 Serum or plasma phosphate measurement (m ass/volume) - 01/31/18 12:05 Serum or plasma phosphate measurement (mass/volume) 4.1 mg/dL 2.3-4.7 Magnesium - 01/31/18 12:05 Magnesium 1.7 mg/dL 1.8-2.4 Serum or plasma intact pararthyroid horm one measurement (mass/volume) - 01/31/18 12:05 Serum or plasma intact parathyroid hormone measurement (mass/volume) 308.8 pg/mL 9.0-77.0 Bio-intact parathyroid hormone (PTH) measurement with calcium 8.5 % 8.5-10.5 VITAMIN D 25-HYDROXY - 01/31/18 12:05 VITAMIN D 25-HYDROXY (TOTAL) 13.8 % 3 0.0-100.0 Complete blood count (CBC) with automate d white blood cell (WBC) differential - 04/30/18 14:00 Blood leukocytes automated count (number/volume) 16.1 10*3/uL 4.3-11.0 Blood erythrocytes automated count (number/volume) 4.34 10*6/uL 4.35-5.85 Venous blood hemoglobin measurement (mass/volume) 12.9 g/dL 13.3-17.7 Blood hematocrit (volume fraction) 37 % 40-54 Automated erythrocyte mean corpuscular volume 85 [ foz_us] 80-99 Automated erythrocyte mean corpuscular h emoglobin (mass per erythrocyte) 30 pg 25-34 Automated erythrocyte mean corpuscular h emoglobin concentration measurement (mass/volume) 35 g/dL 32-36 Automated erythrocyte distribution width ratio 13. 9 % 10.0- 14.5 Automated blood platelet count (count/volume) 323 10*3/uL 130-400 Automated blood platelet mean volume measurement 9.6 [foz_us] 7.4-10.4 Automated blood neutrophils/100 leukocytes 73 % 42-75 Automated blood lymphocytes/100 leukocytes 15 % 12-44 Blood monocytes/100 leukocytes 9 % 0-12 Automated blood eosinophils/100 leukocytes 4 % 0-10 Automated blood basophils/100 leukocytes 0 % 0-10 Blood neutrophils automated count (number/volume) 11.7 10*3 1.8-7.8 Blood lymphocytes automated count (number/volume) 2.4 10*3 1.0-4.0 Blood monocytes automated count (number/volume) 1. 4 10*3 0.0-1.0 Automated eosinophil count 0.6 10*3/uL 0 .0-0.3 Automated blood basophil count (count/volume) 0.1 10*3/uL 0.0-0.1 Comprehensive metabolic panel - 04/30/18 14:00 Serum or plasma sodium measurement (moles/volume) 142 mmol/L 135-145 Serum or plasma potassium measurement (moles/volume) 3.1 mmol/L 3.6-5.0 Serum or plasma chloride measurement (moles/volume) 102 mmol/L 98-107 Carbon dioxide 23 mmol/L 21-32 Serum or plasma anion gap determination (moles/volume) 17 mmol/L 5-14 Serum or plasma urea nitrogen measurement (mass/volume ) 18 mg/dL 7-18 Serum or plasma creatinine measurement (mass/volume) 4.09 mg/dL 0.60-1.30 Serum or plasma urea nitrogen/creatinine mass ratio 4 NRG Serum or plasma creatinine measurement w ith calculation of estimated glomerular filtration rate 18 NRG Serum or plasma glucose measurement (mass/volume) 91 mg/dL 70-105 Serum or plasma calcium measurement (mass/volume) 9.2 mg/dL 8.5-10.1 Serum or plasma total bilirubin measurement (mass/volu me) 0.5 mg/dL 0.1-1.0 Serum or plasma alkaline phosphatase wily surement (enzymatic activity/volume) 72 U/L 40-136 Serum or plasma aspartate aminotransfera se measurement (enzymatic activity/volume) 15 U/L 5-34 Serum or plasma alanine aminotransferase measurement (enzymatic activity/volume) 12 U/L 0-55 Serum or plasma protein measurement (mass/volume) 6.5 g/dL 6.4-8.2 Serum or plasma albumin measurement (mass/volume) 4.3 g/dL 3.2-4.5 CALCIUM CORRECTED 9.0 mg/dL 8.5-10.1 Magnesium - 04/30/18 14:00 Magnesium 1.7 mg/dL 1.8-2.4 Blood manual differential performed dete ction - 04/30/18 14:00 Blood monocytes/100 leukocytes 6 % NRG Manual blood segmented neutrophils/100 leukocytes 78 % NRG Blood band neutrophils/100 leukocytes 0 % NRG Manual blood lymphocytes/100 leukocytes 14 % NRG Manual eosinophils/100 leukocytes in nose 2 % NRG Manual blood basophils/100 leukocytes 0 % NRG Blood erythrocyte morphology finding identification NORMAL NRG Automated blood complete blood count (he mogram) panel - 07/09/18 17:48 Blood leukocytes automated count (number/volume) 7.4 10*3/uL 4.3-11.0 Blood erythrocytes automated count (number/volume) 4.75 10*6/uL 4.35-5.85 Venous blood hemoglobin measurement (mass/volume) 13.9 g/dL 13.3-17.7 Blood hematocrit (volume fraction) 42 % 40-54 Automated erythrocyte mean corpuscular volume 87 [ foz_us] 80-99 Automated erythrocyte mean corpuscular h emoglobin (mass per erythrocyte) 29 pg 25-34 Automated erythrocyte mean corpuscular h emoglobin concentration measurement (mass/volume) 34 g/dL 32-36 Automated erythrocyte distribution width ratio 14. 0 % 10.0- 14.5 Automated blood platelet count (count/volume) 376 10*3/uL 130-400 Automated blood platelet mean volume measurement 9.4 [foz_us] 7.4-10.4 Serum or plasma renal function panel (Na , K, Cl, CO2, BUN, Cr, glucose,Ca, phos, alb) - 07/09/18 17:48 Serum or plasma sodium measurement (moles/volume) 142 mmol/L 135-145 Serum or plasma potassium measurement (moles/volume) 4.3 mmol/L 3.6-5.0 Serum or plasma chloride measurement (moles/volume) 111 mmol/L 98-107 Carbon dioxide 18 mmol/L 21-32 Serum or plasma anion gap determination (moles/volume) 13 mmol/L 5-14 Serum or plasma urea nitrogen measurement (mass/volume ) 38 mg/dL 7-18 Serum or plasma creatinine measurement (mass/volume) 3.22 mg/dL 0.60-1.30 Serum or plasma urea nitrogen/creatinine mass ratio 12 NRG Serum or plasma creatinine measurement w ith calculation of estimated glomerular filtration rate 23 NRG Serum or plasma glucose measurement (mass/volume) 143 mg/dL 70-105 Serum or plasma calcium measurement (mass/volume) 9.4 mg/dL 8.5-10.1 Serum or plasma albumin measurement (mass/volume) 4.1 g/dL 3.2-4.5 Serum or plasma phosphate measurement (mass/volume) 5.1 mg/dL 2.3-4.7 Serum or plasma uric acid measurement (m ass/volume) - 07/09/18 17:48 Serum or plasma uric acid measurement (mass/volume) 9.5 mg/dL 2.6-7.2 Serum or plasma intact pararthyroid horm one measurement (mass/volume) - 07/09/18 17:48 Serum or plasma intact parathyroid hormone measurement (mass/volume) 242.4 pg/mL 9.0-77.0 Bio-intact parathyroid hormone (PTH) measurement with calcium 9.5 % 8.5-10.5 VITAMIN D 25-HYDROXY - 07/09/18 17:48 VITAMIN D 25-HYDROXY (TOTAL) 29.5 % 3 0.0-100.0 Complete urinalysis with reflex to cultu re - 07/09/18 17:50 Urine color determination YELLOW NRG Urine clarity determination CLEAR NR G Urine pH measurement by test strip 6.5 5-9 Specific gravity of urine by test strip 1.015 1.016-1.022 Urine protein assay by test strip, semi-quantitative 3+ NEGATIVE Urine glucose detection by automated test strip 1+ NEGATIVE Erythrocytes detection in urine sediment by light micr oscopy NEGATIVE NEGATIVE Urine ketones detection by automated test strip NE GATIVE NEGATIVE Urine nitrite detection by test strip NEGATIVE NEGATIVE Urine total bilirubin detection by test strip NEGA TIVE NEGATIVE Urine urobilinogen measurement by automated test strip (mass/volume) NORMAL NORMAL Urine leukocyte esterase detection by dipstick NEG ATIVE NEGATIVE Automated urine sediment erythrocyte cou nt by microscopy (number/high power field) NONE NRG Automated urine sediment leukocyte count by microscopy (number/high power field) RARE NRG Bacteria detection in urine sediment by light microsco py NEGATIVE NRG Crystals detection in urine sediment by light microsco py NONE NRG Casts detection in urine sediment by light microscopy NONE NRG Mucus detection in urine sediment by light microscopy NEGATIVE NRG Complete urinalysis with reflex to culture NO NRG Urine protein/creatinine mass ratio - 17:50 Urine protein measurement (mass/volume) 41 mg/dL 6-12 Urine creatinine measurement (mass/volume) 81 mg/d L 30-125 Urine protein/creatinine mass ratio 0.51 NRG Automated blood complete blood count (he mogram) panel - 10/31/18 12:35 Blood leukocytes automated count (number/volume) 7.8 10*3/uL 4.3-11.0 Blood erythrocytes automated count (number/volume) 4.72 10*6/uL 4.35-5.85 Venous blood hemoglobin measurement (mass/volume) 13.9 g/dL 13.3-17.7 Blood hematocrit (volume fraction) 40 % 40-54 Automated erythrocyte mean corpuscular volume 86 [ foz_us] 80-99 Automated erythrocyte mean corpuscular h emoglobin (mass per erythrocyte) 29 pg 25-34 Automated erythrocyte mean corpuscular h emoglobin concentration measurement (mass/volume) 34 g/dL 32-36 Automated erythrocyte distribution width ratio 14. 2 % 10.0- 14.5 Automated blood platelet count (count/volume) 428 10*3/uL 130-400 Automated blood platelet mean volume measurement 9.9 [foz_us] 7.4-10.4 Serum or plasma renal function panel (Na , K, Cl, CO2, BUN, Cr, glucose,Ca, phos, alb) - 10/31/18 12:35 Serum or plasma sodium measurement (moles/volume) 138 mmol/L 135-145 Serum or plasma potassium measurement (moles/volume) 4.4 mmol/L 3.6-5.0 Serum or plasma chloride measurement (moles/volume) 107 mmol/L 98-107 Carbon dioxide 16 mmol/L 21-32 Serum or plasma anion gap determination (moles/volume) 15 mmol/L 5-14 Serum or plasma urea nitrogen measurement (mass/volume ) 61 mg/dL 7-18 Serum or plasma creatinine measurement (mass/volume) 4.03 mg/dL 0.60-1.30 Serum or plasma urea nitrogen/creatinine mass ratio 15 NRG Serum or plasma creatinine measurement w ith calculation of estimated glomerular filtration rate 18 NRG Serum or plasma glucose measurement (mass/volume) 167 mg/dL 70-105 Serum or plasma calcium measurement (mass/volume) 9.4 mg/dL 8.5-10.1 Serum or plasma albumin measurement (mass/volume) 4.6 g/dL 3.2-4.5 Serum or plasma phosphate measurement (mass/volume) 5.1 mg/dL 2.3-4.7 Serum or plasma uric acid measurement (m ass/volume) - 10/31/18 12:35 Serum or plasma uric acid measurement (mass/volume) 10.2 mg/dL 2.6-7.2 Serum or plasma intact pararthyroid horm one measurement (mass/volume) - 10/31/18 12:35 Serum or plasma intact parathyroid hormone measurement (mass/volume) 252.8 pg/mL 9.0-77.0 Bio-intact parathyroid hormone (PTH) measurement with calcium 9.2 % 8.5-10.5 VITAMIN D 25-HYDROXY - 10/31/18 12:35 VITAMIN D 25-HYDROXY (TOTAL) 59.1 % 3 0.0-100.0 Complete urinalysis with reflex to cultu re - 10/31/18 12:40 Urine color determination YELLOW NRG Urine clarity determination CLEAR NR G Urine pH measurement by test strip 5 5-9 Specific gravity of urine by test strip 1.015 1.016-1.022 Urine protein assay by test strip, semi-quantitative 2+ NEGATIVE Urine glucose detection by automated test strip 4+ NEGATIVE Erythrocytes detection in urine sediment by light micr oscopy NEGATIVE NEGATIVE Urine ketones detection by automated test strip 1+ NEGATIVE Urine nitrite detection by test strip NEGATIVE NEGATIVE Urine total bilirubin detection by test strip NEGA TIVE NEGATIVE Urine urobilinogen measurement by automated test strip (mass/volume) NORMAL NORMAL Urine leukocyte esterase detection by dipstick NEG ATIVE NEGATIVE Automated urine sediment erythrocyte cou nt by microscopy (number/high power field) RARE NRG Automated urine sediment leukocyte count by microscopy (number/high power field) NONE NRG Bacteria detection in urine sediment by light microsco py NEGATIVE NRG Squamous epithelial cells detection in u rine sediment by light microscopy RARE NRG Crystals detection in urine sediment by light microsco py NONE NRG Casts detection in urine sediment by light microscopy NONE NRG Mucus detection in urine sediment by light microscopy NEGATIVE NRG Complete urinalysis with reflex to culture NO NRG Urine protein/creatinine mass ratio - 12:40 Urine protein measurement (mass/volume) 28 mg/dL 6-12 Urine creatinine measurement (mass/volume) 96 mg/d L 30-125 Urine protein/creatinine mass ratio 0.29 NRG Automated blood complete blood count (he mogram) panel - 01/02/19 17:50 Blood leukocytes automated count (number/volume) 7.7 10*3/uL 4.3-11.0 Blood erythrocytes automated count (number/volume) 4.42 10*6/uL 4.35-5.85 Venous blood hemoglobin measurement (mass/volume) 13.1 g/dL 13.3-17.7 Blood hematocrit (volume fraction) 39 % 40-54 Automated erythrocyte mean corpuscular volume 89 [ foz_us] 80-99 Automated erythrocyte mean corpuscular h emoglobin (mass per erythrocyte) 30 pg 25-34 Automated erythrocyte mean corpuscular h emoglobin concentration measurement (mass/volume) 33 g/dL 32-36 Automated erythrocyte distribution width ratio 14. 2 % 10.0- 14.5 Automated blood platelet count (count/volume) 338 10*3/uL 130-400 Automated blood platelet mean volume measurement 9.9 [foz_us] 7.4-10.4 Serum or plasma renal function panel (Na , K, Cl, CO2, BUN, Cr, glucose,Ca, phos, alb) - 01/02/19 17:50 Serum or plasma sodium measurement (moles/volume) 141 mmol/L 135-145 Serum or plasma potassium measurement (moles/volume) 4.2 mmol/L 3.6-5.0 Serum or plasma chloride measurement (moles/volume) 110 mmol/L 98-107 Carbon dioxide 18 mmol/L 21-32 Serum or plasma anion gap determination (moles/volume) 13 mmol/L 5-14 Serum or plasma urea nitrogen measurement (mass/volume ) 50 mg/dL 7-18 Serum or plasma creatinine measurement (mass/volume) 4.33 mg/dL 0.60-1.30 Serum or plasma urea nitrogen/creatinine mass ratio 12 NRG Serum or plasma creatinine measurement w ith calculation of estimated glomerular filtration rate 17 NRG Serum or plasma glucose measurement (mass/volume) 156 mg/dL 70-105 Serum or plasma calcium measurement (mass/volume) 9.5 mg/dL 8.5-10.1 Serum or plasma albumin measurement (mass/volume) 4.2 g/dL 3.2-4.5 Serum or plasma phosphate measurement (mass/volume) 3.7 mg/dL 2.3-4.7 Serum or plasma uric acid measurement (m ass/volume) - 01/02/19 17:50 Serum or plasma uric acid measurement (mass/volume) 8.5 mg/dL 2.6-7.2 Serum or plasma intact pararthyroid horm one measurement (mass/volume) - 01/02/19 17:50 Serum or plasma intact parathyroid hormone measurement (mass/volume) 116.7 pg/mL 9.0-77.0 Bio-intact parathyroid hormone (PTH) measurement with calcium 9.4 % 8.5-10.5 VITAMIN D 25-HYDROXY - 01/02/19 17:50 VITAMIN D 25-HYDROXY (TOTAL) 37.4 % 3 0.0-100.0 Complete urinalysis with reflex to cultu re - 01/02/19 17:59 Urine color determination YELLOW NRG Urine clarity determination CLEAR NR G Urine pH measurement by test strip 5 5-9 Specific gravity of urine by test strip 1.010 1.016-1.022 Urine protein assay by test strip, semi-quantitative 2+ NEGATIVE Urine glucose detection by automated test strip 3+ NEGATIVE Erythrocytes detection in urine sediment by light micr oscopy NEGATIVE NEGATIVE Urine ketones detection by automated test strip NE GATIVE NEGATIVE Urine nitrite detection by test strip NEGATIVE NEGATIVE Urine total bilirubin detection by test strip NEGA TIVE NEGATIVE Urine urobilinogen measurement by automated test strip (mass/volume) NORMAL NORMAL Urine leukocyte esterase detection by dipstick NEG ATIVE NEGATIVE Automated urine sediment erythrocyte cou nt by microscopy (number/high power field) NONE NRG Automated urine sediment leukocyte count by microscopy (number/high power field) NONE NRG Bacteria detection in urine sediment by light microsco py NONE NRG Squamous epithelial cells detection in u rine sediment by light microscopy RARE NRG Crystals detection in urine sediment by light microsco py NONE NRG Casts detection in urine sediment by light microscopy NONE NRG Mucus detection in urine sediment by light microscopy NEGATIVE NRG Complete urinalysis with reflex to culture NO NRG Urine protein/creatinine mass ratio - 17:59 Urine protein measurement (mass/volume) 22 mg/dL 6-12 Urine creatinine measurement (mass/volume) 87 mg/d L 30-125 Urine protein/creatinine mass ratio 0.25 NRG Automated blood complete blood count ( mogram) panel - 01/06/19 17:53 Blood leukocytes automated count (number/volume) 9.0 10*3/uL 4.3-11.0 Blood erythrocytes automated count (number/volume) 4.12 10*6/uL 4.35-5.85 Venous blood hemoglobin measurement (mass/volume) 12.1 g/dL 13.3-17.7 Blood hematocrit (volume fraction) 36 % 40-54 Automated erythrocyte mean corpuscular volume 87 [ foz_us] 80-99 Automated erythrocyte mean corpuscular h emoglobin (mass per erythrocyte) 29 pg 25-34 Automated erythrocyte mean corpuscular h emoglobin concentration measurement (mass/volume) 34 g/dL 32-36 Automated erythrocyte distribution width ratio 14. 1 % 10.0- 14.5 Automated blood platelet count (count/volume) 375 10*3/uL 130-400 Automated blood platelet mean volume measurement 9.6 [foz_us] 7.4-10.4 THYROID STIMULATING HORMONE - 01/06/19 1 7:53 THYROID STIMULATING HORMONE 1.18 u[iU]/mL 0.35-4.94 TESTOSTERONE FREE TOTAL MALE - 01/06/19 17:53 Testosterone free [mass or moles/volume] in serum or p lasma 60.0 pg/mL 47.0-244.0 Serum ragweed IgE antibody assay 422.6 % 300.0-1080.0 Complete blood count (CBC) with automate d white blood cell (WBC) differential - 05/06/19 19:15 Blood leukocytes automated count (number/volume) 7.8 10*3/uL 4.3-11.0 Blood erythrocytes automated count (number/volume) 4.23 10*6/uL 4.35-5.85 Venous blood hemoglobin measurement (mass/volume) 12.5 g/dL 13.3-17.7 Blood hematocrit (volume fraction) 37 % 40-54 Automated erythrocyte mean corpuscular volume 87 [ foz_us] 80-99 Automated erythrocyte mean corpuscular h emoglobin (mass per erythrocyte) 30 pg 25-34 Automated erythrocyte mean corpuscular h emoglobin concentration measurement (mass/volume) 34 g/dL 32-36 Automated erythrocyte distribution width ratio 13. 8 % 10.0- 14.5 Automated blood platelet count (count/volume) 355 10*3/uL 130-400 Automated blood platelet mean volume measurement 9.7 [foz_us] 7.4-10.4 Automated blood neutrophils/100 leukocytes 53 % 42-75 Automated blood lymphocytes/100 leukocytes 30 % 12-44 Blood monocytes/100 leukocytes 8 % 0-12 Automated blood eosinophils/100 leukocytes 9 % 0-10 Automated blood basophils/100 leukocytes 1 % 0-10 Blood neutrophils automated count (number/volume) 4.1 10*3 1.8-7.8 Blood lymphocytes automated count (number/volume) 2.3 10*3 1.0-4.0 Blood monocytes automated count (number/volume) 0. 7 10*3 0.0-1.0 Automated eosinophil count 0.7 10*3/uL 0 .0-0.3 Automated blood basophil count (count/volume) 0.1 10*3/uL 0.0-0.1 Serum or plasma testosterone measurement (mass/volume) - 05/06/19 19:15 TESTOSTERONE TOTAL SERUM C 733.96 % 24 0.24-870.68 Complete blood count (CBC) with automate d white blood cell (WBC) differential - 05/13/19 18:29 Blood leukocytes automated count (number/volume) 6.7 10*3/uL 4.3-11.0 Blood erythrocytes automated count (number/volume) 4.06 10*6/uL 4.35-5.85 Venous blood hemoglobin measurement (mass/volume) 12.0 g/dL 13.3-17.7 Blood hematocrit (volume fraction) 36 % 40-54 Automated erythrocyte mean corpuscular volume 87 [ foz_us] 80-99 Automated erythrocyte mean corpuscular h emoglobin (mass per erythrocyte) 30 pg 25-34 Automated erythrocyte mean corpuscular h emoglobin concentration measurement (mass/volume) 34 g/dL 32-36 Automated erythrocyte distribution width ratio 13. 4 % 10.0- 14.5 Automated blood platelet count (count/volume) 336 10*3/uL 130-400 Automated blood platelet mean volume measurement 9.8 [foz_us] 7.4-10.4 Automated blood neutrophils/100 leukocytes 54 % 42-75 Automated blood lymphocytes/100 leukocytes 26 % 12-44 Blood monocytes/100 leukocytes 9 % 0-12 Automated blood eosinophils/100 leukocytes 11 % 0-10 Automated blood basophils/100 leukocytes 1 % 0-10 Blood neutrophils automated count (number/volume) 3.6 10*3 1.8-7.8 Blood lymphocytes automated count (number/volume) 1.7 10*3 1.0-4.0 Blood monocytes automated count (number/volume) 0. 6 10*3 0.0-1.0 Automated eosinophil count 0.7 10*3/uL 0 .0-0.3 Automated blood basophil count (count/volume) 0.1 10*3/uL 0.0-0.1 Complete urinalysis with reflex to cultu re - 05/13/19 18:29 Urine color determination YELLOW NRG Urine clarity determination CLEAR NR G Urine pH measurement by test strip 7 5-9 Specific gravity of urine by test strip 1.005 1.016-1.022 Urine protein assay by test strip, semi-quantitative 1+ NEGATIVE Urine glucose detection by automated test strip 1+ NEGATIVE Erythrocytes detection in urine sediment by light micr oscopy NEGATIVE NEGATIVE Urine ketones detection by automated test strip NE GATIVE NEGATIVE Urine nitrite detection by test strip NEGATIVE NEGATIVE Urine total bilirubin detection by test strip NEGA TIVE NEGATIVE Urine urobilinogen measurement by automated test strip (mass/volume) NORMAL NORMAL Urine leukocyte esterase detection by dipstick NEG ATIVE NEGATIVE Automated urine sediment erythrocyte cou nt by microscopy (number/high power field) NONE NRG Automated urine sediment leukocyte count by microscopy (number/high power field) RARE NRG Bacteria detection in urine sediment by light microsco py TRACE NRG Squamous epithelial cells detection in u rine sediment by light microscopy RARE NRG Crystals detection in urine sediment by light microsco py NONE NRG Casts detection in urine sediment by light microscopy NONE NRG Mucus detection in urine sediment by light microscopy NEGATIVE NRG Complete urinalysis with reflex to culture NO NRG Other elements identification in urine sediment by lig ht microscopy MOD SPERM NRG Serum or plasma renal function panel (Na , K, Cl, CO2, BUN, Cr, glucose,Ca, phos, alb) - 05/13/19 18:29 Serum or plasma sodium measurement (moles/volume) 139 mmol/L 135-145 Serum or plasma potassium measurement (moles/volume) 4.4 mmol/L 3.6-5.0 Serum or plasma chloride measurement (moles/volume) 106 mmol/L 98-107 Carbon dioxide 21 mmol/L 21-32 Serum or plasma anion gap determination (moles/volume) 12 mmol/L 5-14 Serum or plasma urea nitrogen measurement (mass/volume ) 72 mg/dL 7-18 Serum or plasma creatinine measurement (mass/volume) 4.48 mg/dL 0.60-1.30 Serum or plasma urea nitrogen/creatinine mass ratio 16 NRG Serum or plasma creatinine measurement w ith calculation of estimated glomerular filtration rate 16 NRG Serum or plasma glucose measurement (mass/volume) 161 mg/dL 70-105 Serum or plasma calcium measurement (mass/volume) 9.4 mg/dL 8.5-10.1 Serum or plasma albumin measurement (mass/volume) 4.0 g/dL 3.2-4.5 Serum or plasma phosphate measurement (mass/volume) 4.5 mg/dL 2.3-4.7 Serum or plasma uric acid measurement (m ass/volume) - 05/13/19 18:29 Serum or plasma uric acid measurement (mass/volume) 8.2 mg/dL 2.6-7.2 Urine protein/creatinine mass ratio - 18:29 Urine protein measurement (mass/volume) 8 mg/dL 6-12 Urine creatinine measurement (mass/volume) 62 mg/d L 30-125 Urine protein/creatinine mass ratio 0.13 NRG Serum or plasma intact pararthyroid horm one measurement (mass/volume) - 05/13/19 18:29 Serum or plasma intact parathyroid hormone measurement (mass/volume) 58.6 pg/mL 9.0-77.0 Bio-intact parathyroid hormone (PTH) measurement with calcium 9.6 % 8.5-10.5 VITAMIN D 25-HYDROXY - 05/13/19 18:29 VITAMIN D 25-HYDROXY (TOTAL) 27.6 % 3 0.0-100.0 Complete urinalysis with reflex to cultu re - 09/08/19 17:40 Urine color determination YELLOW NRG Urine clarity determination CLEAR NR G Urine pH measurement by test strip 6.5 5-9 Specific gravity of urine by test strip 1.015 1.016-1.022 Urine protein assay by test strip, semi-quantitative TRACE NEGATIVE Urine glucose detection by automated test strip 2+ NEGATIVE Erythrocytes detection in urine sediment by light micr oscopy NEGATIVE NEGATIVE Urine ketones detection by automated test strip NE GATIVE NEGATIVE Urine nitrite detection by test strip NEGATIVE NEGATIVE Urine total bilirubin detection by test strip NEGA TIVE NEGATIVE Urine urobilinogen measurement by automated test strip (mass/volume) 0.2 mg/dL < = 1.0 Urine leukocyte esterase detection by dipstick NEG ATIVE NEGATIVE Automated urine sediment erythrocyte cou nt by microscopy (number/high power field) NONE NRG Automated urine sediment leukocyte count by microscopy (number/high power field) NONE NRG Bacteria detection in urine sediment by light microsco py NEGATIVE NRG Squamous epithelial cells detection in u rine sediment by light microscopy RARE NRG Crystals detection in urine sediment by light microsco py NONE NRG Casts detection in urine sediment by light microscopy NONE NRG Mucus detection in urine sediment by light microscopy NEGATIVE NRG Complete urinalysis with reflex to culture NO NRG Urine protein/creatinine mass ratio - 17:40 Urine protein measurement (mass/volume) 25 mg/dL 6-12 Urine creatinine measurement (mass/volume) 101 mg/ dL 30-125 Urine protein/creatinine mass ratio 0.25 NRG Automated blood complete blood count (he mogram) panel - 09/08/19 17:56 Blood leukocytes automated count (number/volume) 9.5 10*3/uL 4.3-11.0 Blood erythrocytes automated count (number/volume) 4.34 10*6/uL 4.35-5.85 Venous blood hemoglobin measurement (mass/volume) 12.7 g/dL 13.3-17.7 Blood hematocrit (volume fraction) 38 % 40-54 Automated erythrocyte mean corpuscular volume 87 [ foz_us] 80-99 Automated erythrocyte mean corpuscular h emoglobin (mass per erythrocyte) 29 pg 25-34 Automated erythrocyte mean corpuscular h emoglobin concentration measurement (mass/volume) 34 g/dL 32-36 Automated erythrocyte distribution width ratio 13. 8 % 10.0- 14.5 Automated blood platelet count (count/volume) 397 10*3/uL 130-400 Automated blood platelet mean volume measurement 9.5 [foz_us] 7.4-10.4 Complete blood count (CBC) with automate d white blood cell (WBC) differential - 09/08/19 17:56 Blood leukocytes automated count (number/volume) 9.5 10*3/uL 4.3-11.0 Blood erythrocytes automated count (number/volume) 4.34 10*6/uL 4.35-5.85 Venous blood hemoglobin measurement (mass/volume) 12.7 g/dL 13.3-17.7 Blood hematocrit (volume fraction) 38 % 40-54 Automated erythrocyte mean corpuscular volume 87 [ foz_us] 80-99 Automated erythrocyte mean corpuscular h emoglobin (mass per erythrocyte) 29 pg 25-34 Automated erythrocyte mean corpuscular h emoglobin concentration measurement (mass/volume) 34 g/dL 32-36 Automated erythrocyte distribution width ratio 13. 8 % 10.0- 14.5 Automated blood platelet count (count/volume) 397 10*3/uL 130-400 Automated blood platelet mean volume measurement 9.5 [foz_us] 7.4-10.4 Automated blood neutrophils/100 leukocytes 45 % 42-75 Automated blood lymphocytes/100 leukocytes 29 % 12-44 Blood monocytes/100 leukocytes 9 % 0-12 Automated blood eosinophils/100 leukocytes 16 % 0-10 Automated blood basophils/100 leukocytes 1 % 0-10 Blood neutrophils automated count (number/volume) 4.3 10*3 1.8-7.8 Blood lymphocytes automated count (number/volume) 2.7 10*3 1.0-4.0 Blood monocytes automated count (number/volume) 0. 8 10*3 0.0-1.0 Automated eosinophil count 1.5 10*3/uL 0 .0-0.3 Automated blood basophil count (count/volume) 0.1 10*3/uL 0.0-0.1 Serum or plasma renal function panel (Na , K, Cl, CO2, BUN, Cr, glucose,Ca, phos, alb) - 09/08/19 17:56 Serum or plasma sodium measurement (moles/volume) 140 mmol/L 135-145 Serum or plasma potassium measurement (moles/volume) 3.9 mmol/L 3.6-5.0 Serum or plasma chloride measurement (moles/volume) 107 mmol/L 98-107 Carbon dioxide 22 mmol/L 21-32 Serum or plasma anion gap determination (moles/volume) 11 mmol/L 5-14 Serum or plasma urea nitrogen measurement (mass/volume ) 56 mg/dL 7-18 Serum or plasma creatinine measurement (mass/volume) 4.35 mg/dL 0.60-1.30 Serum or plasma urea nitrogen/creatinine mass ratio 13 NRG Serum or plasma creatinine measurement w ith calculation of estimated glomerular filtration rate 16 NRG Serum or plasma glucose measurement (mass/volume) 133 mg/dL 70-105 Serum or plasma calcium measurement (mass/volume) 9.2 mg/dL 8.5-10.1 Serum or plasma albumin measurement (mass/volume) 4.4 g/dL 3.2-4.5 Serum or plasma phosphate measurement (mass/volume) 3.9 mg/dL 2.3-4.7 Serum or plasma uric acid measurement (m ass/volume) - 09/08/19 17:56 Serum or plasma uric acid measurement (mass/volume) 7.2 mg/dL 2.6-7.2 Lipid 1996 panel - 09/08/19 17:56 Serum or plasma triglyceride measurement (mass/volume) 339 mg/dL <150 Serum or plasma cholesterol measurement (mass/volume) 216 mg/dL < 200 Serum or plasma cholesterol in HDL measurement (mass/v olume) 56 mg/dL 40-60 Cholesterol in LDL [mass/volume] in serum or plasma by direct assay 122 mg/dL 1-129 Serum or plasma cholesterol in VLDL measurement (mass/ volume) 68 mg/dL 5-40 Manual absolute plasma cell count - 02/20 17:56 Blood monocytes/100 leukocytes 6 % NRG Manual blood segmented neutrophils/100 leukocytes 44 % NRG Manual blood lymphocytes/100 leukocytes 32 % NRG Manual eosinophils/100 leukocytes in nose 17 % NRG Manual blood basophils/100 leukocytes 1 % NRG Blood erythrocyte morphology finding identification NORMAL NRG Serum or plasma testosterone measurement (mass/volume) - 09/08/19 17:56 TESTOSTERONE TOTAL SERUM C 917.72 % 24 0.24-870.68 Serum or plasma intact pararthyroid horm one measurement (mass/volume) - 09/08/19 17:56 Serum or plasma intact parathyroid hormone measurement (mass/volume) 188.9 pg/mL 9.0-77.0 Bio-intact parathyroid hormone (PTH) measurement with calcium 9.2 % 8.5-10.5 VITAMIN D 25-HYDROXY - 09/08/19 17:56 VITAMIN D 25-HYDROXY (TOTAL) 20.5 % 3 0.0-100.0 Automated blood complete blood count (he mogram) panel - 12/16/19 17:43 Blood leukocytes automated count (number/volume) 8.1 10*3/uL 4.3-11.0 Blood erythrocytes automated count (number/volume) 4.03 10*6/uL 4.35-5.85 Venous blood hemoglobin measurement (mass/volume) 11.6 g/dL 13.3-17.7 Blood hematocrit (volume fraction) 35 % 40-54 Automated erythrocyte mean corpuscular volume 87 [ foz_us] 80-99 Automated erythrocyte mean corpuscular h emoglobin (mass per erythrocyte) 29 pg 25-34 Automated erythrocyte mean corpuscular h emoglobin concentration measurement (mass/volume) 33 g/dL 32-36 Automated erythrocyte distribution width ratio 14. 7 % 10.0- 14.5 Automated blood platelet count (count/volume) 374 10*3/uL 130-400 Automated blood platelet mean volume measurement 9.6 [foz_us] 7.4-10.4 Complete urinalysis with reflex to cultu re - 12/16/19 17:43 Urine color determination YELLOW NRG Urine clarity determination CLEAR NR G Urine pH measurement by test strip 6.5 5-9 Specific gravity of urine by test strip 1.010 1.016-1.022 Urine protein assay by test strip, semi-quantitative NEGATIVE NEGATIVE Urine glucose detection by automated test strip 2+ NEGATIVE Erythrocytes detection in urine sediment by light micr oscopy NEGATIVE NEGATIVE Urine ketones detection by automated test strip NE GATIVE NEGATIVE Urine nitrite detection by test strip NEGATIVE NEGATIVE Urine total bilirubin detection by test strip NEGA TIVE NEGATIVE Urine urobilinogen measurement by automated test strip (mass/volume) 0.2 mg/dL < = 1.0 Urine leukocyte esterase detection by dipstick NEG ATIVE NEGATIVE Automated urine sediment erythrocyte cou nt by microscopy (number/high power field) NONE NRG Automated urine sediment leukocyte count by microscopy (number/high power field) NONE NRG Bacteria detection in urine sediment by light microsco py NEGATIVE NRG Crystals detection in urine sediment by light microsco py NONE NRG Casts detection in urine sediment by light microscopy NONE NRG Mucus detection in urine sediment by light microscopy NEGATIVE NRG Complete urinalysis with reflex to culture NO NRG Urine protein/creatinine mass ratio - 17:43 Urine protein measurement (mass/volume) 7 mg/dL 6-12 Urine creatinine measurement (mass/volume) 47 mg/d L 30-125 Urine protein/creatinine mass ratio 0.15 NRG Serum or plasma renal function panel (Na , K, Cl, CO2, BUN, Cr, glucose,Ca, phos, alb) - 12/16/19 17:43 Serum or plasma sodium measurement (moles/volume) 139 mmol/L 135-145 Serum or plasma potassium measurement (moles/volume) 4.1 mmol/L 3.6-5.0 Serum or plasma chloride measurement (moles/volume) 110 mmol/L 98-107 Carbon dioxide 17 mmol/L 21-32 Serum or plasma anion gap determination (moles/volume) 12 mmol/L 5-14 Serum or plasma urea nitrogen measurement (mass/volume ) 61 mg/dL 7-18 Serum or plasma creatinine measurement (mass/volume) 4.22 mg/dL 0.60-1.30 Serum or plasma urea nitrogen/creatinine mass ratio 14 NRG Serum or plasma creatinine measurement w ith calculation of estimated glomerular filtration rate 17 NRG Serum or plasma glucose measurement (mass/volume) 184 mg/dL 70-105 Serum or plasma calcium measurement (mass/volume) 8.6 mg/dL 8.5-10.1 Serum or plasma albumin measurement (mass/volume) 4.4 g/dL 3.2-4.5 Serum or plasma phosphate measurement (mass/volume) 5.6 mg/dL 2.3-4.7 Serum or plasma uric acid measurement (m ass/volume) - 12/16/19 17:43 Serum or plasma uric acid measurement (mass/volume) 8.9 mg/dL 2.6-7.2 Serum or plasma intact pararthyroid horm one measurement (mass/volume) - 12/16/19 17:43 Serum or plasma intact parathyroid hormone measurement (mass/volume) 209.3 pg/mL 9.0-77.0 Bio-intact parathyroid hormone (PTH) measurement with calcium 8.7 % 8.5-10.5 VITAMIN D 25-HYDROXY - 12/16/19 17:43 VITAMIN D 25-HYDROXY (TOTAL) 18.8 % 3 0.0-100.0 Complete blood count (CBC) with automate d white blood cell (WBC) differential - 03/01/20 17:55 Blood leukocytes automated count (number/volume) 9.6 10*3/uL 4.3-11.0 Blood erythrocytes automated count (number/volume) 3.96 10*6/uL 4.35-5.85 Venous blood hemoglobin measurement (mass/volume) 11.7 g/dL 13.3-17.7 Blood hematocrit (volume fraction) 36 % 40-54 Automated erythrocyte mean corpuscular volume 91 [ foz_us] 80-99 Automated erythrocyte mean corpuscular h emoglobin (mass per erythrocyte) 30 pg 25-34 Automated erythrocyte mean corpuscular h emoglobin concentration measurement (mass/volume) 33 g/dL 32-36 Automated erythrocyte distribution width ratio 15. 3 % 10.0- 14.5 Automated blood platelet count (count/volume) 304 10*3/uL 130-400 Automated blood platelet mean volume measurement 10.0 [foz_us] 7.4-10.4 Automated blood neutrophils/100 leukocytes 58 % 42-75 Automated blood lymphocytes/100 leukocytes 22 % 12-44 Blood monocytes/100 leukocytes 9 % 0-12 Automated blood eosinophils/100 leukocytes 11 % 0-10 Automated blood basophils/100 leukocytes 1 % 0-10 Blood neutrophils automated count (number/volume) 5.6 10*3 1.8-7.8 Blood lymphocytes automated count (number/volume) 2.1 10*3 1.0-4.0 Blood monocytes automated count (number/volume) 0. 8 10*3 0.0-1.0 Automated eosinophil count 1.0 10*3/uL 0 .0-0.3 Automated blood basophil count (count/volume) 0.1 10*3/uL 0.0-0.1 Serum or plasma testosterone measurement (mass/volume) - 03/01/20 17:55 TESTOSTERONE TOTAL SERUM C 1025.17 % 24 0.24-870.68 Encounters ACCT No. Visit Date/Time Discharge Status Pt. Type Provider Facility Loc./Unit Complaint [id number] 01/22/2020 15:40:00 01/22/2020 23:59: 59 CLS Outpatient JORGE L TYLER [facility] [id number] 07/05/2017 14:00:00 Document Registration [id number] 03/20/2017 09:20:00 Document Registration [id number] 03/21/2017 14:09:00 Document Registration [id number] 12/16/2019 17:22:00 23:59:59 CLS Outpatient ADRY ZHOU MD [facility] LAB DM,EPLIEPSY,CKD 4, PRTEINURIA [id number] 09/08/2019 17:29:00 23:59:59 CLS Outpatient ADRY ZHOU MD [facility] LAB TYPE 1 DM,CHRON IC KIDNEY DISEASE,EPILEPSY,NEPHROTI [id number] 09/08/2019 17:25:00 01/06/2 020 23:59:59 CLS Outpatient RUELAS DO, GABE L [facility] LAB TYPE 1 DM, HYPO GONADISM [id number] 05/13/2019 18:06:00 23:59:59 CLS Outpatient ADRY ZHOU MD [facility] LAB E10.9,G40.109,Z87.448,N18.4,R80.9 [id number] 05/06/2019 18:52:00 23:59:59 CLS Outpatient SALO RUELAS DOISON L [facility] LAB [id number] 01/06/2019 17:34:00 23:59:59 CLS Outpatient GABE RUELAS DO L [facility] LAB TYPE 1 DIABETES MELLITUS [id number] 01/02/2019 17:40:00 23:59:59 CLS Outpatient ADRY ZHOU MD [facility] LAB TYPE 1 DIABETES ,CHRONIC KIDNEY DISEASE,EPILEPSY [id number] 10/31/2018 12:22:00 23:59:59 CLS Outpatient ADRY ZHOU MD [facility] LAB E10.9 [id number] 09/11/2018 17:45:00 23:59:59 CLS Outpatient GABE RUELAS DO L [facility] LAB HYPOGONADISM,TY PE 1 DIABETES MELLITUS [id number] 07/18/2018 08:02:00 23:59:59 CLS Outpatient JORGE L TYLER MD [facility] RAD CLOSED FX OF ONE RIB OF RT SIDE W/ ROUTINE HEALING [id number] 07/09/2018 17:35:00 23:59:59 CLS Outpatient ADRY ZHOU MD [facility] LAB TYPE 1 DIABETES ;CHORNIC KIDNEY DISEASE [id number] 05/31/2018 08:30:00 23:59:59 CLS Outpatient GABE RUELAS DO [facility] RAD ABDOMINAL PAIN [id number] 04/30/2018 13:24:00 018 17:15:00 DIS Emergency NIKOLAS MAKI, LUIS Quinones [facility] ER SEIZURE/CANNOT EAT [id number] 04/23/2018 09:49:00 018 13:59:00 DIS Emergency MOI MAKI, SIMONE T [facility] ER POSS DEHYDRATED ,SEIZURE YESTERDAY [id number] 02/11/2018 09:57:00 018 23:59:59 CLS Outpatient WINNIE MAKI, XI Rahman [facility] RAD DIFFICULTY PASS ING URINE [id number] 01/31/2018 11:40:00 018 23:59:59 CLS Outpatient ADRY ZHOU MD [facility] LAB E10.9 G40.109 Z 87.448 N18.4 R80.9 [id number] 01/31/2018 11:38:00 018 23:59:59 CLS Outpatient JORGE L TYLER MD [facility] LAB R53.83 E10.22 N18.4 [id number] 12/07/2017 14:56:00 018 23:59:59 CLS Outpatient VALENTINO WILLAMS [facility] RAD S06.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 MILD TRAUMATIC BRAIN INJURY [id number] 12/04/2017 17:20:00 018 23:59:59 CLS Outpatient JORGE L TYLER MD [facility] LAB FATIGUE,TYPE 1 DIABETES ;CHRONIC KIDNEY DISEASE [id number] 11/22/2017 17:48:00 018 23:59:59 CLS Outpatient ADRY ZHOU MD [facility] RAD DIABETES;CHRONI C KIDNEY DISEASE;EPILEPSY;NEPHROTIC [id number] 11/14/2017 18:08:00 018 22:47:00 DIS Emergency MAYELA GUERRERO [facility] ER JAW PAIN;NAUSEA [id number] 11/06/2017 14:43:00 018 23:59:59 CLS Outpatient ZHANG MAKI, BLAINE Quinones [facility] LAB SEIZURE ON LAMICTAL [id number] 08/01/2017 13:33:00 017 23:59:59 CLS Outpatient WINNIE MAKI, ADRY [facility] LAB E10.9M G40.109, Z87.448, N18.4, R80.9 [id number] 03/01/2020 17:42:[address] Outpatient GABE RUELAS DO [facility] LAB CBC W/ DIFF,TESTOSTERONE TOT AL [id number] 04/18/2018 17:35:00 Document Registration
== END 2020-03-03 15:04 | disposition home or self-care (01) ==
LOC: EDUNIT# 13:23 → ER 13:24
DX: S93.501A Unspecified sprain of right great toe, initial encounter (principal); I10 Essential (primary) hypertension; G40.909 Epilepsy, unspecified, not intractable, without status epilepticus; G43.909 Migraine, unspecified, not intractable, without status migrainosus; Z88.0 Allergy status to penicillin; Z88.8 Allergy status to other drugs, medicaments and biological substances; Z79.51 Long term (current) use of inhaled steroids; Z79.52 Long term (current) use of systemic steroids; W22.8XXA Striking against or struck by other objects, initial encounter; Y93.75 Activity, martial arts
CPT/HCPCS: 73660

== ENCOUNTER → 2020-03-16 | Outpatient (CLI) | payer MEDICARE, MEDICAID ==
[2020-03-16 18:10] LABS: BILIRUBIN,URINE NEGATIVE (NEGATIVE); CLARITY,URINE CLEAR; COLOR,URINE YELLOW; GLUCOSE, URINE (UA) 3+ (NEGATIVE); KETONES,URINE NEGATIVE (NEGATIVE); LEUKOCYTE ESTERASE ,URINE NEGATIVE (NEGATIVE); NITRITE,URINE NEGATIVE (NEGATIVE); PH,URINE 5.5 (5-9); PROTEIN,URINE NEGATIVE (NEGATIVE)
[2020-03-16 18:18] LABS: BACTERIA,URINE NEGATIVE /HPF; HYALINE CASTS, URINE RARE /LPF; SQUAMOUS EPITHELIAL CELL,UR RARE /HPF; WBC,URINE RARE /HPF
[2020-03-16 18:31] LABS: HEMOGLOBIN 12.9 G/DL (13.3-17.7); MEAN PLATELET VOLUME 9.8 FL (7.4-10.4); WHITE BLOOD COUNT 10.7 10^3/uL (4.3-11.0)
[2020-03-16 18:33] LABS: ALBUMIN 4.5 GM/DL (3.2-4.5)
[2020-03-16 18:34] LABS: POTASSIUM 4.2 MMOL/L (3.6-5.0)
[2020-03-16 18:35] LABS: CALCIUM 9.4 MG/DL (8.5-10.1)
[2020-03-16 18:39] LABS: PHOSPHORUS 4.6 MG/DL (2.3-4.7)
[2020-03-16 18:40] LABS: CREATININE SERUM 4.35 MG/DL (0.60-1.30)
[2020-03-16 18:42] LABS: URIC ACID 9.2 MG/DL (2.6-7.2)
== END ==
LOC: LAB 17:45
PROVIDERS: ATTEND Internal Medicine Nephrology
DX: E10.9 Type 1 diabetes mellitus without complications (principal); E10.10 Type 1 diabetes mellitus with ketoacidosis without coma; E10.22 Type 1 diabetes mellitus with diabetic chronic kidney disease; N18.4 Chronic kidney disease, stage 4 (severe); G40.109 Localization-related (focal) (partial) symptomatic epilepsy and epileptic syndromes with simple partial seizures, not intractable, without status epilepticus; G40.909 Epilepsy, unspecified, not intractable, without status epilepticus; N04.9 Nephrotic syndrome with unspecified morphologic changes; N05.0 Unspecified nephritic syndrome with minor glomerular abnormality; R80.9 Proteinuria, unspecified; R39.198 Other difficulties with micturition
CPT/HCPCS: 36415; 80069; 81000; 82306; 82570; 83970; 84156; 84550; 85027

== ENCOUNTER → 2020-05-27 | Outpatient (CLI) | payer MEDICARE, MEDICAID | LOC: LAB 12:06 | PROVIDERS: ATTEND Internal Medicine Nephrology | DX: I12.9 Hypertensive chronic kidney disease with stage 1 through stage 4 chronic kidney disease, or unspecified chronic kidney disease (principal); E10.22 Type 1 diabetes mellitus with diabetic chronic kidney disease; N02.0 Recurrent and persistent hematuria with minor glomerular abnormality; E87.2 Acidosis; E83.9 Disorder of mineral metabolism, unspecified ==

== ENCOUNTER → 2020-05-27 | Outpatient (CLI) | payer MEDICARE, MEDICAID ==
[2020-05-27 12:51] LABS: ALBUMIN 4.2 GM/DL (3.2-4.5); CALCIUM 8.7 MG/DL (8.5-10.1); CREATININE SERUM 3.96 MG/DL (0.60-1.30); POTASSIUM 4.1 MMOL/L (3.6-5.0); URIC ACID 7.8 MG/DL (2.6-7.2)
== END ==
LOC: LAB 11:59
PROVIDERS: ATTEND Family Medicine
DX: G40.909 Epilepsy, unspecified, not intractable, without status epilepticus (principal)
CPT/HCPCS: 36415; 80069; 82306; 82550; 82570; 84156; 84550

== ENCOUNTER 2023-03-28 05:48 | Inpatient (IN) | payer MEDICAID, MEDICARE ==
[~2023-03-28] VITALS: Ht 162 cm; Wt 51.6 kg
[2023-03-28] MEDS ORDERED: NS IV 1000 ML 1,000 ML IV STA ×2 (06:19→07:50)
--- NOTE | 2023-03-28 06:19 | ED General ---
General Chief Complaint: Glucose Problems Stated Complaint: HIGH BLOOD SUGAR Nursing Triage Note: TO ED VIA POV AND AMBULATORY TO ROOM 6 WITH C/O "HIGH BLOOD SUGARS". PT STATES HE STARTED NOT FEELING WELL MID AFTERNOON YESTERDAY. WOMAN WITH PT STATES, "HE WOKE ME UP AT 5 AM SAYING HIS SUGARS WERE HIGH". WOMAN WITH PT ANSWERS MOST OF QUESTIONS AND TALKS OVER PT. Source of Information: Patient History of Present Illness Date Seen by Provider: Mar 28, 2023 Time Seen by Provider: 06:19 Initial Comments Patient is a 32-year-old male who presents to the emergency department with a chief complaint of elevated blood sugar. Known diabetic. He worked outside mowing the yard all day yesterday. Woke up this morning with nausea vomiting around 5 AM. He also had some "squeezing" type left-sided chest pain. He denies shortness of breath or productive cough. He denies abdominal pain. He has not had any diarrhea. No recent black or bloody stools or dysuria. He denies any fevers, chills, runny nose, sore throat or earache. His mother presents with him and provides additional history. He states he has a history of seizures, hypertension, gastroparesis and nephrotic syndrome. He is also complaining of a little mid back pain and mild chest pain is continuing. He states he also woke up with a little left knee pain - he states this is chronic and occasionally flares. He is nauseous. He takes eaxu-qtq-cugibae bonine for nausea. Timing/Duration: 1-3 Hours Severity: Moderate Associated Systoms: Chest Pain, Nausea/Vomiting Allergies and Home Medications Allergies Coded Allergies: Penicillins (Verified Allergy, Unknown, 03/03/20) levetiracetam (Verified Allergy, Unknown, 11/14/17) promethazine (Verified Allergy, Unknown, 03/03/20) Patient Home Medication List Home Medication List Reviewed: Yes Amlodipine Besylate (Amlodipine Besylate) 5 Mg Tablet, 5 MG PO DAILY, (Reported) Entered as Reported by: CORNELIUS EVANS on 03/28/23 121 Last Action: Continued Calcitriol (Calcitriol) 0.25 Mcg Capsule, 0.25 MG PO HS, (Reported) Entered as Reported by: CORNELIUS EVANS on 03/28/231214 Last Action: Continued Insulin Aspart (Novolog) 100 Unit/Ml Susp, UNITS PER PUMP, (Reported) Entered as Reported by: CORNELIUS EVANS on 03/28/231214 Last Action: Held Lisinopril (Lisinopril) 5 Mg Tablet, 5 MG PO DAILY, (Reported) Entered as Reported by: CORNELIUS EVANS on 03/28/231214 Last Action: Held Prednisone (Prednisone) 5 Mg Tablet, 5 MG PO DAILY, (Reported) Entered as Reported by: CORNELIUS EVANS on 03/28/231214 Last Action: Continued Propranolol HCl (Propranolol HCl) 60 Mg Tablet, 60 MG PO HS, (Reported) Entered as Reported by: CORNELIUS EVANS on 03/28/231214 Last Action: Converted Sertraline HCl (Sertraline HCl) 100 Mg Tablet, 150 MG PO DAILY, (Reported) Entered as Reported by: CORNELIUS EVANS on 03/28/231214 Last Action: Continued Sodium Bicarbonate (Sodium Bicarbonate) 650 Mg Tablet, 1,300 MG PO TID, (Reported) Entered as Reported by: CORNELIUS EVANS on 03/28/231214 Last Action: Continued Zonisamide (Zonisamide) 100 Mg Capsule, 400 MG PO HS, (Reported) Entered as Reported by: CORNELIUS EVANS on 03/28/231214 Last Action: Continued Discontinued Medications Atorvastatin Calcium (Lipitor 10 Mg) 10 Mg Tablet, 1 EACH PO DAILY, (Reported) Discontinued Reason: No Longer Taking Entered as Reported by: STAR CASTELAN on 08/17/10 1304 Last Action: Discontinued Chlorothiazide (Chlorothiazide) 500 Mg Tablet, 500 MG PO DAILY, (Reported) Discontinued Reason: No Longer Taking Entered as Reported by: STAR CASTELAN on 08/17/10 1304 Last Action: Discontinued Clonazepam (Clonazepam) 1 Mg Tablet, (Reported) Discontinued Reason: No Longer Taking Entered as Reported by: RAFFAELE JI on 04/23/18 1013 Last Action: Discontinued Cyclosporine, Modified (Cyclosporine Modified) 100 Mg Capsule, 125 MG PO BID, (Reported) Discontinued Reason: No Longer Taking Entered as Reported by: STAR CASTLEAN on 08/17/10 1304 Last Action: Discontinued Fluticasone Propionate (Flonase [place] (Non-Formulary)) 50 Mcg/16 G [place], 50 MCG NA DAILY, (Reported) Discontinued Reason: No Longer Taking Entered as Reported by: STAR CASTELAN on 08/17/10 130 Last Action: Discontinued Hydrocodone Bit/Acetaminophen (Lortab 5 Mg Tablet) 1 Tab Tab, 1 TAB PO Q4H PRN for pain Discontinued Reason: No Longer Taking Prescribed by: MAYELA LOPEZ on 11/14/17 2230 Last Action: Discontinued Hydrocodone Bit/Acetaminophen (Lortab 5 Mg Tablet) 1 Each Tablet, 1 EACH PO Q4H PRN for PAIN-MODERATE TO SEVERE Discontinued Reason: No Longer Taking Prescribed by: SIMONE MADISON on 04/23/18 1352 Last Action: Discontinued Lamotrigine (Lamictal) 100 Mg Tablet, 125 MG PO BID, (Reported) Discontinued Reason: No Longer Taking Entered as Reported by: STAR CASTELAN on 08/17/10 130 Last Action: Discontinued Lisinopril (Zestril) 40 Mg Tablet, 1 EACH PO DAILY, (Reported) Discontinued Reason: No Longer Taking Entered as Reported by: STAR CASTELAN on 08/17/101303 Last Action: Discontinued Multivitamins (Multiple Vitamin) 1 Tab Tablet, 1 TAB PO DAILY, (Reported) Discontinued Reason: No Longer Taking Entered as Reported by: STAR CASTELAN on 08/17/10 150 Last Action: Discontinued [place] 3 Polyunsat Fatty Acids (Fish Oil) 1,000 Mg Cap, 900 MG PO DAILY, (Reported) Discontinued Reason: No Longer Taking Entered as Reported by: STAR CASTELAN on 08/17/101506 Last Action: Discontinued Ondansetron (Zofran Odt) 4 Mg Tab.rapdis, 4 MG SL Q4H PRN for NAUSEA/VOMITING- 1ST LINE Discontinued Reason: No Longer Taking Prescribed by: SIMONE MADISON on 04/23/18 1408 Last Action: Discontinued Prednisone (Prednisone) 10 Mg Tab, 10 MG PO QOD, (Reported) Discontinued Reason: No Longer Taking Entered as Reported by: STAR CASTELAN on 08/17/101303 Last Action: Discontinued Sawpalmtofrtxt/Zinc Picolinate (Saw [place] Capsule) 1 Each Capsule, 1 EACH PO BID, (Reported) Discontinued Reason: No Longer Taking Entered as Reported by: STAR CASTELAN on 08/17/101506 Last Action: Discontinued Sertraline Hcl (Sertraline Hcl) 50 Mg Tablet, 50 MG PO DAILY, (Reported) Discontinued Reason: No Longer Taking Entered as Reported by: STAR CASTELAN on 08/17/101303 Last Action: Discontinued Trazodone Hcl (Trazodone Hcl) 150 Mg Tablet, 100 MG PO PRN, (Reported) Discontinued Reason: No Longer Taking Entered as Reported by: STAR CASTELAN on 08/17/101303 Last Action: Discontinued [Insulin Pump/Novolog] , (Reported) Discontinued Reason: No Longer Taking Entered as Reported by: STAR CASTELAN on 08/17/101303 Last Action: Discontinued Review of Systems Review of Systems Constitutional: see HPI EENTM: no symptoms reported Respiratory: cough (occasional - no change); No phlegm, No short of breath Cardiovascular: chest pain Gastrointestinal: nausea, vomiting Genitourinary: no symptoms reported Musculoskeletal: no symptoms reported Skin: no symptoms reported Psychiatric/Neurological: No Symptoms Reported All Other Systems Reviewed Negative Unless Noted: Yes Past Pqyxvnm-Vyevvb-Afrjyj Hx Patient Social History Tobacco Use?: No Substance use?: Yes Substance type: Marijuana Additional substance use comme: LAST USE 03/27/23 Alcohol Use?: No Immunizations Up To Date PED Vaccines UTD: Yes First/Initial COVID19 Vaccinat: ONLY 1 VACCINE COVID19 Vaccine Credit Operations Processor: [employer] Past Medical History Surgeries: Yes (5 groshong placements; kidney bx's.) Respiratory: Yes Pneumonia Cardiac: Yes Hypertension Neurological: Yes Headaches /Migraines, Seizure Disorder Reproductive Disorders: No Sexually Transmitted Disease: No Genitourinary: Yes Renal Failure Gastrointestinal: Yes Musculoskeletal: No Endocrine: Yes Diabetes, Insulin dep HEENT: No Cancer: No Psychosocial: Yes Suicide Attempts Integumentary: No Blood Disorders: No Family Medical History No Pertinent Family Hx Physical Exam Vital Signs Vital Signs - First Documented Capillary Refill : Less Than 3 Seconds Height, Weight, BMI Height: 5'1.00" Weight: 132lbs. oz. 59.057705hf; 18.00 BMI Method:Stated General Appearance: No Apparent Distress, Chronically ill, Thin Eyes: Bilateral Eye Normal Inspection, Bilateral Eye PERRL, Bilateral Eye EOMI HEENT: PERRL/EOMI Neck: Normal Inspection Respiratory: Lungs Clear, Normal Breath Sounds, No Accessory Muscle Use, No Respiratory Distress Cardiovascular: Regular Rate, Rhythm Gastrointestinal: Non Tender, Soft, Abnormal Bowel Sounds (hypoactive) Extremity: Normal Capillary Refill, Normal Inspection, Normal Range of Motion, Non Tender, No Calf Tenderness, No Pedal Edema, Other (mild increased warmth left knee; no erythema; normal ROM) Neurologic/Psychiatric: Alert, Oriented x3, No Motor/Sensory Deficits, Normal Mood/Affect, dump truck driver II-XII Norm as Tested Skin: Normal Color, Warm/Dry Progress/Results/Core Measures Suspected Sepsis SIRS Temperature: Pulse: 106 Respiratory Rate: 18 Laboratory Tests 03/28/23 06:15: White Blood Count 15.5H Blood Pressure 163 /113 Mean: 130 Laboratory Tests 03/28/23 06:15: Creatinine 5.75H, Platelet Count 360, Total Bilirubin 0.2 Results/Orders Lab Results Laboratory Tests Test 03/28/23 06:01 03/28/23 06:15 03/28/23 06:16 03/28/23 06:19 Range/Units Urine Color YELLOW Urine Clarity CLEAR Urine pH 6.0 5-9 Urine Specific [place] 1.010 L 1.016-1.022 Urine Protein 1+ H NEGATIVE Urine Glucose (UA) 3+ H NEGATIVE Urine Ketones 2+ H NEGATIVE Urine Nitrite NEGATIVE NEGATIVE Urine Bilirubin NEGATIVE NEGATIVE Urine Urobilinogen 0.2 < = 1.0 MG/DL Urine Leukocyte Esterase NEGATIVE NEGATIVE Urine RBC (Auto) TRACE-L H NEGATIVE Urine RBC NONE /HPF Urine WBC NONE /HPF Urine Squamous Epithelial Cells 2-5 /HPF Urine Crystals NONE /LPF Urine Bacteria NEGATIVE /HPF Urine Casts NONE /LPF Urine Mucus NEGATIVE /LPF Urine Culture Indicated NO White Blood Count 15.5 H 4.3-11.0 10^3/uL Red Blood Count 4.26 L 4.30-5.52 10^6/uL Hemoglobin 12.7 L 13.3-17.7 g/dL Hematocrit 38 L 40-54 % Mean Corpuscular Volume 89 80-99 fL Mean Corpuscular Hemoglobin 30 25-34 pg Mean Corpuscular Hemoglobin Concent 34 32-36 g/dL Red Cell Distribution Width 13.1 10.0-14.5 % Platelet Count 360 130-400 10^3/uL Mean Platelet Volume 10.2 9.0-12.2 fL Immature Granulocyte % (Auto) 0 % Neutrophils (%) (Auto) 63 42-75 % Lymphocytes (%) (Auto) 16 12-44 % Monocytes (%) (Auto) 7 0-12 % Eosinophils (%) (Auto) 13 H 0-10 % Basophils (%) (Auto) 1 0-10 % Neutrophils # (Auto) 9.7 H 1.8-7.8 10^3/uL Lymphocytes # (Auto) 2.5 1.0-4.0 10^3/uL Monocytes # (Auto) 1.1 H 0.0-1.0 10^3/uL Eosinophils # (Auto) 2.0 H 0.0-0.3 10^3/uL Basophils # (Auto) 0.1 0.0-0.1 10^3/uL Immature Granulocyte # (Auto) 0.1 0.0-0.1 10^3/uL Neutrophils % (Manual) 56 % Lymphocytes % (Manual) 20 % Monocytes % (Manual) 4 % Eosinophils % (Manual) 19 % Basophils % (Manual) 1 % Blood Morphology Comment NORMAL Sodium Level 134 L 135-145 MMOL/L Potassium Level 3.9 3.6-5.0 MMOL/L Chloride Level 103 98-107 MMOL/L Carbon Dioxide Level 9 *L 21-32 MMOL/L Anion Gap 22 H 5-14 MMOL/L Blood Urea Nitrogen 65 H 7-18 MG/DL Creatinine 5.75 H 0.60-1.30 MG/DL Estimat Glomerular Filtration Rate 13 BUN/Creatinine Ratio 11 Glucose Level 581 *H 70-105 MG/DL Calcium Level 9.1 8.5-10.1 MG/DL Corrected Calcium 8.9 8.5-10.1 MG/DL Total Bilirubin 0.2 0.1-1.0 MG/DL Aspartate Amino Transf (AST/SGOT) 12 5-34 U/L Alanine Aminotransferase (ALT/SGPT) 11 0-55 U/L Alkaline Phosphatase 105 40-136 U/L Troponin I < 0.028 <0.028 NG/ML Total Protein 6.8 6.4-8.2 GM/DL Albumin 4.2 3.2-4.5 GM/DL Lipase 104 H 8-78 U/L Beta-Hydroxybutyrate (Chem panel) 6.20 H 0.00-0.27 MMOL/L Glucometer 457 *H 70-110 MG/DL Test 03/28/23 06:33 03/28/23 08:16 03/28/23 09:39 Range/Units Venous Blood pH 7.11 L 7.31-7.41 Venous Blood Partial Pressure CO2 37 L 40-52 MMHG Venous Blood HCO3 11 L 22-28 MMOL/L Glucometer 281 H 159 H 70-110 MG/DL My Orders Orders - AV CRUZ MD Ed Iv/Invasive Line Start (03/28/23 06:19) Cbc With Automated Diff (03/28/23 06:19) Comprehensive Metabolic Panel (03/28/23 06:19) Ua Culture If Indicated (03/28/23 06:19) Beta Hydroxybutyrate (03/28/23 06:19) Ns Iv 1000 Ml (Sodium Chloride 0.9%) (03/28/23 06:19) Ondansetron Injection (Zofran Injectio (03/28/23 06:30) Lipase (03/28/23 06:21) Ekg Tracing (03/28/23 06:29) Troponin I [place] (03/28/23 06:29) Chest 1 View, Ap/Pa Only (03/28/23 06:29) Aspirin Chewable Tablet (Baby Aspirin Ch (03/28/23 09:00) Venous Blood Gas (03/28/23 06:35) Manual Differential (03/28/23 06:15) Accucheck Stat ONCE (03/28/23 06:37) Aspirin Chewable Tablet (Baby Aspirin Ch (03/28/23 06:35) Insulin (Regular) Human (Novolin R (Per (03/28/23 06:58) Insulin (Regular) Human (Novolin R (Per (03/28/23 06:58) Ns Iv 1000 Ml (Sodium Chloride 0.9%) (03/28/23 07:50) Ed Admission (Communication) (03/28/23 09:11) Accucheck Stat ONCE (03/28/23 09:32) Medications Given in ED Current Medications Medications Dose Ordered Sig/Eber Route Start Time Stop Time Status Last Admin Dose Admin Ondansetron HCl 4 mg ONCE ONCE IVP 03/28/23 06:30 03/28/23 06:31 DC 03/28/23 06:36 4 MG Vital Signs/I&O 03/28/23 03/28/23 03/28/23 05:55 05:55 09:59 Temp 36.0 Pulse 106 70 Resp 18 20 B/P (MAP) 163/113 (130) 145/103 Pulse Ox 100 99 O2 Delivery Room Air Room Air Room Air Capillary Refill : Less Than 3 Seconds Blood Pressure Mean: 130 Progress Note : Time: 08:06 Progress Note Patient seen and evaluated by me. Evaluation today includes physical exam, CBC, Chem-12, lipase, troponin, beta hydroxybutyric acid, urinalysis, venous blood gas, single view chest x-ray. Pertinent physical exam findings thin somewhat ill-appearing male in no acute distress. He has slightly tachycardic heart rate at 104. Normal blood pressure, normal oxygen sats. Is not actively vomiting/retching. Heart is regular, lungs are clear. Abdomen is soft and nontender. No lower extremity edema. Neurologically without any focal deficits. Conversant and pleasant. Differential diagnosis based on history and physical exam, DKA, exacerbation of gastroparesis Labs independently reviewed and interpreted by me. His CBC shows a white blood cell count of 15.5, hemoglobin of 12.7 hematocrit of 38 platelet count of 360. His Chem-12 shows a sodium of 134 potassium of 3.9 chloride 103 bicarb of 9, BUN of 65, creatinine 5.75 serum blood glucose of 581. His lipase is 104. Anion gap is 22. His beta hydroxybutyric acid level is 6.2. Troponin is undetectable. Urinalysis shows 3+ glucose, 2+ ketones 1+ protein. His venous blood gas shows a serum pH of 7.11 with a bicarb of 11. Is treated in the emergency department with a liter of normal saline as well as 5 units of regular insulin subcu and 5 units IV. He is also given 4 mg of IV Zofran. He has not had any retching or vomiting during his ED visit. He has quite significant acute kidney injury on top of his nephrotic syndrome. I spoke with his old ultrasound manager from [address] ago, [address] Diana Ramirez. She agrees to consult with Dr. Alba if Dr. Alba would be willing to admit the patient here. She was agreeable to fluid resuscitation at this point with initiation of insulin drip. She anticipated that his renal function would improve back to his baseline once the DKA is corrected. I spoke with Dr. Alba on for the hospitalist service for [facility] as the patient will be a patient of Dr. Tyler. Dr. Alba graciously accepted this patient to the ICU. ECG Initial ECG Impression Date: Mar 28, 2023 Initial ECG Impression Time: 07:12 Initial ECG Rate: 80 Initial ECG Rhythm: Normal Sinus Initial ECG Intervals: Normal Initial ECG Impression: Nonspecific Changes Comment no ectopy, no ST segment elevation or depression Diagnostic Imaging Diagonstic Imaging: Xray Plain Films/CT/US/NM/MRI: chest Comments CXR - independently reviewed and evaluated by me - no effusions or infiltrates; normal mediastinum Critical Care Note Critical Care Start Time: 06:19 Stop Time: 08:10 Total Time (minutes) 30 min critical care time in the eval and management of this Diabetic with DKA and Acute on chronic renal failure. Time includes initial eval with fluid resuscitation, management of DKA with initial boluses of insulin, review of medical record, discussion with Construction Plumber and admitting provider, discussion with family member, serial re-evaluations. Departure Communication (Admissions) Time/Spoke to Consulting Phy: 08:[address] Diana Ramirez; would be happy to consult with Dr Alba Impression Primary Impression: DKA, type 1 Qualified Codes: E10.10 - Type 1 diabetes mellitus with ketoacidosis without coma Additional Impressions: Acute on chronic renal failure Qualified Codes: N17.9 - Acute kidney failure, unspecified; N18.9 - Chronic kidney disease, unspecified History of nephritic syndrome Disposition: ADMITTED INPATIENT Condition: Critical Admissions Decision to Admit Reason: Admit from ER (General) Decision to Admit/Date: Mar 28, 2023 Time/Decision to Admit Time: 08:06 Departure-Patient Inst. Referrals: JORGE L TYLER MD (PCP/Family) Primary Care Physician AV CRUZ MD Mar 28, 2023 06:19
[2023-03-28 06:26] LABS: BILIRUBIN,URINE NEGATIVE (NEGATIVE); CLARITY,URINE CLEAR; COLOR,URINE YELLOW; GLUCOSE, URINE (UA) 3+ (NEGATIVE); KETONES,URINE 2+ (NEGATIVE); LEUKOCYTE ESTERASE ,URINE NEGATIVE (NEGATIVE); NITRITE,URINE NEGATIVE (NEGATIVE); PROTEIN,URINE 1+ (NEGATIVE)
[2023-03-28] MEDS ORDERED: ONDANSETRON 4 MG/2 ML (SDV) Z0FRAN IVP ONE (06:30)
[2023-03-28 06:33] LABS: BASOPHILS # (AUTO) 0.1 10^3/uL (0.0-0.1); BASOPHILS % (AUTO) 1 % (0-10); EOSINOPHILS % (AUTO) 13 % (0-10); HEMATOCRIT 38 % (40-54); HEMOGLOBIN 12.7 g/dL (13.3-17.7); LYMPHOCYTES # (AUTO) 2.5 10^3/uL (1.0-4.0); LYMPHOCYTES % (AUTO) 16 % (12-44); MEAN CORPUSCULAR HEMOGLOBIN 30 pg (25-34); MEAN CORPUSCULAR HGB CONC 34 g/dL (32-36); MEAN CORPUSCULAR VOLUME 89 fL (80-99); MEAN PLATELET VOLUME 10.2 fL (9.0-12.2); MONOCYTES # (AUTO) 1.1 10^3/uL (0.0-1.0); MONOCYTES % (AUTO) 7 % (0-12); NEUTROPHILS # (AUTO) 9.7 10^3/uL (1.8-7.8); NEUTROPHILS % (AUTO) 63 % (42-75); PLATELET COUNT 360 10^3/uL (130-400); WHITE BLOOD COUNT 15.5 10^3/uL (4.3-11.0)
[2023-03-28] MEDS ORDERED: ASPIRIN 81 MG CHEWABLE TABLET ONE (06:35)
[2023-03-28] MEDS: ASPIRIN 81 MG CHEWABLE TABLET PO SCH (06:36)
[2023-03-28 06:45] LABS: ALBUMIN 4.2 GM/DL (3.2-4.5); POTASSIUM 3.9 MMOL/L (3.6-5.0)
[2023-03-28 06:46] LABS: CALCIUM 9.1 MG/DL (8.5-10.1)
[2023-03-28 06:46] LABS: BACTERIA,URINE NEGATIVE /HPF
[2023-03-28 06:47] LABS: TOTAL PROTEIN 6.8 GM/DL (6.4-8.2)
[2023-03-28 06:49] LABS: BILIRUBIN,TOTAL 0.2 MG/DL (0.1-1.0)
[2023-03-28 06:51] LABS: CREATININE SERUM 5.75 MG/DL (0.60-1.30)
[2023-03-28 06:57] LABS: BASOPHILS % (MANUAL) 1 %; EOSINOPHILS % (MANUAL) 19 %; LYMPHOCYTES % (MANUAL) 20 %; MONOCYTES % (MANUAL) 4 %; NEUTROPHILS % (MANUAL) 56 %; RBC MORPH NORMAL
[2023-03-28] MEDS ORDERED: inSUlin (REGULAR) HUMAN 1 UNIT/0.01 ML (CHARGE PER UNIT) IV STA (06:58)
[2023-03-28] MEDS ORDERED: inSUlin (REGULAR) HUMAN 1 UNIT/0.01 ML (CHARGE PER UNIT) SC STA (06:58)
[2023-03-28] MEDS ORDERED: CALCIUM CARBONATE 500 MG CHEW TABLET PO PRN (10:30)
[2023-03-28] MEDS ORDERED: ONDANSETRON 4 MG (ZOFRAN) ORAL DISSOLVE TAB PO PRN (10:30)
[2023-03-28] MEDS ORDERED: polyethylene glycoL POWDER 17 GM (MIRALAX) PACK PO PRN (10:30)
[2023-03-28] MEDS ORDERED: NS IV 500 ML 500 ML IV PRN (10:30)
[2023-03-28] MEDS: POTASSIUM CL 10MEQ/50ML IVPB 50 ML IV SCH ×5 (10:30→13:37)
[2023-03-28] MEDS ORDERED: diphenhydrAMINE 25 MG TAB (BENADRYL) PO PRN (10:30)
[2023-03-28] MEDS: 1/2 NS IV SOLUTION 1000 ML 1,000 ML IV SCH ×2 (10:30→14:45)
[2023-03-28] MEDS ORDERED: BISACODYL 10 MG SUPPOSITORY PR PRN (10:30)
[2023-03-28] MEDS ORDERED: NS IV 1000 ML 1,000 ML IV SCH (10:30)
[2023-03-28] MEDS ORDERED: diphenhydrAMINE 50 MG/ML INJ (BENADRYL) IVP PRN (10:30)
[2023-03-28] MEDS ORDERED: ONDANSETRON 4 MG/2 ML (SDV) Z0FRAN IV PRN (10:30)
[2023-03-28] MEDS ORDERED: ACETAMINOPHEN 325 MG TABLET PO PRN (10:30)
[2023-03-28] MEDS ORDERED: ANTACID SUSP 30 ML UDC (MYLANTA) PO PRN (10:30)
[2023-03-28] MEDS ORDERED: D5 1/2 NS 1,000 ML IV 1,000 ML IV SCH (10:30)
[2023-03-28] MEDS ORDERED: LACTULOSE SYRUP 10GM/15ML (ENULOSE) 30ML UDC PO PRN (10:30)
[2023-03-28] MEDS ORDERED: HYDROmorphone 2 MG/ML VIAL (DILAUDID) IV PRN (10:30)
[2023-03-28] MEDS ORDERED: MELATONIN 3 MG TABLET PO PRN (10:30)
[2023-03-28] MEDS ORDERED: MILK OF MAGNESIA 400 MG/5 ML 30 ML UDC PO PRN (10:30)
[2023-03-28 10:36] VITALS: BP 145/103
[2023-03-28] MEDS ORDERED: RT-ALBUTEROL SULF 2.5 MG/3 ML PRE-MIX VIAL INH PRN (10:45)
--- NOTE | 2023-03-28 11:14 | Diagnostic Imaging Report ---
INDICATION: Chest pain FINDINGS: The lungs are clear. No failure, effusion or pneumothorax. IMPRESSION: No acute appearing abnormality. Dictated by: Dictated on workstation # [id number]
[2023-03-28 11:37] LABS: POTASSIUM 3.3 MMOL/L (3.6-5.0)
[2023-03-28 11:38] LABS: CALCIUM 8.3 MG/DL (8.5-10.1)
[2023-03-28 11:42] LABS: CREATININE SERUM 4.67 MG/DL (0.60-1.30)
[2023-03-28] MEDS ORDERED: CALC0.253 PO (12:15)
[2023-03-28] MEDS ORDERED: PRED5TAB PO (12:15)
[2023-03-28] MEDS ORDERED: ZONI100C79 PO (12:15)
[2023-03-28] MEDS ORDERED: PROP60TA17 PO (12:15)
[2023-03-28] MEDS ORDERED: AMLO-250 PO (12:15)
[2023-03-28] MEDS ORDERED: INSU100V16 (12:15)
[2023-03-28] MEDS ORDERED: SERT-414 PO (12:15)
[2023-03-28] MEDS ORDERED: LISI5TAB20 PO (12:15)
[2023-03-28] MEDS ORDERED: NF-SODBICA PO (12:15)
[2023-03-28] MEDS ORDERED: PATIENT MAY USE OWN MEDS, ALL MC SCH (13:00)
--- NOTE | 2023-03-28 13:38 | History & Physical-Hospitalist ---
DMITRY MAGANA 03/28/23 1338: History of Present Illness HPI/Chief Complaint Peña Larson is a 32yo M with past medical history of insulin dependent DM, HTN, seizure disorder, CKD, and major depressive disorder. He presented to the ED on 03/28 and was found to be in DKA with a glucose over 500, metabolic acidosis, and an anion gap of 22. He was given insulin and fluids and admitted for further management of his DKA. He woke up this morning around 5am with nausea and vomiting. He has been in DKA before so he checked his sugar which read HI at home. This prompted him and his mother to come to the ED. His symptoms of N/V are resolved and his sugars are improving by the time of my exam. He reports issues with his continuous glucose monitor for the last few days. The patient has recently moved here from [place] and is in the process of reestablishing with PCP, endocrine, and neurology. He initially also complained of chest pain in the ED which quickly resolved. EKG and troponin were negative for ischemic changes. Source: patient, family Exam Limitations: no limitations Date Seen 03/28/23 Attending Physician Shital Jefferson MD PCP Admitting Physician: Nadege Amezquita DO Attending Physician: Nadege Amezquita DO Referring Physician Date of Admission Mar 28, 2023 at 10:02 Home Medications & Allergies Home Medications Reviewed patient Home Medication Reconciliation performed by pharmacy medication reconciliations medical equipment repair technician and/or nursing. Patients Allergies have been reviewed. Allergies Allergies Coded Allergies Penicillins (Verified Allergy, Unknown, 03/03/20) levetiracetam (Verified Allergy, Unknown, 11/14/17) promethazine (Verified Allergy, Unknown, 03/03/20) Past Raqmizf-Gofskc-Ynvcrb Hx Patient Social History Tobacco Use?: No Smoking Status: Former Smoker Smokeless Tobacco Frequency: Never a User Use of E-Cig and/or Vaping dev: Yes E-Cig or Vaping type used: Nicotine, Marijuana Use of E-Cig and/or Vaping Sukhwinder: Light User Substance use?: Yes Substance type: Marijuana Additional substance use comme: LAST USE 03/27/23 Substance frequency: Daily Alcohol Use?: Yes Alcohol type: Beer Alcohol Frequency: Rarely Pt feels they are or have been: No Immunizations Up To Date First/Initial COVID19 Vaccinat: ONLY 1 VACCINE PED Vaccines UTD: Yes Current Status Primary Language: Cymro Preferred Spoken Language: Cymro Is interpretation needed?: No Implanted or Applied Medical D: Port-a-cath Past Medical History Pneumonia Hypertension Headaches /Migraines, Seizure Disorder Sexually Transmitted Disease: No Renal Failure Diabetes, Insulin dep Suicide Attempts Blood Disorders: No kidney biopsies Ports d/t venous insufficiency Family Medical History No Pertinent Family Hx Review of Systems Constitutional: No chills, No diaphoresis, No fever EENTM: No hearing loss, No vision loss Respiratory: No cough, No short of breath, No wheezing Cardiovascular: No chest pain, No palpitations, No syncope Gastrointestinal: No abdominal pain; nausea; No vomiting Genitourinary: No dysuria; frequency; No hematuria Skin: No change in color Psychiatric/Neurological: Denies Headache, Denies Pre-Existing Deficit, Denies Tremors Physical Exam Physical Exam Vital Signs Vital Signs - First Documented Capillary Refill : Less Than 3 Seconds Height, Weight, BMI Height: 5'1.00" Weight: 132lbs. oz. 59.354502fz; 20.49 BMI Method:Stated General Appearance: No Apparent Distress, WD/WN HEENT: PERRL/EOMI, Moist Mucous Membranes Neck: Supple; No JVD Respiratory: Lungs Clear, Normal Breath Sounds, No Accessory Muscle Use, No Respiratory Distress Cardiovascular: Regular Rate, Rhythm, Normal Peripheral Pulses Gastrointestinal: Non Tender, Soft; No Distended Rectal: Deferred Extremity: Normal Capillary Refill, No Calf Tenderness, No Pedal Edema Neurologic/Psychiatric: Alert, Oriented x3, Normal Mood/Affect Skin: Normal Color, Warm/Dry Results Results/Procedures Labs Laboratory Tests 03/28/23 06:15 03/28/23 11:13 Patient resulted labs reviewed. Imaging: Reviewed Imaging Films, Reviewed Imaging Report Assessment/Plan Admission Diagnosis Diabetic Ketoacidosis Admission Status: Inpatient Order (span 2 midnights) Reason for Inpatient Admission: DKA Assessment and Plan Diabetic Ketoacidosis Hypokalemia Started on insulin drip titrate per protocol, currently only on 1unit per hour Coming out of DKA quickly Initial glucose of 581 down to 111 at last check Hourly accuchecks Initial anion gap of 22 has closed to 11 VBG showed significant metabolic acidosis with pH of 7.11 and HCO3 of 11, obtain ABG Potassium initially 3.9 has fallen to 3.3 with insulin therapy, replace per protocol B hydroxybutarate level was 6.2 on admit has dropped to 0.78 Continue IV fluids D5 1/2 NS Obtain Hgb A1c Carb consistent diet Monitor CMP TeleICU consulted appreciate recs Acute Kidney Injury on CKD Creatinine of 5.75 on admit Nephro following BUN of 65 and EGFR of 13 on admit IV fluids as above Has not required dialysis in the past, has spoken about it to his vp lab before Avoid nephrotoxic medications Monitor urine output Seizure disorder Continue home zonisamide 400mg daily N/V resolved, zofran as needed Diet- Carb consistent DVT ppx- heparin 5000 units SQ q8hr Code status- Full NADEGE AMEZQUITA DO 03/29/23 0528: History of Present Illness Time Seen by a Provider: 11:00 Past Uwflsdi-Ucqwer-Abgovp Hx Patient Social History Marrital Status: single Employed/Student: unemployed Review of Systems Constitutional: see HPI Physical Exam Physical Exam General Appearance: No Apparent Distress, Chronically ill, Thin Respiratory: Lungs Clear, Normal Breath Sounds Cardiovascular: Regular Rate, Rhythm Assessment/Plan Admission Diagnosis Admission Status: Inpatient Order (span 2 midnights) Reason for Inpatient Admission: dka Supervisory-Addendum Brief Verification & Attestation Participated in pt care: history, MDM, physical Personally performed: exam, history, MDM, supervision of care Care discussed with: Medical Student Procedures: n/a Results interpretation: Verified all documentation Verification and Attestation of Medical Student E/M Service A medical student performed and documented this service in my presence. I reviewed and verified all information documented by the medical student and made modifications to such information, when appropriate. I personally performed the physical exam and medical decision making. Nadege Amezquita Mar 29, 2023,05:28 DMITRY MAGANA Mar 28, 2023 13:38 NADEGE AMEZQUITA DO Mar 29, 2023 05:28
[2023-03-28] MEDS: SODIUM BICARBONATE 650 MG TABLET PO SCH ×2 (15:03→22:52)
[2023-03-28] MEDS: inSUlin ASPART (NovoLOG) 1 UNIT/0.01 ML (CHARGE PER UNIT) SC SCH ×2 (15:04→21:07)
[2023-03-28] MEDS: NS IV 1000 ML 1,000 ML IV SCH ×2 (15:11→23:09)
--- NOTE | 2023-03-28 15:20 | Tele-ICU Consult ---
History of Present Illness History of Present Illness Date Seen by Provider: Mar 28, 2023 Time Seen by Provider: 13:02 Date of Admission (Tele-ICU Physician , consultation as per request of PCP Service provided via interactive audio and video telecommunications E-CARE system to a patient admitted to ICU bed in [facility]. Available chart/ vitals / labs / Images reviewed H&P is from ER notes Patient's information available about PMH, Shx, Fhx allergy reviewed inEMR. ROS as per chart and RN report Now in ICU, hemodynamically stable Video assessment done using teleICU camera, rest of exam as per RN Discussed with RN. Hospital course: (03/28) 32y/o M admitted with DKA & chronic renal failure A/P DKA -Unclear precipitant, No suspicious for new infection *Insulin drip, continue to monitor for resolution of acidosis, AG and electrolytes. Continue hydration. *Tx Gastroparesis TC -Creatinine unchanged from 5 years ago, -nephrology consulted - monitor K on insulun gtt = cont bicarb po Met acidosis- by VBG ( renal failure and DKA 0 h/o Sz dz - as per chart , no AEDs on profile - as per PCP as per chart - on prednisone - ? indication , to confirm Lines : , (Central Line Necessity Reviewed) Friend: OG: Nutrition: Analgesia: Anxiety/ delirium VTE Prophylaxis: Stress Ulcer Prophylaxis: Plans in collaboration with bedside consultants and IM MDs. Discussed with RN to reach out if any questions or concerns A total of 20 minutes of critical care time was devoted to this patient today, required to treat and/or prevent further deterioration of critical care condition ( as above ) . I am remotely monitoring this patient from [place]. I am unable to do the bedside exam, and history/physical and pertinent information is taken from other notes in the computer and bedside staff. . History of Present Illness (Tele-ICU Physician , consultation as per request of PCP Service provided via interactive audio and video telecommunications E-CARE system to a patient admitted to ICU bed in [facility]. Available chart/ vitals / labs / Images reviewed H&P is from ER notes Patient's information available about PMH, Shx, Fhx allergy reviewed inEMR. ROS as per chart and RN report Now in ICU, hemodynamically stable Video assessment done using teleICU camera, rest of exam as per RN Discussed with RN. Hospital course: (03/28) 32y/o M admitted with DKA & chronic renal failure A/P DKA -Unclear precipitant, No suspicious for new infection *Insulin drip, continue to monitor for resolution of acidosis, AG and electrolytes. Continue hydration. *Tx Gastroparesis TC -Creatinine unchanged from 5 years ago, -nephrology consulted - monitor K on insulun gtt = cont bicarb po Met acidosis- by VBG ( renal failure and DKA 0 h/o Sz dz - as per chart , no AEDs on profile - as per PCP as per chart - on prednisone - ? indication , to confirm Lines : , (Central Line Necessity Reviewed) Friend: OG: Nutrition: Analgesia: Anxiety/ delirium VTE Prophylaxis: Stress Ulcer Prophylaxis: Plans in collaboration with bedside consultants and IM MDs. Discussed with RN to reach out if any questions or concerns A total of 20 minutes of critical care time was devoted to this patient today, required to treat and/or prevent further deterioration of critical care condition ( as above ) . I am remotely monitoring this patient from another state. I am unable to do the bedside exam, and history/physical and pertinent information is taken from other notes in the computer and bedside staff. . Allergies and Home Medications Allergies Coded Allergies: Penicillins (Verified Allergy, Unknown, 03/03/20) levetiracetam (Verified Allergy, Unknown, 11/14/17) promethazine (Verified Allergy, Unknown, 03/03/20) Home Medications Amlodipine Besylate 5 Mg Tablet, 5 MG PO DAILY, (Reported) LAST FILLED 10-31-2022 #90/ DAY SUPPLY Calcitriol 0.25 Mcg Capsule, 0.25 MG PO HS, (Reported) Insulin Aspart 100 Unit/Ml Susp, UNITS PER PUMP, (Reported) Lisinopril 5 Mg Tablet, 5 MG PO DAILY, (Reported) LAST FILLED 08-13-2022 #30/ DAY SUPPLY Prednisone 5 Mg Tablet, 5 MG PO DAILY, (Reported) LAST FILLED 12-04-2022 #90 DAY SUPPLY Propranolol HCl 60 Mg Tablet, 60 MG PO HS, (Reported) Sertraline HCl 100 Mg Tablet, 150 MG PO DAILY, (Reported) TAKES 1 & (100MG) TABS Sodium Bicarbonate 650 Mg Tablet, 1,300 MG PO TID, (Reported) TAKES 2 (650MG) TABS LAST FILLED 10-31-2022 #180/30DS Zonisamide 100 Mg Capsule, 400 MG PO HS, (Reported) TAKES 4 (100MG) CAPS Past Medical/Social/Family Hx Patient Social History Tobacco Use?: No Smoking Status: Former Smoker Smokeless Tobacco Frequency: Never a User Use of E-Cig and/or Vaping dev: Yes E-Cig or Vaping type used: Nicotine, Marijuana E-Cig and/or Vaping Freq: Light User Substance use?: Yes Substance type: Marijuana LAST USE 03/27/23 Substance frequency: Daily Alcohol Use?: Yes Alcohol type: Beer Alcohol Frequency: Rarely Pt stated abuse/neglect: No Immunizations Up To Date First/Initial COVID19 Vaccinat: ONLY 1 VACCINE Current Status Primary Language: Nepalese Preferred Spoken Language: Nepalese Is interpretation needed?: No Implanted or Applied Medical D: Port-a-cath Past Medical History kidney biopsies Ports d/t venous insufficiency Review of Systems Constitutional: other Focused Exam Height, Weight, BMI Height: 5'1.00" Weight: 132lbs. oz. 59.162705nq; 20.49 BMI Method:Stated Exam Exam Patient acknowledged, consented, and participated in this virtual visit which was conducted using real time audio/video Vital Signs Date Time Temp Pulse Resp B/P (MAP) Pulse Ox O2 Delivery O2 Flow Rate FiO2 03/28/23 15:00 73 15 122/94 (103) 98 Room Air 03/28/23 14:00 73 11 128/79 (95) 97 Room Air 03/28/23 13:00 80 26 132/87 (102) 97 Room Air 03/28/23 12:27 74 03/28/23 12:00 80 14 145/91 (109) 100 Room Air 03/28/23 11:00 70 12 132/83 (99) 97 Room Air 03/28/23 10:36 36.0 70 99 03/28/23 10:33 73 10 136/90 (105) 100 Room Air 03/28/23 10:30 99 Room Air 03/28/23 10:30 35.6 03/28/23 09:59 70 20 145/103 99 Room Air 03/28/23 05:55 Room Air 03/28/23 05:55 36.0 106 18 163/113 (130) 100 Room Air Height & Weight Height: 5'1.00" Weight: 132lbs. oz. 59.883523zd; 20.49 BMI Method:Stated General Appearance: No Apparent Distress, WD/WN, Other HEENT: PERRL/EOMI, Moist Mucous Membranes Neck: Supple Respiratory: Lungs Clear, Normal Breath Sounds, No Accessory Muscle Use, No Respiratory Distress Cardiovascular: Regular Rate, Rhythm, Normal Peripheral Pulses Capillary Refill: Less Than 3 Seconds Extremity: Normal Capillary Refill, No Calf Tenderness, No Pedal Edema Neurologic/Psychiatric: Alert, Oriented x3, Normal Mood/Affect Skin: Normal Color, Warm/Dry Results Lab Laboratory Tests 03/28/23 06:15 03/28/23 11:13 Assessment/Plan Assessment/Plan 1 NATE HIGGINBOTHAM MD Mar 28, 2023 15:20
--- NOTE | 2023-03-28 16:48 | Consultation ---
History of Present Illness History of Present Illness Patient Consulted On(pia/time) 03/28/23 16:44 Date Seen by Provider: Mar 28, 2023 (n) Time Seen by Provider: 16:44 Reason for Visit: tc History of Present Illness is a very pleasant 32 y/o WM with h/o type 1 dm and minimal change ds leading to CKD 4 who was previously followed by me now returns to the area and being admitted with DKA. Pt has been aware of his CKD 4 for a long time. Has a h/o seizure disorder as well. Allergies and Home Medications Allergies Coded Allergies: Penicillins (Verified Allergy, Unknown, 03/03/20) levetiracetam (Verified Allergy, Unknown, 11/14/17) promethazine (Verified Allergy, Unknown, 03/03/20) Patient Home Medication List Home Medication List Reviewed: Yes Amlodipine Besylate (Amlodipine Besylate) 5 Mg Tablet, 5 MG PO DAILY, (Reported) Entered as Reported by: CORNELIUS EVANS on 03/28/231214 Last Action: Continued Calcitriol (Calcitriol) 0.25 Mcg Capsule, 0.25 MG PO HS, (Reported) Entered as Reported by: CORNELIUS EVANS on 03/28/231214 Last Action: Continued Insulin Aspart (Novolog) 100 Unit/Ml Susp, UNITS PER PUMP, (Reported) Entered as Reported by: CORNELIUS EVANS on 03/28/231214 Last Action: Held Lisinopril (Lisinopril) 5 Mg Tablet, 5 MG PO DAILY, (Reported) Entered as Reported by: CORNELIUS EVANS on 03/28/231214 Last Action: Held Prednisone (Prednisone) 5 Mg Tablet, 5 MG PO DAILY, (Reported) Entered as Reported by: CORNELIUS EVANS on 03/28/231214 Last Action: Continued Propranolol HCl (Propranolol HCl) 60 Mg Tablet, 60 MG PO HS, (Reported) Entered as Reported by: CORNELIUS EVANS on 03/28/231214 Last Action: Converted Sertraline HCl (Sertraline HCl) 100 Mg Tablet, 150 MG PO DAILY, (Reported) Entered as Reported by: CORNELIUS EVANS on 03/28/231214 Last Action: Continued Sodium Bicarbonate (Sodium Bicarbonate) 650 Mg Tablet, 1,300 MG PO TID, (Reported) Entered as Reported by: CORNELIUS EVANS on 03/28/23 1215 Last Action: Continued Zonisamide (Zonisamide) 100 Mg Capsule, 400 MG PO HS, (Reported) Entered as Reported by: CORNELIUS EVANS on 03/28/23 121 Last Action: Continued Discontinued Medications Atorvastatin Calcium (Lipitor 10 Mg) 10 Mg Tablet, 1 EACH PO DAILY, (Reported) Discontinued Reason: No Longer Taking Entered as Reported by: STAR ACSTELAN on 08/17/10 130 Last Action: Discontinued Chlorothiazide (Chlorothiazide) 500 Mg Tablet, 500 MG PO DAILY, (Reported) Discontinued Reason: No Longer Taking Entered as Reported by: STAR CASTELAN on 08/17/10 130 Last Action: Discontinued Clonazepam (Clonazepam) 1 Mg Tablet, (Reported) Discontinued Reason: No Longer Taking Entered as Reported by: RAFFAELE JI on 04/23/18 1013 Last Action: Discontinued Cyclosporine, Modified (Cyclosporine Modified) 100 Mg Capsule, 125 MG PO BID, (Reported) Discontinued Reason: No Longer Taking Entered as Reported by: STAR CASTELAN on 08/17/10 130 Last Action: Discontinued Fluticasone Propionate (Flonase [place] (Non-Formulary)) 50 Mcg/16 G [place], 50 MCG NA DAILY, (Reported) Discontinued Reason: No Longer Taking Entered as Reported by: STAR CASTELAN on 08/17/10 130 Last Action: Discontinued Hydrocodone Bit/Acetaminophen (Lortab 5 Mg Tablet) 1 Tab Tab, 1 TAB PO Q4H PRN for pain Discontinued Reason: No Longer Taking Prescribed by: MAYELA LOPEZ on 11/14/17 4800 Last Action: Discontinued Hydrocodone Bit/Acetaminophen (Lortab 5 Mg Tablet) 1 Each Tablet, 1 EACH PO Q4H PRN for PAIN-MODERATE TO SEVERE Discontinued Reason: No Longer Taking Prescribed by: SIMONE MADISON on 04/23/18 1352 Last Action: Discontinued Lamotrigine (Lamictal) 100 Mg Tablet, 125 MG PO BID, (Reported) Discontinued Reason: No Longer Taking Entered as Reported by: STAR CASTELAN on 08/17/10 130 Last Action: Discontinued Lisinopril (Zestril) 40 Mg Tablet, 1 EACH PO DAILY, (Reported) Discontinued Reason: No Longer Taking Entered as Reported by: STAR CASTELAN on 08/17/101303 Last Action: Discontinued Multivitamins (Multiple Vitamin) 1 Tab Tablet, 1 TAB PO DAILY, (Reported) Discontinued Reason: No Longer Taking Entered as Reported by: STAR CASTELAN on 08/17/101506 Last Action: Discontinued [place] 3 Polyunsat Fatty Acids (Fish Oil) 1,000 Mg Cap, 900 MG PO DAILY, (Reported) Discontinued Reason: No Longer Taking Entered as Reported by: STAR CASTELAN on 08/17/101506 Last Action: Discontinued Ondansetron (Zofran Odt) 4 Mg Tab.rapdis, 4 MG SL Q4H PRN for NAUSEA/VOMITING- 1ST LINE Discontinued Reason: No Longer Taking Prescribed by: SIMONE MADISON on 04/23/18 1408 Last Action: Discontinued Prednisone (Prednisone) 10 Mg Tab, 10 MG PO QOD, (Reported) Discontinued Reason: No Longer Taking Entered as Reported by: STAR CASTELAN on 08/17/101303 Last Action: Discontinued Sawpalmtofrtxt/Zinc Picolinate (Saw [place] Capsule) 1 Each Capsule, 1 EACH PO BID, (Reported) Discontinued Reason: No Longer Taking Entered as Reported by: STAR CASTELAN on 08/17/101506 Last Action: Discontinued Sertraline Hcl (Sertraline Hcl) 50 Mg Tablet, 50 MG PO DAILY, (Reported) Discontinued Reason: No Longer Taking Entered as Reported by: STAR CASTELAN on 08/17/101303 Last Action: Discontinued Trazodone Hcl (Trazodone Hcl) 150 Mg Tablet, 100 MG PO PRN, (Reported) Discontinued Reason: No Longer Taking Entered as Reported by: STAR CASTELAN on 08/17/101303 Last Action: Discontinued [Insulin Pump/Novolog] , (Reported) Discontinued Reason: No Longer Taking Entered as Reported by: STAR CASTELAN on 08/17/101303 Last Action: Discontinued Past Ftykqdf-Mvheik-Njuklg Hx Patient Social History Tobacco Use?: No Smoking Status: Former Smoker Smokeless Tobacco Frequency: Never a User Use of E-Cig and/or Vaping dev: Yes E-Cig or Vaping type used: Nicotine, Marijuana Use of E-Cig and/or Vaping Sukhwinder: Light User Substance use?: Yes Substance type: Marijuana Additional substance use comme: LAST USE 03/27/23 Substance frequency: Daily Alcohol Use?: Yes Alcohol type: Beer Alcohol Frequency: Rarely Pt feels they are or have been: No Immunizations Up To Date PED Vaccines UTD: Yes First/Initial COVID19 Vaccinat: ONLY 1 VACCINE COVID19 Vaccine Spare Person: [employer] Past Medical History Surgeries: Yes (5 groshong placements; kidney bx's.) Respiratory: Yes Pneumonia Cardiac: Yes Hypertension Neurological: Yes Headaches /Migraines, Seizure Disorder Reproductive Disorders: No Sexually Transmitted Disease: No Genitourinary: Yes Renal Failure Gastrointestinal: Yes Musculoskeletal: No Endocrine: Yes Diabetes, Insulin dep HEENT: No Cancer: No Psychosocial: Yes Suicide Attempts Integumentary: No Blood Disorders: No Family Medical History No Pertinent Family Hx Review of Systems-General Constitutional: see HPI Physical Exam-General Problems Physical Exam Vital Signs Vital Signs - First Documented Capillary Refill : Less Than 3 Seconds Assessment/Plan Assessment/Plan Admission Diagnosis/Plan TC on CKD 4 primary ds: dm and minimal change ds baseline eGFR 18ml/min TC due to volume depletion in setting of DKA encourage supportive care transfer to [facility] if cr rises renally dose meds avoid nephrotoxins monitor urine outpt r/o retention of urine DKA encourage control of blood sugars at home on dka protocol primary managing HTN gaol <130/80 continue to monitor anemia goal 10-11 will monitor transfuse only leukocyte reduced blood mineral bone ds of ckd renal diet monitor corky basurto NADINE MD Mar 28, 2023 16:48
[2023-03-28] MEDS ORDERED: GLUCAGON EMERGENCY 1 MG/KIT IM ONE (21:00)
[2023-03-28] MEDS ORDERED: GLUCAGON EMERGENCY 1 MG/KIT ONE (21:01)
[2023-03-28] MEDS: PROPRANOLOL 60 MG TABLET PO SCH (22:51)
[2023-03-28] MEDS: SENNOSIDES 8.6 MG (SENOKOT) TAB PO SCH (22:52)
[2023-03-28] MEDS: DOCUSATE SODIUM 100 MG CAPSULE PO SCH (22:52)
[2023-03-28] MEDS: CALCITRIOL 0.25 MCG CAPSULE PO SCH (22:53)
[2023-03-28] MEDS: ZONISAMIDE 100 MG CAP (ZONEGRAN) NON-FORMULARY PO SCH (22:54)
[2023-03-29 04:30] LABS: BASOPHILS # (AUTO) 0.1 10^3/uL (0.0-0.1); BASOPHILS % (AUTO) 1 % (0-10); EOSINOPHILS # (AUTO) 2.3 10^3/uL (0.0-0.3); EOSINOPHILS % (AUTO) 20 % (0-10); HEMATOCRIT 32 % (40-54); HEMOGLOBIN 11.2 g/dL (13.3-17.7); LYMPHOCYTES # (AUTO) 2.6 10^3/uL (1.0-4.0); LYMPHOCYTES % (AUTO) 23 % (12-44); MEAN CORPUSCULAR HEMOGLOBIN 30 pg (25-34); MEAN CORPUSCULAR HGB CONC 35 g/dL (32-36); MEAN CORPUSCULAR VOLUME 86 fL (80-99); MEAN PLATELET VOLUME 9.7 fL (9.0-12.2); MONOCYTES # (AUTO) 0.5 10^3/uL (0.0-1.0); MONOCYTES % (AUTO) 4 % (0-12); NEUTROPHILS # (AUTO) 5.9 10^3/uL (1.8-7.8); NEUTROPHILS % (AUTO) 52 % (42-75); PLATELET COUNT 316 10^3/uL (130-400); WHITE BLOOD COUNT 11.4 10^3/uL (4.3-11.0)
[2023-03-29 04:40] LABS: ALBUMIN 3.4 GM/DL (3.2-4.5); POTASSIUM 3.6 MMOL/L (3.6-5.0)
[2023-03-29 04:42] LABS: TOTAL PROTEIN 5.5 GM/DL (6.4-8.2)
[2023-03-29 04:44] LABS: BILIRUBIN,TOTAL 0.3 MG/DL (0.1-1.0)
[2023-03-29 04:45] LABS: PHOSPHORUS 4.2 MG/DL (2.3-4.7)
[2023-03-29 04:46] LABS: CREATININE SERUM 4.09 MG/DL (0.60-1.30)
[2023-03-29 04:49] LABS: MAGNESIUM 1.5 MG/DL (1.6-2.4)
[2023-03-29 04:52] LABS: ABG BASE EXCESS -10.4 MMOL/L (-2.5-2.5); ABG OXYGEN SATURATION 99 % (94-100); ABG PCO2 37 MMHG (35-45); ABG PO2 94 MMHG (79-93); ABG TCO2 16.8 MMOL/L (21.0-31.0); ALLENS TEST YES-POS
[2023-03-29 04:53] LABS: PATIENT TEMP 36.4
[2023-03-29 04:54] LABS: INSPIRED O2 100%; VENTILATOR NO
[2023-03-29 04:55] LABS: ABG PH 7.25 (7.37-7.43)
[2023-03-29] MEDS ORDERED: KCL 20 MEQ TAB (K-DUR) PO SCH (06:00)
[2023-03-29] MEDS ORDERED: POTASSIUM CL 10MEQ/50ML IVPB 50 ML IV SCH (06:00)
[2023-03-29] MEDS ORDERED: MAGNESIUM 1 GM/100 ML IVPB 100 ML IV SCH (06:00)
[2023-03-29] MEDS: inSUlin ASPART (NovoLOG) 1 UNIT/0.01 ML (CHARGE PER UNIT) SC SCH ×4 (06:02→20:32)
[2023-03-29] MEDS: predniSONE 5 MG TAB PO SCH (08:23)
[2023-03-29] MEDS: NS IV 1000 ML 1,000 ML IV SCH ×3 (08:23→23:02)
[2023-03-29] MEDS: SODIUM BICARBONATE 650 MG TABLET PO SCH ×3 (08:23→19:52)
[2023-03-29] MEDS: amLODIPine 5 MG TABLET PO SCH (08:23)
[2023-03-29] MEDS: ASPIRIN 81 MG CHEWABLE TABLET PO SCH (08:23)
[2023-03-29] MEDS: SERTRALINE 100 MG (ZOLOFT) TAB PO SCH (08:24)
--- NOTE | 2023-03-29 08:24 | Diagnostic Imaging Report ---
INDICATION: Diabetic ketoacidosis. Frontal chest obtained at 03:58 a.m. compared to 03/28/2023 FINDINGS: Heart and mediastinal silhouette are normal in appearance. Port-A-Cath is unchanged. There is no focal infiltrate or pneumothorax or pleural fluid. IMPRESSION: No acute process in the chest. Dictated by: Dictated on workstation # [id number]
[2023-03-29] MEDS: DOCUSATE SODIUM 100 MG CAPSULE PO SCH ×2 (08:25→19:55)
[2023-03-29] MEDS: SENNOSIDES 8.6 MG (SENOKOT) TAB PO SCH ×2 (08:25→19:55)
[2023-03-29] MEDS: MAGNESIUM 1 GM/100 ML IVPB 100 ML IV SCH ×3 (08:45→11:26)
--- NOTE | 2023-03-29 08:46 | Tele-ICU Progress Note ---
Subjective Date Seen by a Provider: Mar 29, 2023 Time Seen by a Provider: 08:45 Subjective/Events-last exam Tele-ICU Physician , Progress Note ) Service provided via interactive audio and video telecommunications E-CARE system to a patient admitted to ICU bed in [facility]. Patient is seen today due to persistent need of ICU care Available chart/ vitals / labs / Images reviewed Video assessment done using teleICU camera, rest of exam as per RN Discussed with RN Events overnight : Now in ICU, hemodynamically stable Video assessment done using teleICU camera, rest of exam as per RN Discussed with RN. Hospital course: (03/28) 32y/o M admitted with DKA & chronic renal failure 03/29-insulin gtt off. replace mag A/P DKA -Unclear precipitant, No suspicious for new infection *AG closed, Insulin drip gtt. Ok to transtion to SQ. *Tx Gastroparesis TC: Improving Met acidosis- by VBG -Will repeat however likely improving. h/o Sz dz - as per chart , no AEDs on profile - as per PCP Lines: Peripheral , (Central Line Necessity Reviewed) Friend:- OG:- Nutrition: DM diet Analgesia: Anxiety/ delirium VTE Prophylaxis: lovenox Stress Ulcer Prophylaxis:- Plans in collaboration with bedside consultants and IM MDs. Discussed with RN to reach out if any questions or concerns A total of 20 minutes of critical care time was devoted to this patient today, required to treat and/or prevent further deterioration of critical care condition ( as above) . I am remotely monitoring this patient from another state. I am unable to do the bedside exam, and history/physical and pertinent information is taken from other notes in the computer and bedside staff. . Sepsis Event Evaluation Height, Weight, BMI Height: 5'1.00" Weight: 132lbs. oz. 59.068745ir; 20.53 BMI Method:Stated Exam Exam Patient acknowledged, consented, and participated in this virtual visit which was conducted using real time audio/video Vital Signs Date Time Temp Pulse Resp B/P (MAP) Pulse Ox O2 Delivery O2 Flow Rate FiO2 03/29/23 07:20 36.4 03/29/23 07:15 67 03/29/23 07:00 78 17 152/92 (112) 98 Room Air 03/29/23 06:00 72 13 130/70 (90) 99 Room Air 03/29/23 05:00 59 18 142/83 (102) 100 Room Air 03/29/23 04:00 60 18 133/82 (99) 100 Room Air 03/29/23 04:00 99 Room Air 03/29/23 03:00 49 11 112/78 (89) 100 Room Air 03/29/23 02:00 54 14 130/78 (95) 100 Room Air 03/29/23 01:00 50 03/29/23 01:00 57 26 136/78 (97) 99 Room Air 03/29/23 00:00 55 13 136/79 (98) 100 Room Air 03/28/23 23:34 35.7 03/28/23 23:12 99 Room Air 03/28/23 23:00 46 12 130/88 (102) 100 Room Air 03/28/23 22:00 46 13 117/58 (77) 100 Room Air 03/28/23 21:00 47 119/62 (81) 99 Room Air 03/28/23 20:30 58 12 119/76 (90) 97 Room Air 03/28/23 20:00 99 Room Air 03/28/23 19:56 36.0 03/28/23 19:00 63 03/28/23 18:44 97 Room Air 03/28/23 18:00 63 19 140/82 (101) 98 Room Air 03/28/23 17:00 64 15 117/84 (95) 98 Room Air 03/28/23 16:00 99 Room Air 03/28/23 16:00 65 13 121/81 (94) 98 Room Air 03/28/23 15:57 36.0 03/28/23 15:00 73 15 122/94 (103) 98 Room Air 03/28/23 14:00 73 11 128/79 (95) 97 Room Air 03/28/23 13:00 80 26 132/87 (102) 97 Room Air 03/28/23 12:27 74 03/28/23 12:00 100 Room Air 03/28/23 12:00 80 14 145/91 (109) 100 Room Air 03/28/23 11:00 70 12 132/83 (99) 97 Room Air 03/28/23 10:36 36.0 70 99 03/28/23 10:33 73 10 136/90 (105) 100 Room Air 03/28/23 10:30 99 Room Air 03/28/23 10:30 35.6 03/28/23 09:59 70 20 145/103 99 Room Air I & O 03/29/23 07:00 Intake Total 4325 ml Output Total 2825 ml Balance 1500 ml Height & Weight Height: 5'1.00" Weight: 132lbs. oz. 59.960116wb; 20.53 BMI Method:Stated General Appearance: No Apparent Distress, Chronically ill, Thin HEENT: PERRL/EOMI Neck: Normal Inspection Respiratory: Lungs Clear, Normal Breath Sounds Cardiovascular: Regular Rate, Rhythm Capillary Refill: Less Than 3 Seconds Extremity: Normal Capillary Refill, Normal Inspection, Normal Range of Motion, Non Tender, No Calf Tenderness, No Pedal Edema, Other (mild increased warmth l eft knee; no erythema; normal ROM) Neurologic/Psychiatric: Alert, Oriented x3, No Motor/Sensory Deficits, Normal Mood/Affect, planning rn II-XII Norm as Tested Skin: Normal Color, Warm/Dry Results Lab Laboratory Tests 03/28/23 06:15 03/28/23 11:13 03/29/23 04:15 Assessment/Plan Assessment/Plan . JAMSHID GARCIA MD Mar 29, 2023 08:45
--- NOTE | 2023-03-29 11:46 | Progress Note - Hospitalist ---
DMITRY MAGANA 03/29/23 1146: Subjective HPI/CC On Admission Date Seen by Provider: Mar 29, 2023 Time Seen by Provider: 11:41 Peña Larson is a 32yo M with past medical history of insulin dependent DM, HTN, seizure disorder, CKD, and major depressive disorder. He presented to the ED on 03/28 and was found to be in DKA with a glucose over 500, metabolic acidosis, and an anion gap of 22. He was given insulin and fluids and admitted for further management of his DKA. He woke up this morning around 5am with nausea and vomiting. He has been in DKA before so he checked his sugar which read HI at home. This prompted him and his mother to come to the ED. His symptoms of N/V are resolved and his sugars are improving by the time of my exam. He reports issues with his continuous glucose monitor for the last few days. The patient has recently moved here from [place] and is in the process of reestablishing with PCP, endocrine, and neurology. He initially also complained of chest pain in the ED which quickly resolved. EKG and troponin were negative for ischemic changes. Subjective/Events-last exam Patient seen at bedside this morning resting comfortably. He reports feeling tired. Denies any nausea/vomiting. Is voiding urine without issue and had BM this morning. He is alert and oriented x3. In further discussion about his diabetes management he reports that his CGM was not functioning because he had not been in contact with his medical supplier since moving to [place] and had a change in insurance. He reports these issues are now resolved and his CGM is functioning and he has insulin. Denies any other issues at this time. Did have a low glucose of 26 last night, patient reported to nursing that he felt hot. Glucagon was administered with normalization of his glucose levels. Review of Systems General: No Chills, No Night Sweats; Fatigue HEENT: No Head Aches, No Visual Changes Pulmonary: No Dyspnea, No Cough Cardiovascular: No: Chest Pain, Palpitations Gastrointestinal: No: Nausea, Vomiting, Abdominal Pain Genitourinary: No Dysuria; Frequency; No Hematuria Neurological: No: Change in speech, Confusion Objective Exam Vital Signs Vital Signs Date Time Temp Pulse Resp B/P (MAP) Pulse Ox O2 Delivery O2 Flow Rate FiO2 03/29/23 11:31 36.9 03/29/23 10:00 83 17 159/104 (122) 98 Room Air Capillary Refill : Less Than 3 Seconds General Appearance: No Apparent Distress, WD/WN HEENT: PERRL/EOMI, Moist Mucous Membranes Neck: Supple; No JVD Respiratory: Lungs Clear, Normal Breath Sounds, No Accessory Muscle Use, No Respiratory Distress Cardiovascular: Regular Rate, Rhythm, Normal Peripheral Pulses Gastrointestinal: Non Tender, Soft; No Distended Rectal: Deferred Extremity: No Calf Tenderness, No Pedal Edema Neurologic/Psychiatric: Alert, Oriented x3, Normal Mood/Affect Skin: Normal Color, Warm/Dry Results/Procedures Lab Laboratory Tests 03/29/23 04:15 Patient resulted labs reviewed. Imaging: Reviewed Imaging Films, Reviewed Imaging Report Assessment/Plan Assessment and Plan Assess & Plan/Chief Complaint Diabetic Ketoacidosis Hypokalemia Started on insulin drip titrate per protocol, now off insulin drip Low glucose of 26 last night, glucagon administered with correction of glucose levels since Coming out of DKA quickly Initial glucose of 581 normalized within hours ACHS accuchecks Initial anion gap of 22 has closed to 12 Initial VBG showed significant metabolic acidosis with pH of 7.11 and HCO3 of 11 ABG 7.25, 37, 94, 16 consistent with metabolic acidosis from DKA Follow up VBG this morning showed improvement but still acidosis Sodium bicarb 1300mg TID, monitor for resolution of acidosis Potassium initially 3.9 had fallen to 3.3 with insulin therapy, replace per protocol, 3.6 this morning B hydroxybutarate level was 6.2 on admit has dropped to 0.78 Continue IV fluids 1L NS q8hr at 125mls/hr Hgb A1c of 10.5 Carb consistent diet Monitor CMP TeleICU consulted appreciate recs Move to 4th floor today Acute Kidney Injury on CKD Creatinine of 5.75 on admit Nephro following BUN of 65 and EGFR of 13 on admit IV fluids as above Has not required dialysis in the past, has spoken about it to his radiology receptionist before Avoid nephrotoxic medications Monitor urine output Creatinine elevated but improved to 4.09 this morning Seizure disorder Continue home zonisamide 400mg daily N/V resolved, zofran as needed Diet- Carb consistent DVT ppx- heparin 5000 units SQ q8hr Code status- Full NADEGE AMEZQUITA DO 03/30/23 0432: Supervisory-Addendum Brief Verification & Attestation Participated in pt care: history, MDM, physical Personally performed: exam, history, MDM, supervision of care Care discussed with: Medical Student Procedures: n/a Results interpretation: Verified all documentation Verification and Attestation of Medical Student E/M Service A medical student performed and documented this service in my presence. I reviewed and verified all information documented by the medical student and made modifications to such information, when appropriate. I personally performed the physical exam and medical decision making. Nadege Amezquita, Mar 30, 2023,04:32 DMITRY MAGANA Mar 29, 2023 11:46 NADEGE AMEZQUITA DO Mar 30, 2023 04:32
[2023-03-29 13:15] VITALS: BP 164/103
[2023-03-29 15:24] VITALS: BP 159/100
[2023-03-29] MEDS: PROPRANOLOL 60 MG TABLET PO SCH (19:53)
[2023-03-29] MEDS: CALCITRIOL 0.25 MCG CAPSULE PO SCH (19:53)
[2023-03-29] MEDS: ZONISAMIDE 100 MG CAP (ZONEGRAN) NON-FORMULARY PO SCH (19:54)
[2023-03-29 20:09] VITALS: BP 151/84
[2023-03-29 23:45] VITALS: BP 120/76
[2023-03-30 03:23] VITALS: BP 132/75
[2023-03-30 04:38] LABS: BASOPHILS # (AUTO) 0.1 10^3/uL (0.0-0.1); BASOPHILS % (AUTO) 1 % (0-10); EOSINOPHILS # (AUTO) 1.8 10^3/uL (0.0-0.3); EOSINOPHILS % (AUTO) 22 % (0-10); HEMATOCRIT 27 % (40-54); HEMOGLOBIN 9.3 g/dL (13.3-17.7); LYMPHOCYTES # (AUTO) 1.7 10^3/uL (1.0-4.0); LYMPHOCYTES % (AUTO) 21 % (12-44); MEAN CORPUSCULAR HEMOGLOBIN 29 pg (25-34); MEAN CORPUSCULAR HGB CONC 34 g/dL (32-36); MEAN CORPUSCULAR VOLUME 86 fL (80-99); MEAN PLATELET VOLUME 9.9 fL (9.0-12.2); MONOCYTES # (AUTO) 0.5 10^3/uL (0.0-1.0); MONOCYTES % (AUTO) 6 % (0-12); NEUTROPHILS # (AUTO) 3.9 10^3/uL (1.8-7.8); NEUTROPHILS % (AUTO) 49 % (42-75); PLATELET COUNT 258 10^3/uL (130-400)
[2023-03-30 04:50] LABS: ALBUMIN 3.1 GM/DL (3.2-4.5); POTASSIUM 3.5 MMOL/L (3.6-5.0)
[2023-03-30 04:51] LABS: CALCIUM 7.7 MG/DL (8.5-10.1)
[2023-03-30 04:53] LABS: TOTAL PROTEIN 4.7 GM/DL (6.4-8.2)
[2023-03-30 04:55] LABS: BILIRUBIN,TOTAL 0.2 MG/DL (0.1-1.0)
[2023-03-30 04:56] LABS: CREATININE SERUM 3.47 MG/DL (0.60-1.30)
[2023-03-30] MEDS: inSUlin ASPART (NovoLOG) 1 UNIT/0.01 ML (CHARGE PER UNIT) SC SCH ×2 (06:19→11:21)
[2023-03-30] MEDS: NS IV 1000 ML 1,000 ML IV SCH (07:28)
[2023-03-30] MEDS: DOCUSATE SODIUM 100 MG CAPSULE PO SCH (08:00)
[2023-03-30] MEDS: SENNOSIDES 8.6 MG (SENOKOT) TAB PO SCH (08:00)
[2023-03-30 08:11] VITALS: BP 138/76
[2023-03-30] MEDS: ASPIRIN 81 MG CHEWABLE TABLET PO SCH (08:26)
[2023-03-30] MEDS: predniSONE 5 MG TAB PO SCH (08:26)
[2023-03-30] MEDS: amLODIPine 5 MG TABLET PO SCH (08:26)
[2023-03-30] MEDS: SODIUM BICARBONATE 650 MG TABLET PO SCH ×2 (08:26→14:07)
[2023-03-30] MEDS: SERTRALINE 100 MG (ZOLOFT) TAB PO SCH (08:29)
[2023-03-30 12:00] VITALS: BP 130/70
[2023-03-30] MEDS ORDERED: AMLO-250 PO (12:07)
[2023-03-30] MEDS ORDERED: PROP60TA17 PO (12:07)
[2023-03-30] MEDS ORDERED: [UNRECOGNIZED DRUG - CODE] MC (12:07)
[2023-03-30] MEDS ORDERED: INSU100V16 SQ (12:07)
[2023-03-30] MEDS ORDERED: ZONI100C79 PO (12:07)
[2023-03-30] MEDS ORDERED: PRED5TAB PO (12:07)
[2023-03-30] MEDS ORDERED: NF-SODBICA PO (12:07)
[2023-03-30] MEDS ORDERED: SERT-414 PO (12:07)
--- NOTE | 2023-03-30 12:07 | Discharge Summary ---
Discharge Summary Hospital Course Was the Problem List Reviewed?: Yes Problems/Dx: (1) DKA, type 1 Status: Acute Qualifiers: Qualified Codes: E10.10 - Type 1 diabetes mellitus with ketoacidosis without coma (2) Acute on chronic renal failure Status: Acute Qualifiers: Qualified Codes: N17.9 - Acute kidney failure, unspecified; N18.9 - Chronic kidney disease, unspecified Hospital Course Date of Admission: Mar 28, 2023 at 10:02 Admission Diagnosis : Family Physician/Provider: Shital Jefferson MD Date of Discharge: 03/30/23 Discharge Diagnosis: [ ] Hospital Course: Patient had an uneventful hospital course after he was admitted for DKA. Insulin drip maintained and resolved the ketoacidosis. Patient does have a history of brittle diabetes. All medications were sent in for refills and he will have close follow-up with [facility]. Labs and Pending Lab Test: Laboratory Tests 03/29/23 15:23: Glucometer 118H 03/29/23 20:11: Glucometer 269H 03/29/23 22:46: Glucometer 20*L 03/29/23 22:56: Glucometer 61L 03/29/23 23:47: Glucometer 107 03/30/23 02:42: Glucometer 212H 03/30/23 04:30: White Blood Count 8.0, Red Blood Count 3.16L, Hemoglobin 9.3L, Hematocrit 27L, Mean Corpuscular Volume 86, Mean Corpuscular Hemoglobin 29, Mean Corpuscular Hemoglobin Concent 34, Red Cell Distribution Width 13.0, Platelet Count 258, Mean Platelet Volume 9.9, Immature Granulocyte % (Auto) 0, Neutrophils (%) (Auto) 49, Lymphocytes (%) (Auto) 21, Monocytes (%) (Auto) 6, Eosinophils (%) (Auto) 22H, Basophils (%) (Auto) 1, Neutrophils # (Auto) 3.9, Lymphocytes # (Auto) 1.7, Monocytes # (Auto) 0.5, Eosinophils # (Auto) 1.8H, Basophils # (Auto ) 0.1, Immature Granulocyte # (Auto) 0.0, Sodium Level 137, Potassium Level 3.5L , Chloride Level 111H, Carbon Dioxide Level 19L, Anion Gap 7, Blood Urea Nitrogen 27H, Creatinine 3.47#H, Estimat Glomerular Filtration Rate 23, BUN/Creatinine Ratio 8, Glucose Level 277H, Calcium Level 7.7L, Corrected Calcium 8.4L, Magnesium Level 2.0, Total Bilirubin 0.2, Aspartate Amino Transf (AST/SGOT) 15, Alanine Aminotransferase (ALT/SGPT) 10, Alkaline Phosphatase 68, Total Protein 4.7L, Albumin 3.1L 03/30/23 05:31: Glucometer 243H 03/30/23 11:16: Glucometer 66L 03/30/23 12:01: Glucometer 109 Microbiology 03/28/23 MRSA Screen - Final, Complete MRSA not isolated Home Meds Active Reported Lisinopril 5 Mg Tablet 5 Mg PO DAILY LAST FILLED 08-13-2022 #30/ DAY SUPPLY Prednisone 5 Mg Tablet 5 Mg PO DAILY LAST FILLED 12-04-2022 #90/ DAY SUPPLY Amlodipine Besylate 5 Mg Tablet 5 Mg PO DAILY LAST FILLED 10-31-2022 #90/ DAY SUPPLY Sodium Bicarbonate 650 Mg Tablet 1,300 Mg PO TID TAKES 2 (650MG) TABS LAST FILLED 10-31-2022 #180/30DS Sertraline HCl 100 Mg Tablet 150 Mg PO DAILY TAKES 1 & (100MG) TABS Calcitriol 0.25 Mcg Capsule 0.25 Mg PO HS Novolog (Insulin Aspart) 100 Unit/Ml Susp Units PER PUMP Propranolol HCl 60 Mg Tablet 60 Mg PO HS Zonisamide 100 Mg Capsule 400 Mg PO HS TAKES 4 (100MG) CAPS Assessment/Pt Instructions PCP in 1 week Discharge Planning: <30 minutes discharge planning Discharge Instructions Discharge Diet: ADA Diet Discharge Physical Examination Vital Signs Vital Signs Date Time Temp Pulse Resp B/P (MAP) Pulse Ox O2 Delivery O2 Flow Rate FiO2 03/30/23 09:00 100 Room Air 03/30/23 08:11 36.7 88 20 138/76 (96) General Appearance: No Apparent Distress, WD/WN, Chronically ill Allergies: Coded Allergies: Penicillins (Verified Allergy, Unknown, 03/03/20) levetiracetam (Verified Allergy, Unknown, 11/14/17) promethazine (Verified Allergy, Unknown, 03/03/20) Discharge Summary Date of Admission Mar 28, 2023 at 10:02 Date of Discharge Discharge Date: Mar 30, 2023 Admission Diagnosis Diabetic Ketoacidosis KAITLYNN AMEZQUITA DO Mar 30, 2023 12:07
[2023-03-30] MEDS ORDERED: [UNRECOGNIZED DRUG - CODE] MC (15:04)
== END 2023-03-30 15:20 | disposition home or self-care (01) | DRG 638 ==
LOC: EDUNIT# 05:48 → ER 05:50 → ICU 10:02 → 4TH 03-29 13:10
PROVIDERS: ADMIT Internal Medicine; ATTEND Internal Medicine
DX: E10.10 Type 1 diabetes mellitus with ketoacidosis without coma (principal); N17.9 Acute kidney failure, unspecified; N18.4 Chronic kidney disease, stage 4 (severe); Z79.4 Long term (current) use of insulin; Z79.899 Other long term (current) drug therapy; G40.909 Epilepsy, unspecified, not intractable, without status epilepticus; G43.909 Migraine, unspecified, not intractable, without status migrainosus; E10.22 Type 1 diabetes mellitus with diabetic chronic kidney disease; I12.9 Hypertensive chronic kidney disease with stage 1 through stage 4 chronic kidney disease, or unspecified chronic kidney disease; F32.9 Major depressive disorder, single episode, unspecified; Z87.891 Personal history of nicotine dependence; E87.6 Hypokalemia; D63.1 Anemia in chronic kidney disease
CPT/HCPCS: 36415; 71045; 80048; 80053; 81000; 82010; 82805; 82947; 83036; 83690; 83735; 84100; 84484; 85007; 85025; 85027; 87081; 93005; 94760

== ENCOUNTER 2023-08-02 15:47 | Inpatient (IN) | payer MEDICARE, MEDICAID ==
[~2023-08-02] VITALS: Ht 154.9 cm; Wt 53.1 kg
[~2023-08-02 15:47] MED LIST changes: +AMLO-250 PO; +CALC0.253 PO; +INSU100V16; +INSU100V16 SQ; +LISI5TAB20 PO; +NF-SODBICA PO; +PRED5TAB PO; +PROP60TA17 PO; +SERT-414 PO; +ZONI100C79 PO; +[UNRECOGNIZED DRUG - CODE] MC; +[UNRECOGNIZED DRUG - CODE] MC
--- NOTE | 2023-08-02 15:57 | ED General ---
General Chief Complaint: Glucose Problems Stated Complaint: HIGH BLOOD SUGAR Nursing Triage Note: PT ARRIVED PER EMS. PT CO OF VOMITING, LOW BACK PAIN, ELEVATED BS 301. PT HAS PORT IN L CHEST WALL. ACCESSED BY EMS NS INFUSING IN L CHEST WALL. PT IS IDDM. Source of Information: Patient Exam Limitations: No Limitations History of Present Illness Date Seen by Provider: Aug 02, 2023 Time Seen by Provider: 15:49 Initial Comments This 32-year-old gentleman with type 1 diabetes and chronic kidney disease presents to the emergency room via EMS with vomiting and hyperglycemia. His blood sugar was 301 for EMS. He reports his Dexcom device is broken and which has made his diabetes hard to manage. He believes his pump is still working properly. He believes it is currently running at 1.3 units/h. He gave himself a 3 unit bolus upon arrival to the emergency room. He reports being out of his prednisone 5 mg daily dose for about 1 week. He claims that he could not get anyone to refill it for him. He has underlying chronic kidney disease which she reports as nephrotic syndrome. I later spoke with Dr. Diana Ramirez who is his trial management associate. She believes he has IgA nephropathy. His reported baseline creatinine from the summer was 5.45 with a GFR of 14. He denies any recent illness. He denies any cough, shortness of breath, diarrhea, or fevers. He had some chills earlier which have resolved. His primary care provider is Dr. Tyler. EMS started IV hydration with normal saline and administered Zofran 4 mg in route. Allergies and Home Medications Allergies Coded Allergies: Penicillins (Verified Allergy, Unknown, 03/03/20) levetiracetam (Verified Allergy, Unknown, 11/14/17) promethazine (Verified Allergy, Unknown, 03/03/20) Patient Home Medication List Home Medication List Reviewed: Yes Amlodipine Besylate (Amlodipine Besylate) 5 Mg Tablet, 5 MG PO DAILY, (Reported) Entered as Reported by: CORNELIUS EVANS on 08/03/23 1055 Last Action: Continued Calcitriol (Calcitriol) 0.25 Mcg Capsule, 0.25 MG PO HS, (Reported) Entered as Reported by: CORNELIUS EVANS on 03/28/23 1215 Last Action: Continued Cholecalciferol (Vitamin D3) (Vitamin D3) 50 Mcg (2000 Unit) Capsule, 50 MCG PO DAILY, (Reported) Entered as Reported by: CORNELIUS EVANS on 08/03/231054 Last Action: Held Insulin Aspart (Novolog) 100 Unit/Ml Susp, 0 SQ PER PUMP Prescribed by: KAITLYNN AMEZQUITA on 03/30/23 1207 Last Action: Held Krill/Om3/Dha/Epa/Om6/Lip/Astx (Krill Oil 1,000 mg Softgel) 1,000-130MG Capsule, 1 EACH PO DAILY, (Reported) Entered as Reported by: CORNELIUS EVANS on 08/03/231054 Last Action: Held Prednisone (Prednisone) 5 Mg Tablet, 5 MG PO HS Prescribed by: Alejandro Pavon on 08/04/23 1010 Propranolol HCl (Propranolol HCl ER) 60 Mg Cap.sa.24h, 60 MG PO HS, (Reported) Entered as Reported by: CORNELIUS EVANS on 08/03/231054 Last Action: Continued Sertraline HCl (Sertraline HCl) 100 Mg Tablet, 150 MG PO DAILY, (Reported) Entered as Reported by: CORNELIUS EVANS on 08/03/231054 Last Action: Continued Sodium Bicarbonate (Sodium Bicarbonate) 650 Mg Tablet, 1,300 MG PO BID, (Reported) Entered as Reported by: CORNELIUS EVANS on 08/03/231054 Last Action: Continued Vitamin E Mixed (Vitamin E) 400 Unit Tablet, 400 UNIT PO DAILY, (Reported) Entered as Reported by: CORNELIUS EVANS on 08/03/231054 Last Action: Held Zonisamide (Zonisamide) 100 Mg Capsule, 400 MG PO HS, (Reported) Entered as Reported by: CORNELIUS EVANS on 08/03/231054 Last Action: Continued Discontinued Medications Amlodipine Besylate (Amlodipine Besylate) 5 Mg Tablet, 5 MG PO DAILY Discontinued Reason: Duplicate Order Prescribed by: KAITLYNN AMEZQUITA on 03/30/23 120 Last Action: Discontinued Blood-Glucose Sensor (dbTwangcom G7 Sensor) 1 Each Each, EACH MC DAILY, (DME) Discontinued Reason: No Longer Taking Prescribed by: KAITLYNN AMEZQUITA on 03/30/23 5244 Last Action: Discontinued Prednisone (Prednisone) 5 Mg Tablet, 5 MG PO DAILY Discontinued Reason: Duplicate Order Prescribed by: KAITLYNN AMEZQUITA on 03/30/231206 Last Action: Discontinued Propranolol HCl (Propranolol HCl) 60 Mg Tablet, 60 MG PO HS Discontinued Reason: No Longer Taking Prescribed by: KAITLYNN AMEZQUITA on 03/30/231206 Last Action: Discontinued Sertraline HCl (Sertraline HCl) 100 Mg Tablet, 150 MG PO DAILY Discontinued Reason: No Longer Taking Prescribed by: KAITLYNN AMEZQUITA on 03/30/231206 Last Action: Discontinued Sodium Bicarbonate (Sodium Bicarbonate) 650 Mg Tablet, 1,300 MG PO TID Discontinued Reason: No Longer Taking Prescribed by: KAITLYNN AMEZQUITA on 03/30/231206 Last Action: Discontinued Syring W-Ndl,Disp,Insul,0.5 ml (Advocate Syringes) 31 Gauge X 5/16" Disp.syrin, EACH ACHS, (DME) Discontinued Reason: No Longer Taking Prescribed by: KAITLYNN AMEZQUITA on 03/30/231206 Last Action: Discontinued Zonisamide (Zonisamide) 100 Mg Capsule, 400 MG PO HS Discontinued Reason: No Longer Taking Prescribed by: KAITLYNN AMEZQUITA on 03/30/231206 Last Action: Discontinued Review of Systems Review of Systems Constitutional: see HPI EENTM: no symptoms reported Respiratory: no symptoms reported Cardiovascular: no symptoms reported Gastrointestinal: see HPI Genitourinary: see HPI Musculoskeletal: no symptoms reported Skin: no symptoms reported Psychiatric/Neurological: Other (Mildly confused) Hematologic/Lymphatic: No Symptoms Reported Immunological/Allergic: no symptoms reported Past Brgprkv-Vsmorn-Kkiybp Hx Patient Social History Tobacco Use?: No Substance use?: Yes Substance type: Marijuana Substance frequency: Couple times a week Alcohol Use?: Yes Alcohol Frequency: Rarely Pt feels they are or have been: No Immunizations Up To Date PED Vaccines UTD: Yes First/Initial COVID19 Vaccinat: ONLY 1 VACCINE Second COVID19 Vaccination Dc: ONLY 1 VACCINE Third COVID19 Vaccination Date: ONLY 1 VACCINE Past Medical History Surgery/Hospitalization HX: EPILEPSY, NEPHROTIC SYN, IDDM Surgeries: Yes (5 groshong placements; kidney bx's.) Respiratory: Yes Pneumonia Cardiac: Yes Hypertension Neurological: Yes Headaches /Migraines, Seizure Disorder Reproductive Disorders: No Sexually Transmitted Disease: No Genitourinary: Yes Renal Failure (Nephrotic syndrome) Gastrointestinal: Yes Musculoskeletal: No Endocrine: Yes Diabetes, Insulin dep HEENT: No Cancer: No Psychosocial: Yes Suicide Attempts Integumentary: No Blood Disorders: No Family Medical History No Pertinent Family Hx Physical Exam Vital Signs Vital Signs - First Documented 08/02/23 08/02/23 15:49 18:45 Pulse 93 Resp 18 B/P (MAP) 135/82 (99) Pulse Ox 99 O2 Delivery Room Air Capillary Refill : Less Than 3 Seconds Height, Weight, BMI Height: 5'1.00" Weight: 132lbs. oz. [id number]; 19.66 BMI Method:Stated General Appearance: WD/WN, Mild Distress HEENT: PERRL/EOMI, Normal ENT Inspection, Other (Oropharynx very dry) Neck: Normal Inspection Respiratory: Lungs Clear, Normal Breath Sounds, No Accessory Muscle Use Cardiovascular: Regular Rate, Rhythm, No Edema, No Murmur Gastrointestinal: Normal Bowel Sounds, Non Tender, Soft; No Distended Extremity: Normal Inspection, No Pedal Edema Neurologic/Psychiatric: Alert, No Motor/Sensory Deficits, Normal Mood/Affect, Other (Mildly confused) Skin: Normal Color, Warm/Dry Progress/Results/Core Measures Suspected Sepsis SIRS Temperature: Pulse: 93 Respiratory Rate: 18 Laboratory Tests 08/02/23 15:53: White Blood Count 22.0H Blood Pressure 135 /82 Mean: 99 Laboratory Tests 08/02/23 15:53: Platelet Count 369, Total Bilirubin 0.2 Results/Orders Lab Results Laboratory Tests Test 08/02/23 15:53 08/02/23 15:57 08/02/23 15:59 08/02/23 16:45 Range/Units White Blood Count 22.0 H 4.3-11.0 10^3/uL Red Blood Count 3.84 L 4.30-5.52 10^6/uL Hemoglobin 11.2 L 13.3-17.7 g/dL Hematocrit 35 L 40-54 % Mean Corpuscular Volume 90 80-99 fL Mean Corpuscular Hemoglobin 29 25-34 pg Mean Corpuscular Hemoglobin Concent 32 32-36 g/dL Red Cell Distribution Width 17.4 H 10.0-14.5 % Platelet Count 369 130-400 10^3/uL Mean Platelet Volume 9.5 9.0-12.2 fL Immature Granulocyte % (Auto) 1 % Neutrophils (%) (Auto) 51 42-75 % Lymphocytes (%) (Auto) 15 12-44 % Monocytes (%) (Auto) 5 0-12 % Eosinophils (%) (Auto) 29 H 0-10 % Basophils (%) (Auto) 1 0-10 % Neutrophils # (Auto) 11.1 H 1.8-7.8 X 10^3 Lymphocytes # (Auto) 3.2 1.0-4.0 X 10^3 Monocytes # (Auto) 1.1 H 0.0-1.0 X 10^3 Eosinophils # (Auto) 6.3 H 0.0-0.3 10^3/uL Basophils # (Auto) 0.1 0.0-0.1 10^3/uL Immature Granulocyte # (Auto) 0.1 0.0-0.1 10^3/uL Neutrophils % (Manual) 53 % Lymphocytes % (Manual) 15 % Monocytes % (Manual) 1 % Eosinophils % (Manual) 31 % Poikilocytosis SLIGHT Anisocytosis SLIGHT Sodium Level 138 135-145 MMOL/L Potassium Level 5.1 H 3.6-5.0 MMOL/L Chloride Level 107 98-107 MMOL/L Carbon Dioxide Level 6 *L 21-32 MMOL/L Anion Gap 25 H 5-14 MMOL/L Blood Urea Nitrogen 45 H 7-18 MG/DL Creatinine 5.98 H 0.60-1.30 MG/DL Estimat Glomerular Filtration Rate 12 BUN/Creatinine Ratio 8 Glucose Level 358 H 70-105 MG/DL Calcium Level 8.6 8.5-10.1 MG/DL Corrected Calcium 8.8 8.5-10.1 MG/DL Magnesium Level 1.9 1.6-2.4 MG/DL Total Bilirubin 0.2 0.1-1.0 MG/DL Aspartate Amino Transf (AST/SGOT) 12 5-34 U/L Alanine Aminotransferase (ALT/SGPT) 12 0-55 U/L Alkaline Phosphatase 84 40-136 U/L Total Protein 6.5 6.4-8.2 GM/DL Albumin 3.8 3.2-4.5 GM/DL Lipase 49 8-78 U/L Beta-Hydroxybutyrate (Chem panel) 10.92 H 0.00-0.27 MMOL/L Serum Alcohol < 10 <10 MG/DL Glucometer 119 H 281 H 300 H 70-110 MG/DL Test 08/02/23 16:55 08/02/23 18:17 08/02/23 18:44 Range/Units Urine Color YELLOW Urine Clarity CLEAR Urine pH 5.0 5-9 Urine Specific Abernathy 1.025 H 1.016-1.022 Urine Protein 3+ H NEGATIVE Urine Glucose (UA) 2+ H NEGATIVE Urine Ketones 4+ H NEGATIVE Urine Nitrite NEGATIVE NEGATIVE Urine Bilirubin 1+ H NEGATIVE Urine Urobilinogen 0.2 < = 1.0 MG/DL Urine Leukocyte Esterase NEGATIVE NEGATIVE Urine RBC (Auto) TRACE H NEGATIVE Urine RBC NONE /HPF Urine WBC RARE /HPF Urine Squamous Epithelial Cells NONE /HPF Urine Crystals PRESENT H /LPF Urine Amorphous Sediment RARE MALI URATES H /LPF Urine Bacteria TRACE /HPF Urine Casts NONE /LPF Urine Mucus NEGATIVE /LPF Urine Culture Indicated NO Urine Opiates Screen NEGATIVE NEGATIVE Urine Oxycodone Screen NEGATIVE NEGATIVE Urine Methadone Screen NEGATIVE NEGATIVE Urine Barbiturates Screen NEGATIVE NEGATIVE Ur Tricyclic Antidepressants Screen NEGATIVE NEGATIVE Urine Phencyclidine Screen NEGATIVE NEGATIVE Urine Amphetamines Screen NEGATIVE NEGATIVE Urine Methamphetamines Screen NEGATIVE NEGATIVE Urine Benzodiazepines Screen NEGATIVE NEGATIVE Urine Cocaine Screen NEGATIVE NEGATIVE Urine Cannabinoids Screen NEGATIVE NEGATIVE Glucometer 142 H 141 H 70-110 MG/DL My Orders Orders - SIMONE PRATER MD Alcohol (08/02/23 15:55) Cbc And Automated Diff (08/02/23 15:55) Comprehensive Metabolic Panel (08/02/23 15:55) Lipase (08/02/23 15:55) Magnesium (08/02/23 15:55) Ua Culture If Indicated (08/02/23 15:55) Drug Screen Stat (Urine) (08/02/23 15:55) Ondansetron Injection (Ondansetron Inj (08/02/23 16:00) Manual Differential (08/02/23 15:53) Ns Iv 1000 Ml (Ns Iv 1000 Ml) (08/02/23 16:30) Insulin (Regular) Per Unit (Insulin (Reg (08/02/23 16:30) Prednisone Tablet (Prednisone Tablet) (08/02/23 18:00) Water (Sterile) For Injection (Sterile W (08/02/23 18:00) Beta Hydroxybutyrate (08/02/23 18:12) Water For Injection... W/Sodium Bicarbon (08/02/23 18:30) Fentanyl Injection (Fentanyl Injection (08/02/23 18:30) D5 1/2 Ns 1,000 Ml Iv (Dextrose 5%/0.45% (08/02/23 18:20) Ed Admission (Communication) (08/02/23 18:24) Medications Given in ED Vital Signs/I&O 08/02/23 08/02/23 08/02/23 15:49 18:43 18:45 Pulse 93 90 89 Resp 18 18 22 B/P (MAP) 135/82 (99) 164/93 (116) Pulse Ox 99 99 98 O2 Delivery Room Air Capillary Refill : Less Than 3 Seconds Blood Pressure Mean: 99 Progress Note : Time: 18:36 Progress Note Peña was interviewed and examined upon arrival. Report was received from EMS. I have discussed his case with Dr. Diana Ramirez, his trial management associate. She is comfortable with him staying at this facility given his baseline creatinine is 5.45 with a GFR of 14 and he has been at stage V renal failure for a long time. She recommended restarting his prednisone at 5 mg daily. An IV bolus dose was not necessary. His first dose was ordered in the ER. She also recommended treating him with sodium bicarb at 150 mEq in 1 L of water. This should be run at 75 mL/h in addition to fluids on the DKA protocol. If he develops swelling or shortness of breath, sodium bicarb should be changed to oral preparation. He has received 2 L of IV normal saline. He was given 5 units of insulin by IV route in addition to what he gave himself on the pump. His last blood sugar was 142. We are turning off his pump and starting D5 half- normal saline at 250 mL/h. His sodium bicarb drip will be started in the ICU. He received an additional Zofran 4 mg dose for residual nausea. Labs were reviewed and interpreted by me. CBC was notable for leukocytosis of 22,000. He had mild anemia with hemoglobin of 11.2. Chemistry was notable for potassium slightly elevated at 5.1. BUN was 45 and creatinine was 5.98. Glucose was 358. He had 4+ ketones in his urinalysis. Case was discussed with Dr. Amezquita hospitalist who excepted admission. I further discussed the case with Dr. Pavon, resident working with Dr. Amezquita. She is presenting to the emergency room to see the patient. Patient has been producing plenty of urine in the emergency room. Departure Communication (Admissions) Time/Spoke to Admitting Phy: 18:06 Dr[address] Pavon Impression Primary Impression: DKA, type 1 Qualified Codes: E10.10 - Type 1 diabetes mellitus with ketoacidosis without coma Additional Impressions: Chronic kidney disease Qualified Codes: N18.5 - Chronic kidney disease, stage 5 Nephrotic syndrome Nausea and vomiting Qualified Codes: R11.2 - Nausea with vomiting, unspecified Disposition: ADMITTED INPATIENT Condition: Improved Admissions Decision to Admit Reason: Admit from ER (General) Decision to Admit/Date: Aug 02, 2023 Time/Decision to Admit Time: 18:06 Departure-Patient Inst. Referrals: JORGE L TYLER MD (PCP/Family) Primary Care Physician Scripts Prednisone (Prednisone) 5 Mg Tablet 5 MG PO HS for 30 Days, #30 TAB LAST FILLED 04-09-2023 #90/90 DAY SUPPLY- PATIENT OUT OF MEDICATION Prov: ALEJANDRO PAVON MD, RESIDENT 08/04/23 Copy Copies To 1: JORGE L TYLER MD Copies To 2: DIANA RAMIREZ MD, JOSHUA T MD Aug 02, 2023 15:57
[2023-08-02] MEDS ORDERED: ONDANSETRON INJECTION 4 MG/2 ML (SDV) IVP ONE (16:00)
[2023-08-02 16:13] LABS: BASOPHILS # (AUTO) 0.1 10^3/uL (0.0-0.1); BASOPHILS % (AUTO) 1 % (0-10); EOSINOPHILS # (AUTO) 6.3 10^3/uL (0.0-0.3); EOSINOPHILS % (AUTO) 29 % (0-10); HEMATOCRIT 35 % (40-54); HEMOGLOBIN 11.2 g/dL (13.3-17.7); LYMPHOCYTES # (AUTO) 3.2 X 10^3 (1.0-4.0); LYMPHOCYTES % (AUTO) 15 % (12-44); MEAN CORPUSCULAR HEMOGLOBIN 29 pg (25-34); MEAN CORPUSCULAR HGB CONC 32 g/dL (32-36); MEAN CORPUSCULAR VOLUME 90 fL (80-99); MEAN PLATELET VOLUME 9.5 fL (9.0-12.2); MONOCYTES # (AUTO) 1.1 X 10^3 (0.0-1.0); MONOCYTES % (AUTO) 5 % (0-12); NEUTROPHILS # (AUTO) 11.1 X 10^3 (1.8-7.8); NEUTROPHILS % (AUTO) 51 % (42-75); PLATELET COUNT 369 10^3/uL (130-400)
[2023-08-02 16:14] LABS: ALBUMIN 3.8 GM/DL (3.2-4.5); CHLORIDE 107 MMOL/L (98-107); POTASSIUM 5.1 MMOL/L (3.6-5.0); SODIUM 138 MMOL/L (135-145)
[2023-08-02 16:15] LABS: CALCIUM 8.6 MG/DL (8.5-10.1)
[2023-08-02 16:17] LABS: GLUCOSE 358 MG/DL (70-105); TOTAL PROTEIN 6.5 GM/DL (6.4-8.2)
[2023-08-02 16:19] LABS: BILIRUBIN,TOTAL 0.2 MG/DL (0.1-1.0)
[2023-08-02 16:20] LABS: ALKALINE PHOSPHATASE 84 U/L (40-136)
[2023-08-02 16:21] LABS: CREATININE SERUM 5.98 MG/DL (0.60-1.30); GFR ESTIMATED 12
[2023-08-02 16:22] LABS: BUN/CREATININE RATIO 8
[2023-08-02 16:23] LABS: ALANINE AMINOTRANSFERASE 12 U/L (0-55); MAGNESIUM 1.9 MG/DL (1.6-2.4)
[2023-08-02 16:25] LABS: LIPASE 49 U/L (8-78)
[2023-08-02 16:28] LABS: CARBON DIOXIDE 6 MMOL/L (21-32)
[2023-08-02] MEDS ORDERED: NS IV 1000 ML 1,000 ML IV SCH ×2 (16:30→19:30)
[2023-08-02] MEDS ORDERED: inSUlin (REGULAR) HUMAN 1 UNIT/0.01 ML (CHARGE PER UNIT) IV STA (16:30)
[2023-08-02 16:38] LABS: EOSINOPHILS % (MANUAL) 31 %; LYMPHOCYTES % (MANUAL) 15 %; MONOCYTES % (MANUAL) 1 %; NEUTROPHILS % (MANUAL) 53 %
[2023-08-02 16:39] LABS: ANISOCYTOSIS SLIGHT; POIKILOCYTOSIS SLIGHT
[2023-08-02 17:10] LABS: AMORPHOUS SEDIMENT,UR RARE AMOR URATES /LPF; BACTERIA,URINE TRACE /HPF; BILIRUBIN,URINE 1+ (NEGATIVE); CLARITY,URINE CLEAR; COLOR,URINE YELLOW; GLUCOSE, URINE (UA) 2+ (NEGATIVE); KETONES,URINE 4+ (NEGATIVE); LEUKOCYTE ESTERASE ,URINE NEGATIVE (NEGATIVE); NITRITE,URINE NEGATIVE (NEGATIVE); PROTEIN,URINE 3+ (NEGATIVE); WBC,URINE RARE /HPF
[2023-08-02 17:12] LABS: AMPHETAMINE SCREEN, URINE NEGATIVE (NEGATIVE); BARBITURATE SCREEN URINE NEGATIVE (NEGATIVE); CANNABINOID SCREEN, URINE NEGATIVE (NEGATIVE); COCAINE SCREEN URINE NEGATIVE (NEGATIVE); METHADONE STAT NEGATIVE (NEGATIVE); OPIATE SCREEN URINE NEGATIVE (NEGATIVE); OXYCODONE STAT NEGATIVE (NEGATIVE); TRICYCLIC ANTIDEPRESSANTS SCRE NEGATIVE (NEGATIVE)
[2023-08-02] MEDS ORDERED: predniSONE 5 MG TABLET PO ONE (18:00)
[2023-08-02] MEDS ORDERED: WATER (STERILE) FOR INJ 10 ML BTL IV SCH (18:00)
[2023-08-02] MEDS ORDERED: D5 1/2 NS 1,000 ML IV 1,000 ML IV ONE (18:20)
[2023-08-02] MEDS ORDERED: SODIUM BICARBONATE IV SCH ×2 (18:30)
[2023-08-02] MEDS ORDERED: STERILE IV SCH ×2 (18:30)
[2023-08-02] MEDS ORDERED: fentaNYL INJECTION 100 MCG/2 ML VIAL IVP ONE (18:30)
--- NOTE | 2023-08-02 19:02 | History & Physical-Hospitalist ---
ALEJANDRO FERRER MD, RESIDENT 08/02/23 1902: History of Present Illness HPI/Chief Complaint CC: Vomiting Patient is a 32-year-old male with a past medical history of type 1 diabetes, nephrotic syndrome, epilepsy, gastroparesis who presented to the emergency room via EMS with vomiting and hyperglycemia. He states he was in his usual state of health until around 9 AM this morning when he noticed that he started to vomit up food immediately after eating it. He states that his Dexcom is broken and has made his diabetes difficult to manage at this time. He states the vomiting was persistent to the point where he could not tolerate any oral intake and thus called EMS to bring him into the hospital. He was also noting some epigastric burning, back and rib pain, as well as some midsternal chest pain that started around the time when his vomiting started and attributes it to the vomiting. He denies any diarrhea, dysuria, shortness of breath, cough, dysuria. He states he has been noticing a runny nose but notes that this started with the vomiting as well. He follows with Dr. Diana Ramirez who is his grain elevator man, states he was seeing an technicians and trades workers in [place] but does not remember the name. Source: patient Exam Limitations: no limitations Date Seen 08/02/23 Time Seen by a Provider: 19:00 Attending Physician Shital Jefferson MD PCP Admitting Physician: Nadege Amezquita DO Attending Physician: Nadege Amezquita DO Referring Physician Date of Admission Aug 02, 2023 at 18:50 Home Medications & Allergies Home Medications Reviewed patient Home Medication Reconciliation performed by pharmacy medication reconciliations electrocardiographic technician and/or nursing. Patients Allergies have been reviewed. Allergies Allergies Coded Allergies Penicillins (Verified Allergy, Unknown, 03/03/20) levetiracetam (Verified Allergy, Unknown, 11/14/17) promethazine (Verified Allergy, Unknown, 03/03/20) Past Hygksyk-Hpboub-Mdkyxf Hx Patient Social History Tobacco Use?: No Smoking Status: Current Someday Smoker (1 cigar every 10 days) E-Cig or Vaping type used: Marijuana (1-2 times per week) Substance use?: Yes Substance type: Marijuana Substance frequency: Couple times a week Alcohol Use?: Yes Alcohol Frequency: Rarely Pt feels they are or have been: No Immunizations Up To Date First/Initial COVID19 Vaccinat: ONLY 1 VACCINE Second COVID19 Vaccination Dc: ONLY 1 VACCINE PED Vaccines UTD: Yes Current Status Advance Directives: No Communicates: Verbally Primary Language: Central African Preferred Spoken Language: [place] African Is interpretation needed?: No Implanted or Applied Medical D: Port-a-cath Past Medical History Pneumonia Hypertension Headaches /Migraines, Seizure Disorder Sexually Transmitted Disease: No Renal Failure (Nephrotic syndrome) Diabetes, Insulin dep Suicide Attempts Blood Disorders: No kidney biopsies Ports d/t venous insufficiency Family Medical History No Pertinent Family Hx Review of Systems Constitutional: No chills, No fever EENTM: nose congestion Respiratory: No cough, No short of breath Cardiovascular: chest pain; No edema, No palpitations Gastrointestinal: abdominal pain; No constipation, No diarrhea; nausea, vomiti ng Genitourinary: decreased output; No dysuria Psychiatric/Neurological: Denies Anxiety, Denies Headache Physical Exam Physical Exam Vital Signs Vital Signs - First Documented 08/02/23 15:49 Pulse 93 Resp 18 B/P (MAP) 135/82 (99) Pulse Ox 99 Capillary Refill : Less Than 3 Seconds Height, Weight, BMI Height: 5'1.00" Weight: 132lbs. oz. 59.260663bd; 19.66 BMI Method:Stated General Appearance: No Apparent Distress HEENT: Normal ENT Inspection Neck: Full Range of Motion, Normal Inspection Respiratory: Chest Non Tender, Lungs Clear, Normal Breath Sounds, No Accessory Muscle Use, No Respiratory Distress, Other (Port in the left side of chest) Cardiovascular: Regular Rate, Rhythm, No Edema, No Murmur Gastrointestinal: Normal Bowel Sounds, Non Tender, Soft Back: Other (Some left flank tenderness but no CVA tenderness) Extremity: No Pedal Edema Neurologic/Psychiatric: Alert, Oriented x3 Skin: Normal Color, Warm/Dry Results Results/Procedures Labs Laboratory Tests 08/02/23 15:53 Patient resulted labs reviewed. Assessment/Plan Admission Diagnosis 32-year-old male with past medical history of type 1 diabetes, epilepsy, ne phrotic syndrome, gastroparesis presenting with DKA. Admission Status: Observation Diagnosis/Problems Diagnosis/Problems (1) DKA, type 1 Status: Acute Assessment & Plan: History of type 1 diabetes. Patient presents in DKA, has an insulin pump in place. Noted to have high anion gap metabolic acidosis, 4+ ketones in his urine, beta hydroxybutyrate 10.92. Plan: DKA protocol Continue insulin drip until able to tolerate oral intake and DKA has resolved We will run sodium bicarb at a rate of 150meq/1 L of saline at 75 mL/h per grain elevator man recommendation Labs every 4 hours per nephrology recommendations Daily beta hydroxybutyrate Qualifiers: Diabetes mellitus complication detail: without coma Qualified Codes: E10 .10 - Type 1 diabetes mellitus with ketoacidosis without coma (2) Nausea and vomiting Status: Acute Assessment & Plan: Secondary to DKA. Continue antiemetics. Qualifiers: Vomiting type: unspecified Qualified Codes: R11.2 - Nausea with vomiting, unspecified (3) Nephrotic syndrome Status: Chronic Assessment & Plan: Patient has a history of nephrotic syndrome, follows with Dr. Diana Ramirez. Thought to be secondary to IgA nephropathy. Has been chronic kidney disease as baseline with a baseline creatinine of 5.45, GFR 14. Plan: Continue IV fluid hydration Continue prednisone 5 mg daily Sodium bicarb as per above Okay to contact patient's grain elevator man as needed (4) Acute on chronic renal failure Status: Acute Assessment & Plan: See above. Likely secondary to dehydration from vomiting. Replete with fluids. (5) Hypertension Status: Chronic Assessment & Plan: Patient is on amlodipine 5 mg daily and propranolol 60 mg daily. Blood pressures within normal range. We will restart home medications. (6) Epilepsy Status: Chronic Assessment & Plan: Patient on zonisamide 400 mg nightly. We will continue home medications. Qualifiers: Epilepsy type: unspecified AMEZQUITANADEGE DUARTE 08/03/23 0415: History of Present Illness HPI/Chief Complaint Chief complaint: DKA HPI: This is a 32-year-old male history of type 1 diabetes and Stage V CKD managed by Dr Ortiz who presented to the Er with DKA and TC. Patient has remained stable and will be on insulin drip. Source: patient Exam Limitations: no limitations Past Rfbogdl-Jxvsaj-Lpfucz Hx Patient Social History Employed/Student: unemployed Smoking Status: Current Someday Smoker (1 cigar every 10 days) Review of Systems Constitutional: see HPI Gastrointestinal: nausea, vomiting Physical Exam Physical Exam General Appearance: No Apparent Distress Respiratory: Lungs Clear, Normal Breath Sounds Assessment/Plan Admission Diagnosis DKA CKD Plan: Insulin Bicarb drip Admission Status: Observation ALEJANDRO FERRER MD, RESIDENT Aug 02, 2023 19:02 NADEGE AMEZQUITA DO Aug 03, 2023 04:15
[2023-08-02] MEDS ORDERED: SODIUM BICARBONATE 8.4% VIAL 150 MEQ in WATER FOR INJECTION, STERILE 1,000 ML IV SCH (19:30)
[2023-08-02] MEDS ORDERED: ENOXAPARIN 40 MG/0.4 ML SYRINGE SC SCH (19:30)
[2023-08-02] MEDS ORDERED: MELATONIN 3 MG TABLET PO PRN (19:30)
[2023-08-02] MEDS ORDERED: PATIENT MAY USE OWN MED,SINGLE MED PO SCH (19:30)
[2023-08-02] MEDS ORDERED: CALCIUM CARBONATE 500 MG CHEW TABLET PO PRN (19:30)
[2023-08-02] MEDS ORDERED: NS IV 500 ML 500 ML IV PRN (19:30)
[2023-08-02] MEDS ORDERED: ACETAMINOPHEN 325 MG TABLET PO PRN (19:30)
[2023-08-02] MEDS ORDERED: diphenhydrAMINE INJ 50 MG/ML VIAL IVP PRN (19:30)
[2023-08-02] MEDS ORDERED: ONDANSETRON 4 MG ORAL DISSOLVE TABLET PO PRN (19:30)
[2023-08-02] MEDS ORDERED: BISACODYL 10 MG SUPPOSITORY PR PRN (19:30)
[2023-08-02] MEDS ORDERED: HYDROmorphone INJECTION 2 MG/ML VIAL IV PRN (19:30)
[2023-08-02] MEDS ORDERED: DexMEDEtomidine 1,000mcg/250ml 250 ML IV SCH (19:30)
[2023-08-02] MEDS ORDERED: LORazepam 0.5 MG TABLET PO PRN (19:30)
[2023-08-02] MEDS ORDERED: ONDANSETRON INJECTION 4 MG/2 ML (SDV) IV PRN (19:30)
[2023-08-02] MEDS ORDERED: MILK OF MAGNESIA 400 MG/5 ML 30 ML UDC PO PRN (19:30)
[2023-08-02] MEDS ORDERED: LACTULOSE SYRUP 10GM/15ML 30ML UDC PO PRN (19:30)
[2023-08-02] MEDS ORDERED: ANTACID SUSPENSION 30 ML UDC PO PRN (19:30)
[2023-08-02] MEDS ORDERED: POTASSIUM CL 10MEQ/50ML IVPB 50 ML IV SCH (19:30)
[2023-08-02] MEDS ORDERED: diphenhydrAMINE 25 MG TABLET PO PRN (19:30)
[2023-08-02] MEDS ORDERED: POTASSIUM CL 10MEQ/50ML IVPB 50 ML IV ONE (19:36)
[2023-08-02 19:50] VITALS: BP 135/82
[2023-08-02] MEDS: 1/2 NS IV SOLUTION 1000 ML 1,000 ML IV SCH ×2 (19:50→23:36)
[2023-08-02] MEDS: D5 1/2 NS 1,000 ML IV 1,000 ML IV SCH ×2 (19:50→23:01)
[2023-08-02] MEDS: POTASSIUM CL 10MEQ/50ML IVPB 50 ML IV SCH ×2 (19:51→23:33)
[2023-08-02 20:03] LABS: CALCIUM 8.2 MG/DL (8.5-10.1); CREATININE SERUM 5.2 MG/DL (0.60-1.30); POTASSIUM 4.6 MMOL/L (3.6-5.0)
--- NOTE | 2023-08-02 20:41 | Tele-ICU Progress Note ---
Progress Note 32M with DM1, CKD5 not yet requiring HD secondary to nephrotic syndrome vs IGA nephropathy, HTN, epilepsy, gastroparesis admitted with DKA. Patient has had his insulin pump running at 1.3u/hr, but his Dexcom has been broken making it difficult to manage. Patient developed vomiting immediately after eating breakfast this morning. Has been unable to keep anything down since then. Otherwise denies any recent illness, cough, SOB, diarrhea, fevers. In addition, he ran out of prednisone 5 mg daily about 1 week ago and has been unable to get it refilled. He reported nephrotic syndrome, per landing scaler IgA nephropathy. Baseline creatinine from this summer was 5.45 with a GFR of 14. He has apparently been operating at this level for several years. UOP has been good in ED. Prior to transfer to ICU, patient was hydrated, given insulin 5u IV x1. Assessment/Plan: - DKA: possibly secondary to malfunctioning equipment. No evidence of infection or other inciting event. ---Initial bicarb 6, gap 25, beta-hydroxy 10.92 ---insulin gtt initiated on arrival to ICU ---hold insulin pump ---serial lab monitoring ---glucose has been relatively low, will need dextrose containing solution to support insulin gtt. Currently on D5 1/2 NS @75 per DKA protocol and HCO3 in sterile water @ 75 per nephro (see below). Will change to D5HCO3 @75 for now and will adjust as needed for glucose support. - CKD: stage 5, stable. Secondary to IgA nephropathy. -- Continue IV fluid hydration -- restart prednisone 5 mg daily per outside landing scaler. No need for steroid load/bolus -- Sodium bicarb infusion, will adjust as above - Hypertension ---continue home rx - Epilepsy ---continue home zonisamide 400 mg nightly Patient assessed via real time audiovisual communication system. CCT 26 min Focused Exam Height, Weight, BMI Height: 5'1.00" Weight: 132lbs. oz. 59.102161sh; 21.88 BMI Method:Stated BRITTON CRUZ MD Aug 02, 2023 20:41
[2023-08-02] MEDS ORDERED: ZONISAMIDE 400 MG PO SCH (21:00)
[2023-08-02 21:34] LABS: POTASSIUM 4.3 MMOL/L (3.6-5.0)
[2023-08-02 21:35] LABS: CALCIUM 7.4 MG/DL (8.5-10.1)
[2023-08-02 21:40] LABS: CREATININE SERUM 4.73 MG/DL (0.60-1.30)
[2023-08-02] MEDS: SENNOSIDES 8.6 MG TABLET PO SCH (21:41)
[2023-08-02] MEDS: DOCUSATE SODIUM 100 MG CAPSULE PO SCH (21:41)
[2023-08-02] MEDS: ZONISAMIDE 100 MG PO SCH (21:43)
[2023-08-02] MEDS: SERTRALINE 100 MG TABLET PO SCH (21:43)
[2023-08-03] MEDS ORDERED: D5W 1,000 ML IV SOLUTION 1,000 ML ONE (00:06)
[2023-08-03] MEDS ORDERED: SODIUM BICARB 8.4% 50 MEQ/50 ML (ABBOTT) SYR ONE (00:06)
[2023-08-03] MEDS: POTASSIUM CL 10MEQ/50ML IVPB 50 ML IV SCH ×5 (01:33→10:31)
[2023-08-03] MEDS: SODIUM BICARBONATE 8.4% SYR 150 MEQ in D5W 1,000 ML IV SOLUTION 1,000 ML IV SCH ×2 (02:14→06:56)
[2023-08-03] MEDS: oxyCODONE IMMEDIATE RELEASE 5 MG TABLET PO PRN ×2 (03:17→22:00)
[2023-08-03] MEDS: 1/2 NS IV SOLUTION 1000 ML 1,000 ML IV SCH ×2 (04:43→07:30)
[2023-08-03 04:56] LABS: ABG OXYGEN SATURATION 100 % (94-100); ABG PCO2 33 MMHG (35-45); ABG PO2 104 MMHG (79-93); ABG TCO2 18.8 MMOL/L (21.0-31.0)
[2023-08-03 04:57] LABS: BASOPHILS % (AUTO) 1 % (0-10); EOSINOPHILS # (AUTO) 0.9 10^3/uL (0.0-0.3); EOSINOPHILS % (AUTO) 12 % (0-10); HEMATOCRIT 26 % (40-54); HEMOGLOBIN 8.8 g/dL (13.3-17.7); LYMPHOCYTES # (AUTO) 1.5 10^3/uL (1.0-4.0); LYMPHOCYTES % (AUTO) 19 % (12-44); MEAN CORPUSCULAR HEMOGLOBIN 29 pg (25-34); MEAN CORPUSCULAR HGB CONC 34 g/dL (32-36); MEAN CORPUSCULAR VOLUME 85 fL (80-99); MEAN PLATELET VOLUME 9.6 fL (9.0-12.2); MONOCYTES # (AUTO) 0.6 10^3/uL (0.0-1.0); MONOCYTES % (AUTO) 7 % (0-12); NEUTROPHILS # (AUTO) 4.9 10^3/uL (1.8-7.8); NEUTROPHILS % (AUTO) 62 % (42-75); PLATELET COUNT 268 10^3/uL (130-400); WHITE BLOOD COUNT 7.9 10^3/uL (4.3-11.0)
[2023-08-03 04:58] LABS: ABG PH 7.34 (7.37-7.43); INSPIRED O2 ROOM AIR; VENTILATOR NO
[2023-08-03 05:13] LABS: ALBUMIN 3.1 GM/DL (3.2-4.5); POTASSIUM 3.9 MMOL/L (3.6-5.0)
[2023-08-03 05:14] LABS: CALCIUM 7.6 MG/DL (8.5-10.1)
[2023-08-03 05:16] LABS: TOTAL PROTEIN 5.1 GM/DL (6.4-8.2)
[2023-08-03 05:17] LABS: BILIRUBIN,TOTAL 0.2 MG/DL (0.1-1.0)
[2023-08-03 05:19] LABS: CREATININE SERUM 4.69 MG/DL (0.60-1.30); PHOSPHORUS 2.8 MG/DL (2.3-4.7)
[2023-08-03 05:22] LABS: MAGNESIUM 1.3 MG/DL (1.6-2.4)
[2023-08-03] MEDS ORDERED: POTASSIUM CHLORIDE 20 MEQ TABLET PO SCH (06:00)
[2023-08-03] MEDS ORDERED: MAGNESIUM 1 GM/100 ML IVPB 100 ML IV SCH (06:00)
[2023-08-03] MEDS ORDERED: POTASSIUM CL 10MEQ/50ML IVPB 50 ML IV SCH (06:00)
[2023-08-03] MEDS ORDERED: PROPRANOLOL 20 MG TABLET PO SCH (09:00)
[2023-08-03] MEDS: SENNOSIDES 8.6 MG TABLET PO SCH ×2 (09:13→20:35)
[2023-08-03] MEDS: DOCUSATE SODIUM 100 MG CAPSULE PO SCH ×2 (09:13→20:35)
[2023-08-03] MEDS ORDERED: SODIUM BICARBONATE 8.4% SYR 150 MEQ in D5W 1,000 ML IV SOLUTION 1,000 ML IV SCH (09:30)
[2023-08-03] MEDS: amLODIPine 5 MG TABLET PO SCH (09:35)
[2023-08-03] MEDS ORDERED: AMLO-250 PO (10:55)
[2023-08-03] MEDS ORDERED: SERT-414 PO (10:55)
[2023-08-03] MEDS ORDERED: PROP60CA PO (10:55)
[2023-08-03] MEDS ORDERED: ZONI100C79 PO (10:55)
[2023-08-03] MEDS ORDERED: NF-SODBICA PO (10:55)
[2023-08-03] MEDS ORDERED: VITA400T9 PO (10:55)
[2023-08-03] MEDS ORDERED: CHOL20002 PO (10:55)
[2023-08-03] MEDS ORDERED: KRIL1CAP PO (10:55)
[2023-08-03] MEDS ORDERED: PRED5TAB PO (10:55)
[2023-08-03 11:21] LABS: POTASSIUM 3.8 MMOL/L (3.6-5.0)
[2023-08-03 11:22] LABS: CALCIUM 7.7 MG/DL (8.5-10.1)
[2023-08-03 11:26] LABS: CREATININE SERUM 4.43 MG/DL (0.60-1.30)
[2023-08-03] MEDS ORDERED: inSUlin DETERMIR 1 UNIT/0.01 ML (CHARGE PER UNIT) SQ ONE (11:30)
--- NOTE | 2023-08-03 11:55 | Diagnostic Imaging Report ---
INDICATION: Diabetic ketoacidosis COMPARISON: 03/29/2023 FINDINGS: Single frontal view of the chest demonstrates normal heart size and pulmonary vascularity. The lungs are well aerated and clear. No large pleural effusion or pneumothorax is seen. The visualized osseous structures show no acute abnormalities. Left internal jugular Port-A-Cath is seen with tip in the high SVC IMPRESSION: 1. No acute cardiopulmonary process. Dictated by: Dictated on workstation # [id number]
--- NOTE | 2023-08-03 12:26 | Progress Note - Hospitalist ---
DASH GILBERT 08/03/23 1226: Subjective HPI/CC On Admission Date Seen by Provider: Aug 03, 2023 Time Seen by Provider: 12:21 Pt is a 32 y/o M w/ pmhx of type 1 diabetes and chronic kidney disease who presented to the ER yesterday with vomiting and hyperglycemia. His blood sugar was 301 via EMS. He reports his Dexcom device is broken and which has made his diabetes hard to manage. He believes his pump is still working properly. He gave himself a 3 unit bolus upon arrival to the emergency room. He reports being out of his prednisone 5 mg daily dose for about [address] Diana Brunner is his regular cleaning manager and she believes he has IgA nephropathy. His reported baseline creatinine from the summer was 5.45 with a GFR of 14. He denies any recent illness. He denies any cough, shortness of breath, diarrhea, or fevers. He had some chills earlier which have resolved. His primary care provider is Dr. Jefferson. EMS started IV hydration with normal saline and administered Zofran 4 mg in route. Subjective/Events-last exam Pt is doing better overall with no further vomiting after being admitted. States that he feels better but still is very weak, only getting up to go to the bathroom. Denies any hematuria. Reports recent diarrhea since being in the hospital. Denies abd pain, SOB, fever, chills or CP. Review of Systems General: No Chills; Fatigue, Malaise HEENT: No Head Aches, No Visual Changes Pulmonary: No Dyspnea, No Cough Cardiovascular: No: Chest Pain, Palpitations Gastrointestinal: Diarrhea; No: Nausea, Vomiting, Abdominal Pain Genitourinary: No Dysuria, No Hematuria Musculoskeletal: No: back pain, leg pain Neurological: No: Change in speech, Confusion Focused Exam Sepsis Stage: Ruled Out Objective Exam Vital Signs Vital Signs Date Time Temp Pulse Resp B/P (MAP) Pulse Ox O2 Delivery O2 Flow Rate FiO2 08/03/23 12:07 37.3 08/03/23 12:00 72 28 97 Room Air 08/03/23 07:53 0.00 08/02/23 19:50 21 Capillary Refill : Less Than 3 Seconds General Appearance: No Apparent Distress, Chronically ill HEENT: PERRL/EOMI, Normal ENT Inspection Neck: Normal Inspection, Non Tender Respiratory: Chest Non Tender, Lungs Clear, Normal Breath Sounds, No Accessory Muscle Use, No Respiratory Distress Cardiovascular: Regular Rate, Rhythm, No Murmur, Normal Peripheral Pulses Gastrointestinal: Normal Bowel Sounds, Non Tender, Soft Extremity: Normal Inspection, No Calf Tenderness, No Pedal Edema Neurologic/Psychiatric: Alert, Oriented x3, No Motor/Sensory Deficits, Normal Mood/Affect Skin: Normal Color, Warm/Dry Lymphatic: No Adenopathy Results/Procedures Lab Laboratory Tests 08/02/23 15:53 08/02/23 19:39 08/02/23 21:20 08/03/23 04:27 08/03/23 11:00 Patient resulted labs reviewed. Imaging: Reviewed Imaging Report Assessment/Plan Assessment and Plan Assess & Plan/Chief Complaint DKA - Anion gap went from 25 on admission to 7 today - Transition from insulin drip to SQ insulin- long acting insulin 10 units - Dextrose/NaCl replacement - KCl replacement - Should be able to move down to fourth today CKD stage 5, nephrotic syndrome - Continue prednisone 5 mg/d - IV hydration - Sodium bicarb - Creatinine trending down, today is 4.43 - Consult with regular cleaning manager as needed HTN - Continue home meds- amlodipine and propanolol Epilepsy - Continue nightly zonisamide 400 mg NADEGE AMEZQUITA DO 08/04/23 0607: Subjective Subjective/Events-last exam Patient doing much better Will moved down to fourth floor Objective Exam General Appearance: No Apparent Distress, WD/WN Supervisory-Addendum Brief Verification & Attestation Participated in pt care: history, MDM, physical Personally performed: exam, history, MDM, supervision of care Care discussed with: Medical Student Procedures: n/a Results interpretation: Verified all documentation Verification and Attestation of Medical Student E/M Service A medical student performed and documented this service in my presence. I reviewed and verified all information documented by the medical student and made modifications to such information, when appropriate. I personally performed the physical exam and medical decision making. Nadege Amezquita, Aug 04, 2023,06:07 DASH GILBERT Aug 03, 2023 12:26 NADEGE AMEZQUITA DO Aug 04, 2023 06:07
--- NOTE | 2023-08-03 12:33 | Physical Therapy Progress Note ---
Therapy Progress Note Patient is currently independent with all gross motor skills safely and does not require skilled PT intervention a this time. YESSICA GAINES PT Aug 03, 2023 12:32
[2023-08-03] MEDS: NS IV 1000 ML 1,000 ML IV SCH (14:20)
[2023-08-03 15:48] VITALS: BP 124/80
[2023-08-03] MEDS: inSUlin ASPART 1 UNIT/0.01 ML (PER UNIT) SC SCH ×2 (16:18→20:37)
[2023-08-03 19:51] VITALS: BP 140/86
[2023-08-03] MEDS ORDERED: ENOXAPARIN 30 MG/0.3 ML SYRINGE SC SCH (20:00)
[2023-08-03] MEDS: ZONISAMIDE 100 MG PO SCH (20:34)
[2023-08-03] MEDS: SODIUM BICARBONATE 650 MG TABLET PO SCH (20:34)
[2023-08-03] MEDS: SERTRALINE 100 MG TABLET PO SCH (20:35)
[2023-08-03] MEDS: inSUlin DETERMIR 1 UNIT/0.01 ML (CHARGE PER UNIT) SQ SCH (20:37)
[2023-08-03] MEDS ORDERED: ZONISAMIDE 100 MG PO SCH (21:00)
[2023-08-03] MEDS ORDERED: CALCITRIOL 0.25 MCG CAPSULE PO SCH (21:00)
[2023-08-03] MEDS ORDERED: predniSONE 5 MG TABLET PO SCH (21:00)
[2023-08-03 23:28] VITALS: BP 140/86
[2023-08-04] MEDS: NS IV 1000 ML 1,000 ML IV SCH (01:43)
[2023-08-04 03:29] VITALS: BP 136/70
[2023-08-04 04:38] LABS: BASOPHILS # (AUTO) 0.1 10^3/uL (0.0-0.1); BASOPHILS % (AUTO) 1 % (0-10); EOSINOPHILS # (AUTO) 4.2 10^3/uL (0.0-0.3); EOSINOPHILS % (AUTO) 37 % (0-10); HEMATOCRIT 28 % (40-54); HEMOGLOBIN 9.8 g/dL (13.3-17.7); LYMPHOCYTES # (AUTO) 2.4 10^3/uL (1.0-4.0); LYMPHOCYTES % (AUTO) 21 % (12-44); MEAN CORPUSCULAR HEMOGLOBIN 29 pg (25-34); MEAN CORPUSCULAR HGB CONC 35 g/dL (32-36); MEAN CORPUSCULAR VOLUME 85 fL (80-99); MONOCYTES # (AUTO) 0.7 10^3/uL (0.0-1.0); MONOCYTES % (AUTO) 7 % (0-12); NEUTROPHILS # (AUTO) 3.8 10^3/uL (1.8-7.8); NEUTROPHILS % (AUTO) 34 % (42-75); PLATELET COUNT 265 10^3/uL (130-400); WHITE BLOOD COUNT 11.3 10^3/uL (4.3-11.0)
[2023-08-04 04:47] LABS: ALBUMIN 3.2 GM/DL (3.2-4.5)
[2023-08-04 04:49] LABS: CALCIUM 8.1 MG/DL (8.5-10.1)
[2023-08-04 04:50] LABS: TOTAL PROTEIN 5.2 GM/DL (6.4-8.2)
[2023-08-04 04:51] LABS: BILIRUBIN,TOTAL 0.2 MG/DL (0.1-1.0)
[2023-08-04 04:53] LABS: CREATININE SERUM 4.19 MG/DL (0.60-1.30)
[2023-08-04 04:56] LABS: MAGNESIUM 1.3 MG/DL (1.6-2.4)
[2023-08-04] MEDS: inSUlin ASPART 1 UNIT/0.01 ML (PER UNIT) SC SCH ×2 (05:11→10:41)
[2023-08-04] MEDS ORDERED: predniSONE 5 MG TABLET PO SCH (07:00)
[2023-08-04 07:45] VITALS: BP 156/75
[2023-08-04] MEDS: amLODIPine 5 MG TABLET PO SCH (08:23)
[2023-08-04] MEDS: SODIUM BICARBONATE 650 MG TABLET PO SCH (08:23)
[2023-08-04] MEDS: SENNOSIDES 8.6 MG TABLET PO SCH (08:24)
[2023-08-04] MEDS: DOCUSATE SODIUM 100 MG CAPSULE PO SCH (08:24)
[2023-08-04] MEDS: oxyCODONE IMMEDIATE RELEASE 5 MG TABLET PO PRN (08:44)
[2023-08-04] MEDS ORDERED: amLODIPine 5 MG TABLET PO SCH (09:00)
[2023-08-04] MEDS ORDERED: SERTRALINE 100 MG TABLET PO SCH (09:00)
[2023-08-04] MEDS ORDERED: PRED5TAB PO (10:10)
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
[2023-08-04] MEDS: inSUlin DETERMIR 1 UNIT/0.01 ML (CHARGE PER UNIT) SQ SCH (10:41)
[2023-08-04] MEDS ORDERED: INSU100V16 SQ (11:05)
[2023-08-04 11:45] VITALS: BP 158/94
[2023-08-04 13:15] VITALS: BP 158/94
[2023-08-04] MEDS ORDERED: PROPRANOLOL 60 MG PO SCH (21:00)
== END 2023-08-04 13:20 | disposition home or self-care (01) | DRG 638 ==
LOC: EDUNIT# 15:47 → ER 15:48 → ICU 18:50 → 4TH 08-03 14:36 → OBSVTOIN 08-03 14:48 → 4TH 08-03 16:17
PROVIDERS: ADMIT Internal Medicine; ATTEND Internal Medicine
DX: E10.10 Type 1 diabetes mellitus with ketoacidosis without coma (principal); I12.0 Hypertensive chronic kidney disease with stage 5 chronic kidney disease or end stage renal disease; N02.B1 Recurrent and persistent immunoglobulin A nephropathy with glomerular lesion; N17.9 Acute kidney failure, unspecified; N18.5 Chronic kidney disease, stage 5; E10.21 Type 1 diabetes mellitus with diabetic nephropathy; E10.22 Type 1 diabetes mellitus with diabetic chronic kidney disease; N18.9 Chronic kidney disease, unspecified; G40.909 Epilepsy, unspecified, not intractable, without status epilepticus; E86.0 Dehydration; Z96.41 Presence of insulin pump (external) (internal); Z79.4 Long term (current) use of insulin
CPT/HCPCS: 36415; 36556; 36600; 71045; 80048; 80053; 80306; 80320; 81000; 82010; 82805; 82947; 83690; 83735; 84100; 85007; 85025; 85027; 87081; G0378